=== PATIENT | female | born 1935 | race Caucasian/White ===

== ENCOUNTER → 2016-08-29 | Day surgery (SDC) | payer OTHER, MEDICARE ==
[2016-08-21 07:50] VITALS: Ht 151.1 cm; Wt 52.3 kg
[~2016-08-29] VITALS: Ht 151.1 cm; Wt 52.3 kg
[~2016-08-29] MED LIST: ACET1TAB84 PO; ALBUAER INH; APR50 PO; ATOR10TA88 PO; BRIM0.1S OPB; CALC500C3 PO; CHOL2000 PO; DOCU100C PO; FLUT0.15 NAE; FLUT1INH INH; LATA0.5S OPB; LIDOCAINE HCL 2% 2 ML VIAL (20MG/ML) ONE; LOSA1TAB38 PO; MELA5CAP PO; MULT-506 PO; NAPR1TAB9 PO; ONDANSETRON INJ 2 MG/ML 2 ML VIAL ONE; PRLSR20 PO; PROPOFOL IV EMULSION 10 MG/ML 20 ML VIAL IV ONE; PSYL48.59; RANI150T3 PO; SODIUM CHLORIDE 0.9% 500ML 500 ML IV ONE
--- NOTE | 2016-08-29 11:26 | Endo History and Physical ---
History & Physical Date of Service: Aug 29, 2016. Chief Complaint: GERD Referring Physician: Dr Jammie Bergeron History of Present Illness 81 yo CF who presents for EGD secondary to GERD. Past Surgical History Hx Cardiac Surgery: No Hx Internal Defibrillator: No Hx Pacemaker: No Hx Abdominal Surgery: Yes (ECTOPIC SX) Hx Post-Op Nausea and Vomiting: No Hx Cancer Surgery: No Hx Thoracic Surgery: No Hx Orthopedic: No Hx Urinary Tract Surgery: No Family History None Social History Smoking Status: Never Smoker Hx Substance Use: No Hx Alcohol Use: Yes (VERY RARELY) Allergies Coded Allergies: Beta Adrenergic Blockers (Verified Allergy, Mild, UNKNOWN, 08/29/16) Animal Dander (Verified Allergy, Unknown, INCREASES HER ASTHMA SYMPTOMS, ) Current Medications Reported Home Medications Medications Dose Route/Sig Max Daily Dose Days Date Category Proventil Hfa (Albuterol Sulfate) 108 Mcg/Act Aer 2 Puff INH DIRECTED PRN 08/21/16 Reported Xalatan 0.005% Oph Janny (Latanoprost) 0.005 % Janny 1 Drops OPB BID 08/21/16 Reported Alphagan P Oph (Brimonidine Tartrate) 0.1 % Janny 1 Drop OPB BID 08/21/16 Reported Vitamin D3 (Cholecalciferol) 2,000 Unit Cap 1 Cap PO QAM 90 08/21/16 Reported Prilosec (Omeprazole) 20 Mg Capcr 20 Mg PO QAM 08/21/16 Reported Zantac (Ranitidine HCl) 150 Mg Tab 2 Tab PO HS 08/21/16 Reported Lipitor (Atorvastatin Calcium) 10 Mg Tab 10 Mg PO 3XWK 08/21/16 Reported Cozaar (Losartan Potassium) 100 Mg Tab 100 Mg PO HS 08/21/16 Reported Hydralazine HCl 50 Mg Tab 1 Tab PO TID 08/21/16 Reported Vital Signs Weight (Kilograms): 52.27 Height (Feet): 4 Height (Inches): 11.5 Date Time Temp Pulse Resp B/P Pulse Ox O2 Delivery O2 Flow Rate FiO2 08/29/16 10:56 36.4 87 24 186/62 98 Room Air Physical Exam General Appearance: WD/WN, no apparent distress Respiratory/Chest: Auscultation: breath sounds normal Cardiovascular: Heart Auscultation: RRR Abdomen: Bowel Sounds: normal Inspection & Palpation: soft, non-distended, no tenderness, guarding & rebound Assessment and Plan Assessment: 81 yo CF who presents for EGD secondary to GERD. Plan: Proceed with EGD secondary to GERD
--- NOTE | 2016-08-29 12:25 | GI REPORT ---
Procedure Date: 08/29/2016 12:04 PM Procedure: Upper GI endoscopy Indications: Gastro-esophageal reflux disease Medicines: Monitored Anesthesia Care Complications: No immediate complications. Estimated Blood Loss: Estimated blood loss: none. Procedure: Pre-Anesthesia Assessment: - Prior to the procedure, a History and Physical was performed, and patient medications and allergies were reviewed. The patient's tolerance of previous anesthesia was also reviewed. The risks and benefits of the procedure and the sedation options and risks were discussed with the patient. All questions were answered, and informed consent was obtained. Prior Anticoagulants: The patient has taken no previous anticoagulant or antiplatelet agents. ASA Grade Assessment: III - A patient with severe systemic disease. After reviewing the risks and benefits, the patient was deemed in satisfactory condition to undergo the procedure. After obtaining informed consent, the endoscope was passed under direct vision. Throughout the procedure, the patient's blood pressure, pulse, and oxygen saturations were monitored continuously. The scope was introduced through the mouth, and advanced to the second part of duodenum. The upper GI endoscopy was accomplished without difficulty. The patient tolerated the procedure well. Findings: A mild Schatzki ring (acquired) was found at the gastroesophageal junction. A TTS dilator was passed through the scope. Dilation with a 12-13.5-15 mm balloon (to a maximum balloon size of 15 mm) and a 15-16.5-18 mm balloon (to a maximum balloon size of 18 mm) dilator was performed. The dilation site was examined and showed no change. A medium-sized hiatus hernia was present. The examined duodenum was normal. Impression: - Mild Schatzki ring. Dilated. - Medium-sized hiatus hernia. - Normal examined duodenum. - No specimens collected. Recommendation: - Resume previous diet. - Continue present medications. - Return to GI clinic as previously scheduled. Denton Gaines DO 08/29/2016 12:24:41 PM This report has been signed electronically. Note Initiated On: 08/29/2016 12:04 PM
--- NOTE | 2016-08-29 12:31 | Discharge Instructions ---
Endoscopy Patient Instructions Date / Procedure(s) Performed Aug 29, 2016. EGD Allergy Information Coded Allergies: Beta Adrenergic Blockers (Verified Allergy, Mild, UNKNOWN, 08/29/16) Animal Dander (Verified Allergy, Unknown, INCREASES HER ASTHMA SYMPTOMS, ) Discharge Date / Findings Aug 29, 2016. Schatzki's Ring s/p dilation Hiatal hernia Medication Instructions Stopped Medication(s): Hydralozine,Vitamin D3 OK to resume all medications today as prescribed. Reported Home Medications Medications Dose Route/Sig Max Daily Dose Days Date Category Proventil Hfa (Albuterol Sulfate) 108 Mcg/Act Aer 2 Puff INH DIRECTED PRN 08/21/16 Reported Xalatan 0.005% Oph Janny (Latanoprost) 0.005 % Janny 1 Drops OPB BID 08/21/16 Reported Alphagan P Oph (Brimonidine Tartrate) 0.1 % Janny 1 Drop OPB BID 08/21/16 Reported Vitamin D3 (Cholecalciferol) 2,000 Unit Cap 1 Cap PO QAM 90 08/21/16 Reported Prilosec (Omeprazole) 20 Mg Capcr 20 Mg PO QAM 08/21/16 Reported Zantac (Ranitidine HCl) 150 Mg Tab 2 Tab PO HS 08/21/16 Reported Lipitor (Atorvastatin Calcium) 10 Mg Tab 10 Mg PO 3XWK 08/21/16 Reported Cozaar (Losartan Potassium) 100 Mg Tab 100 Mg PO HS 08/21/16 Reported Hydralazine HCl 50 Mg Tab 1 Tab PO TID 08/21/16 Reported Provider Instructions Activity Restrictions - No exercising or heavy lifting for 24 hours. - Do not drink alcohol the day of the procedure. - Do not drive a car or operate machinery until the day after the procedure. - Do not make any important decisions or sign important papers in 24 hours after the procedure. Following Day: - Return to full activity which may include returning to work/school. Diet Start your diet with liquids and light foods (jello, soup, juice, toast). Then eat your usual diet if not nauseated. Treatment For Common After Affects For mild abdominal pain, bloating, or excessive gas: - Rest - Eat lightly - Lie on right side Follow-Up Information Follow-up with Dr Jammie Bergeron as scheduled Anesthesia Information What You Should Know You have had a procedure that required some medicine to reduce anxiety and discomfort. This treatment is called moderate sedation. After receiving the treatment, you may be sleepy, but you will be able to breathe on your own. The effects of the treatment may last for several hours. Follow these instructions along with Activity/Diet recommendations noted above: * Do NOT do anything where dizziness or clumsiness would be dangerous. * Rest quietly at home today, then you can be up and about tomorrow. * Have a responsible person stay with you the rest of today. * You may have had an I.V. today. If so, you may take the dressing off later today. Recommendations Call your doctor if: * Trouble breathing * Continuous vomiting for more than 24 hours * Temperature above 101 degrees * Severe abdominal pain or bloating * Pain not relieved by pain medicine ordered * There is increased drainage or redness from any incision * A large amount of rectal bleeding greater than 2-3 tablespoons. (If you had a polyp/s removed or have hemorrhoids, a small amount of blood - from the rectum is to be expected.) * You have any unanswered questions or concerns. IN THE EVENT OF A SERIOUS EMERGENCY, GO TO THE NEAREST EMERGENCY ROOM Your discharge instructions were prepared by provider Denton Gaines. Patient Instructions Signature Page Maude Pepper Patient (or Guardian) Signature/Date: I have read and understand the instructions given to me by my caregivers. Caregiver/RN/Doctor Signature/Date: The above-named patient and/or guardian has received patient instructions on this date. + Original Patient Signature Page (only) stays with chart. Please make copy for patient.
[2016-08-29 12:57] VITALS: BP 176/74; PULSE 54; O2SAT 98
--- NOTE | 2016-08-29 13:04 | Anesthesiology Progress Note ---
Anesthesia Post Op Note Date & Time Aug 29, 2016 at 13:03 Vital Signs Pain Intensity: 0 Vital Signs Past 12 Hours Date Time Temp Pulse Resp B/P Pulse Ox O2 Delivery O2 Flow Rate FiO2 08/29/16 12:53 175/70 08/29/16 12:42 53 22 180/50 98 Room Air 08/29/16 12:27 54 22 122/49 99 Room Air 08/29/16 10:56 36.4 87 24 186/62 98 Room Air Notes Mental Status: alert / awake / arousable, participated in evaluation Pt Amnestic to Procedure: Yes Nausea / Vomiting: adequately controlled Pain: adequately controlled Airway Patency, RR, SpO2: stable & adequate BP & HR: stable & adequate Hydration State: stable & adequate Anesthetic Complications: no major complications apparent
== END | disposition home or self-care (01) ==
LOC: C.GI 10:29
PROVIDERS: ATTEND Internal Medicine
DX: K21.9 Gastro-esophageal reflux disease without esophagitis (principal); K22.2 Esophageal obstruction; K44.9 Diaphragmatic hernia without obstruction or gangrene; K62.89 Other specified diseases of anus and rectum; K59.00 Constipation, unspecified; Z68.23 Body mass index [BMI] 23.0-23.9, adult; Z90.89 Acquired absence of other organs; E11.9 Type 2 diabetes mellitus without complications; F41.9 Anxiety disorder, unspecified; Z79.82 Long term (current) use of aspirin; Z82.49 Family history of ischemic heart disease and other diseases of the circulatory system; Z83.3 Family history of diabetes mellitus

== ENCOUNTER → 2016-11-25 | Day surgery (SDC) | payer OTHER, MEDICARE ==
[2016-11-21 14:22] VITALS: Ht 151.1 cm; Wt 52.3 kg
[~2016-11-25] VITALS: Ht 151.1 cm; Wt 52.3 kg
[~2016-11-25] MED LIST changes: +ATOR10TA82 PO; -ATOR10TA88 PO; +BRIMONIDINE TART 0.2% OP SOLN PER DROP CHARGE OPR ONE; +BRIMONIDINE TART 0.2% OP SOLN PER DROP CHARGE OPR SCH; +BRIMONIDINE TARTRATE 0.2% 5ML OP SCH; -LATA0.5S OPB; -LIDOCAINE HCL 2% 2 ML VIAL (20MG/ML) ONE; -ONDANSETRON INJ 2 MG/ML 2 ML VIAL ONE; +PILOCARPINE HCL 2% OP SOLN PER DROP CHARGE OPR SCH; +PREDNISOLONE 1% OP ONE; +PROPARACAINE 0.5% OP SOLN PER DROP CHARGE OPR SCH; -PROPOFOL IV EMULSION 10 MG/ML 20 ML VIAL IV ONE; +PrednisoLONE ACET 1% OP SUSP 5 ML BTL OP SCH; -SODIUM CHLORIDE 0.9% 500ML 500 ML IV ONE
--- NOTE | 2016-11-25 11:42 | History and Physical: Surg Cnt ---
History & Physical Date Nov 25, 2016. Chief Complaint glaucoma, right eye History of Present Illness The patient is a 81 year old female with complaints of uncontrolled glaucoma right eye Past Medical/Surgical History Medical Problems: (1) Asthma (2) Diabetes mellitus type 2 (3) Hiatal hernia (4) Hypertension Additional History Hepatic Disease: No Endocrine Disorder: No Kidney Disease: No Hypertension: Yes Heart Disease: No Bleeding Tendencies: No Infectious Diseases: No Allergies Coded Allergies: Beta Adrenergic Blockers (Verified Allergy, Mild, MAKES BREATHING/ASTHMA WORSE, 11/21/16) Animal Dander (Verified Allergy, Unknown, INCREASES HER ASTHMA SYMPTOMS, ) Home Medications Scheduled Atorvastatin (Lipitor), 10 MG PO 3XWK Brimonidine Tartrate (Alphagan P Oph), 1 DROP OPB BID Cholecalciferol (Vitamin D3), 1 CAP PO QAM Hydralazine HCl (Hydralazine HCl), 1 TAB PO TID Losartan Potassium (Cozaar), 100 MG PO HS Scheduled PRN Albuterol Sulfate (Proventil Hfa), 2 PUFF INH DIRECTED PRN for Shortness of Breath Fluticasone Furoate-Vilanterol (Breo Ellipta), 1 PUFF INH QAM PRN for Shortness of Breath Omeprazole (Prilosec), 20 MG PO QAM PRN for Indigestion Ranitidine Hcl (Zantac), 2 TAB PO HS PRN for Indigestion Physical Examination Skin: warm/dry, no rash Eyes: normal inspection, EOMI, sclerae normal ENT: normal ENT inspection, pharynx normal Head: normocephalic, atraumatic Neck: supple, no adenopathy, trachea midline Respiratory/Chest: lungs clear, normal breath sounds, no respiratory distress Cardiovascular: regular rate, rhythm, no edema, no murmur Abdomen / GI: normal bowel sounds, non tender Back: normal inspection Extremities: normal inspection, normal range of motion Neurologic/Psych: no motor/sensory deficits, alert, normal reflexes, oriented x 3 Diagnosis Glaucoma, right eye ASA Classification: ASA Class II Plan of Treatment Stable for SLT right eye
[2016-11-25 12:03] VITALS: BP 158/48; PULSE 49; O2SAT 97
--- NOTE | 2016-11-25 12:05 | Discharge Instructions-SurgCtr ---
Discharge Instructions Date of Service Nov 25, 2016. Visit Reason for Visit: Glaucoma Right Eye Discharge Discharge Diagnosis / Problem: glaucoma Discharge Goals Goal(s): Improve disease control Activity Recommendations Activity Limitations: per Instructions/Follow-up section Anesthesia . Post Anesthesia Instructions: If you have had General Anesthesia or IV Sedation: * Do not drive today. * Resume driving when surgeon permits. * Do not make important decisions or sign legal documents today. * Call surgeon for: 1. Temperature elevations greater than 101 degrees F. 2. Uncontrollable pain. 3. Excessive bleeding. 4. Persistent nausea and vomiting. 5. Medication intolerance (nausea, vomiting or rash). * For nausea and vomiting use only clear liquids such as: tea, soda, bouillon until nausea subsides, then gradually increase diet as tolerated. * If you have any concerns or questions, call your surgeon's office. If physician is unavailable and it is an emergency, call 911 or go to the nearest emergency room. . Instructions / Follow-Up Instructions / Follow-Up ACTIVITY RECOMMENDATIONS: * No limitations RETURN TO SCHOOL/WORK: * No limitations DIET: * No limitations MEDICATIONS: Resume previous medications unless instructed otherwise by your surgeon. * Please use Prednisolone acetate drops prescription given to you at your office appointment as follows: 1 drop in effected eye 4 times a day for 5 days. * Continue all glaucoma drops as usual with no interruption to either eye. SPECIAL CARE INSTRUCTIONS: Call your doctor at with any concerns or problems. FOLLOW UP VISIT: Follow-up with Dr Sage in 1 hour. Diet Recommendations Home Diet: resume previous diet Pending Studies Studies pending at discharge: no Medical Emergencies . Who to Call and When: Medical Emergencies: If at any time you feel your situation is an emergency, please call 911 immediately. . Non-Emergent Contact Non-Emergency issues call your: [employer] . . "Provider Documentation" section prepared by Scott Sage.
--- NOTE | 2016-11-25 12:06 | [facility] Operative Report ---
Operative Report Date of Service Nov 25, 2016. Operative Report Diagnosis: Glaucoma, open angle, right eye Procedure: SLT right eye, 52 spots, 1.3mJ, inferior 180 degrees Complications: none I attest to the content of the Intraoperative Record and any orders documented therein. Any exceptions are noted below.
== END | disposition home or self-care (01) ==
LOC: X.SURG 10:45
PROVIDERS: ATTEND Ophthalmology
DX: H40.10X0 Unspecified open-angle glaucoma, stage unspecified (principal); J45.909 Unspecified asthma, uncomplicated; E11.9 Type 2 diabetes mellitus without complications; I10 Essential (primary) hypertension; Z79.899 Other long term (current) drug therapy

== ENCOUNTER → 2017-05-04 | Outpatient (CLI) | payer OTHER, MEDICARE ==
[~2017-05-04] VITALS: Ht 151.1 cm; Wt 53.8 kg
[~2017-05-04] MED LIST changes: +ACETAMINOPHEN 500 MG TAB PO SCH; -BRIMONIDINE TART 0.2% OP SOLN PER DROP CHARGE OPR ONE; -BRIMONIDINE TART 0.2% OP SOLN PER DROP CHARGE OPR SCH; -BRIMONIDINE TARTRATE 0.2% 5ML OP SCH; +CEFAZOLIN 1000MG/55 ML D5W IV SCH; +CEFAZOLIN 2000 MG/60 ML D5W 60 ML IV SCH; +CeleBREX 200 MG CAP PO SCH; +DEXAMETHASONE 4 MG TAB PO SCH; +FAMOTIDINE 20 MG TAB PO SCH; +GABAPENTIN 300 MG CAP PO SCH; +LACTATED RINGER'S 1000ML 1,000 ML IV SCH; +LACTATED RINGER'S 1000ML 500 ML IV ONE; +METOCLOPRAMIDE HCL 10 MG TAB PO SCH; -PILOCARPINE HCL 2% OP SOLN PER DROP CHARGE OPR SCH; -PREDNISOLONE 1% OP ONE; -PROPARACAINE 0.5% OP SOLN PER DROP CHARGE OPR SCH; -PrednisoLONE ACET 1% OP SUSP 5 ML BTL OP SCH; +ROPIVACAINE 5MG/ML 30 ML 150 MG, BUPIVACAINE/EPINEPHR 0.5% MPF 30 ML, KETOROLAC TROMETH... INFIL SCH; +TRANEXAMIC ACID INJ 1,000 MG in SODIUM CHLORIDE 0.9% 100ML 100 ML IV SCH
[2017-05-04 12:16] VITALS: Ht 151.1 cm; Wt 53.8 kg
--- NOTE | 2017-05-04 13:12 | PAT Medication Instructions ---
Service Date May 04, 2017. Current Home Medication List Acetaminophen (Tylenol Arthritis Ext Rel), 2 TAB PO Q8H PRN for Pain Albuterol Sulfate (Proventil Hfa), 2 PUFF INH DIRECTED PRN for Shortness of Breath Atorvastatin (Lipitor), 10 MG PO 3XWK Brimonidine Tartrate (Alphagan P Oph), 1 DROP OPB BID Calcium Carbonate (Tums), 1 DOSE PO UD Cholecalciferol (Vitamin D3), 1 CAP PO QAM Docusate Sodium (Stool Softener), 1 TAB PO Q2D Fluticasone Furoate-Vilanterol (Breo Ellipta), 1 PUFF INH Q2D PRN for Shortness of Breath Fluticasone Propionate (Nasal) (Flonase Allergy Relief), 1 DOSE ABAD UD PRN for PRN Hydralazine HCl (Hydralazine HCl), 1 TAB PO TID Losartan Potassium (Cozaar), 100 MG PO HS Melatonin (Melatonin), 1 TAB PO HS Multivitamin (Multivitamin), 1 TAB PO 3XWK Naproxen (Aleve), 220 MG PO UD PRN for Pain Psyllium (Metamucil), Unknown Dose QAM Ranitidine Hcl (Zantac), 1 TAB PO HS PRN for Indigestion Medication Instructions For Your Scheduled Surgery - Continue as usual: Atorvastatin (Lipitor), 10 MG PO 3XWK - Hold the following medications 7 days prior to surgery per surgeon's instructions: Naproxen (Aleve), 220 MG PO UD PRN for Pain - Hold the following medications 24 hours prior to surgery: Losartan Potassium (Cozaar), 100 MG PO HS - Hold the following medications the morning of surgery: Psyllium (Metamucil), Unknown Dose QAM Calcium Carbonate (Tums), 1 DOSE PO UD Cholecalciferol (Vitamin D3), 1 CAP PO QAM Multivitamin (Multivitamin), 1 TAB PO 3XWK - Take the following medications the morning of surgery with a sip of water: Fluticasone Furoate-Vilanterol (Breo Ellipta), 1 PUFF INH Q2D PRN for Shortness of Breath Fluticasone Propionate (Nasal) (Flonase Allergy Relief), 1 DOSE ABAD UD PRN for PRN (if needed) Hydralazine HCl (Hydralazine HCl), 1 TAB PO TID Brimonidine Tartrate (Alphagan P Oph), 1 DROP OPB BID (BRING WITH YOU THE MORNING OF THE SURGERY) Acetaminophen (Tylenol Arthritis Ext Rel), 2 TAB PO Q8H PRN for Pain (can take up to 4 hours before surgery if needed) Albuterol Sulfate (Proventil Hfa), 2 PUFF INH DIRECTED PRN for Shortness of Breath (if needed, AND BRING WITH YOU THE MORNING OF THE SURGERY) - Take the following medications as scheduled the night before surgery: Ranitidine Hcl (Zantac), 1 TAB PO HS PRN for Indigestion Melatonin (Melatonin), 1 TAB PO HS Hydralazine HCl (Hydralazine HCl), 1 TAB PO TID Acetaminophen (Tylenol Arthritis Ext Rel), 2 TAB PO Q8H PRN for Pain (if needed) Albuterol Sulfate (Proventil Hfa), 2 PUFF INH DIRECTED PRN for Shortness of Breath (if needed) Brimonidine Tartrate (Alphagan P Oph), 1 DROP OPB BID Docusate Sodium (Stool Softener), 1 TAB PO Q2D Fluticasone Propionate (Nasal) (Flonase Allergy Relief), 1 DOSE ABAD UD PRN for PRN (if needed) If you have any questions please call us at [phone] or [phone] or [phone]
[2017-05-04 13:50] LABS: BASO % 1.2 %; BASO ABS # 0.09 K/uL (0-0.2); COMPLETE YES; EOS % 2.6 %; HEMATOCRIT 38.9 % (37-47); IG% 0.1 %; LYMPH % 29.7 %; MEAN CELL VOLUME 93.5 fL (80-100); MEAN CORPUSCULAR HEMOGLOBIN 31.7 pg (25-34); MEAN CORPUSCULAR HGB CONC 33.9 g/dl (32-36); MEAN PLATELET VOLUME 9.7 fL (7.4-10.4); MONO % 6.7 %; NEUT % 59.7 %; PLATELET COUNT 322 K/uL (130-400); RED BLOOD COUNT 4.16 M/uL (4.2-5.4); WHITE BLOOD COUNT 7.41 K/uL (4.8-10.8)
[2017-05-04 13:58] LABS: URINE APPEARANCE CLEAR (CLEAR); URINE BILIRUBIN NEG (NEG); URINE COLOR DK YELLOW; URINE EPITHELIAL CELL AUTO >30 /lpf (0-5); URINE NITRITE NEG (NEG); URINE PH 5.5 (4.5-7.5); URINE SPECIFIC GRAVITY 1.016 (1.000-1.030); UROBILINOGEN NEG (NEG)
[2017-05-04 14:01] LABS: MANUAL MICROSCOPIC REQUIRED? NO; REVIEW REQ? NO
[2017-05-04 14:02] LABS: PROTHROMBIN TIME (PATIENT) 10.3 SECONDS (9.0-12.0)
[2017-05-04 15:13] LABS: BUN/CREATININE RATIO 20.9 (10-20); CALCIUM 9.5 mg/dl (8.5-10.1); CREATININE 0.79 mg/dl (0.60-1.20); POTASSIUM 4.8 mmol/L (3.5-5.1)
[2017-05-05 07:09] LABS: ESTIMATED AVERAGE GLUCOSE 146 mg/dl; HA1C FLAG Normal (Normal)
== END | disposition home or self-care (01) ==
LOC: C.LAB 08:00 → EDSTATUS 05-13 08:05
PROVIDERS: ATTEND Orthopaedic Surgery
DX: Z01.812 Encounter for preprocedural laboratory examination (principal); Z01.810 Encounter for preprocedural cardiovascular examination; M17.12 Unilateral primary osteoarthritis, left knee

== ENCOUNTER → 2017-08-25 | Outpatient (CLI) | payer OTHER, MEDICARE ==
[~2017-08-25] MED LIST changes: -ACETAMINOPHEN 500 MG TAB PO SCH; -CEFAZOLIN 1000MG/55 ML D5W IV SCH; -CEFAZOLIN 2000 MG/60 ML D5W 60 ML IV SCH; -CeleBREX 200 MG CAP PO SCH; -DEXAMETHASONE 4 MG TAB PO SCH; -FAMOTIDINE 20 MG TAB PO SCH; -GABAPENTIN 300 MG CAP PO SCH; -LACTATED RINGER'S 1000ML 1,000 ML IV SCH; -LACTATED RINGER'S 1000ML 500 ML IV ONE; -METOCLOPRAMIDE HCL 10 MG TAB PO SCH; +OPTIRAY 320 IV PRN; -PRLSR20 PO; -ROPIVACAINE 5MG/ML 30 ML 150 MG, BUPIVACAINE/EPINEPHR 0.5% MPF 30 ML, KETOROLAC TROMETH... INFIL SCH; -TRANEXAMIC ACID INJ 1,000 MG in SODIUM CHLORIDE 0.9% 100ML 100 ML IV SCH
--- NOTE | 2017-08-25 11:38 | DIAGNOSTIC IMAGING REPORT ---
CHEST CT WITH CONTRAST CT DOSE: 239.97 mGycm HISTORY: Follow-up study in a patient with pulmonary nodules R91.8 TECHNIQUE: Multiaxial CT images of the chest were performed following the intravenous administration of contrast. A dose lowering technique was utilized adhering to the principles of ALARA. COMPARISON: CT chest 05/29/2015 an 05/10/2013. FINDINGS: No dominant thyroid nodule identified. No pathologic adenopathy about the chest identified. The heart is upper limits of normal in size with coronary arterial disease present. There is moderate atherosclerosis of the aorta without aneurysm or dissection. The imaged great vessels appear patent. Mild kinking and tortuosity of the mid right subclavian artery. The opacified pulmonary arterial tree appears unremarkable. There is no pneumothorax, pleural effusion, focal airspace consolidation or overt pulmonary edema. There are several solid randomly distributed noncalcified pulmonary nodules noted throughout the bilateral lungs, greatest at the level of the lung bases measuring up to 5 mm as seen on image 202 series 4 within the posterior basal segment right lower lobe. No new or enlarging pulmonary nodules identified. The central airways are patent. There are calcifications of the tracheobronchial tree. Moderate sized hiatal hernia. No acute abnormality of the imaged upper abdomen. Soft tissues are unremarkable. Bones appear osteopenic. Multilevel degenerative changes of the spine. There is increased kyphosis of the thoracic spine. IMPRESSION: 1. No acute intrathoracic abnormality identified. 2. Multiple randomly distributed bilateral solid noncalcified pulmonary nodules are again seen, greatest within the bilateral lower lobes measuring up to 5 mm. These appear unchanged dating back to 05/10/2013 suggesting benign etiology. No new or enlarging pulmonary nodules are identified. 3. Moderate sized hiatal hernia. Electronically signed by: Darci Israel M.D. 08/25/2017 11:36 AM Dictated Date/Time: 08/25/2017 11:24 AM
== END | disposition home or self-care (01) ==
LOC: C.CTS 10:31
PROVIDERS: ATTEND Internal Medicine
DX: R91.8 Other nonspecific abnormal finding of lung field (principal); R06.02 Shortness of breath; R05 Cough; K44.9 Diaphragmatic hernia without obstruction or gangrene

== ENCOUNTER 2017-12-05 19:38 | Inpatient (IN) | payer OTHER, MEDICARE ==
[~2017-12-05] VITALS: Ht 149.9 cm; Wt 53.0 kg
[~2017-12-05 19:38] MED LIST changes: -OPTIRAY 320 IV PRN
[2017-12-05] MEDS ORDERED: SODIUM CHLORIDE 0.9% 1000ML 1,000 ML IV STA (19:49)
[2017-12-05] MEDS ORDERED: ASPIRIN 81 MG CHEW PO STA (19:49)
[2017-12-05 20:18] LABS: BASO % 1.7 %; BASO ABS # 0.16 K/uL (0-0.2); EOS % 6.8 %; EOS ABS # 0.65 K/uL (0-0.5); HEMOGLOBIN 13.5 g/dL (12.0-16.0); IG# 0.01 K/uL (0.00-0.02); LYMPH % 39.3 %; LYMPH ABS # 3.76 K/uL (1.2-3.4); MEAN CELL VOLUME 93.6 fL (80-100); MEAN CORPUSCULAR HEMOGLOBIN 30.8 pg (25-34); MEAN CORPUSCULAR HGB CONC 32.9 g/dl (32-36); MEAN PLATELET VOLUME 9.9 fL (7.4-10.4); MONO % 6.5 %; MONO ABS # 0.62 K/uL (0.11-0.59); NEUT % 45.6 %; NEUT ABS # 4.36 K/uL (1.4-6.5); PLATELET COUNT 309 K/uL (130-400); RED CELL DISTRIBUTION WIDTH CV 12.9 % (11.5-14.5); WHITE BLOOD COUNT 9.56 K/uL (4.8-10.8)
--- NOTE | 2017-12-05 20:19 | DIAGNOSTIC IMAGING REPORT ---
CHEST ONE VIEW PORTABLE CLINICAL HISTORY: Chest Pain pain COMPARISON STUDY: 07/15/2016 FINDINGS: The bones soft tissues and hemidiaphragms are normal. The cardiomediastinal silhouette is normal. The lungs are clear. The pulmonary vasculature is normal. IMPRESSION: Negative chest. The above report was generated using voice recognition software. It may contain grammatical, syntax or spelling errors. Electronically signed by: Hamilton Cruz M.D. 12/05/2017 8:18 PM Dictated Date/Time: 12/05/2017 8:18 PM
[2017-12-05 20:45] LABS: BLOOD UREA NITROGEN 27 mg/dl (7-18); CALCIUM 8.9 mg/dl (8.5-10.1); CARBON DIOXIDE 23 mmol/L (21-32); CREATININE 1.17 mg/dl (0.60-1.20); GLUCOSE 265 mg/dl (70-99); POTASSIUM 4.7 mmol/L (3.5-5.1); SODIUM 141 mmol/L (136-145)
[2017-12-05] MEDS ORDERED: MoRPHine SULFATE 4 MG/ML 1 ML CARP\\VIAL IV STA (20:46)
[2017-12-05] MEDS ORDERED: NITROGLYCERIN 0.4 MG SL PER TAB CHARGE SL PRN ×2 (21:00→22:45)
[2017-12-05] MEDS ORDERED: SODIUM CHLORIDE 0.9% 500ML 500 ML IV STA (21:03)
[2017-12-05] MEDS ORDERED: ACETAMINOPHEN 500 MG TAB PO STA (21:18)
[2017-12-05] MEDS ORDERED: MULT-1092 PO (21:26)
[2017-12-05] MEDS ORDERED: MELA1CAP9 PO (21:26)
[2017-12-05] MEDS ORDERED: GLUCTAB18 PO (21:26)
--- NOTE | 2017-12-05 21:27 | EMERGENCY ROOM VISIT NOTE ---
History Report prepared by Diego: Whit Ward Under the Supervision of: Dr. Jim Fernandez D.O. First contact with patient: 19:42 Chief Complaint: CHEST PAIN Stated Complaint: CHEST PAINS Nursing Triage Summary: pt c/o mid sternal chest pain and back pain beginning approx 1 hour ago after taking a bath. pt associates back pain as well. pt has hx of "heart fluttering and racing". pt has hx of Shortness of breath but reports SOB associated with this chest pain is "a little worse". pt denies recent illness. pt shaking, denies chills. states "this happened before when my heart was racing. 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 She is accompanied by her who states that his was taking a bath when she suddenly felt her heart racing. She describes her pain as "pressure " and she also has some SOB. She does describe it as a burning/pressure. She notes she has a history of asthma and has an inhaler but denies any heart history. No other exacerbating or remitting factors. Pt denies headache, fevers, nausea, vomiting, diarrhea, or pain with urination. 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 Review of Systems See HPI for pertinent positives & negatives. A total of 10 systems reviewed and were otherwise negative. Past Medical & Surgical Medical Problems: (1) Asthma (2) Chest pain (3) Diabetes mellitus type 2 (4) Hiatal hernia (5) Hypertension (6) ST segment changes on electrocardiogram Family History Diabetes mellitus Heart disease Hypertension Lung disease Social History Smoking Status: Never Smoker Alcohol Use: none Drug Use: none Marital Status: Housing Status: lives with family Occupation Status: retired Current/Historical Medications Scheduled Atorvastatin (Lipitor), 10 MG PO HS Brimonidine Tartrate (Alphagan P Oph), 2 DROP OPB BID Calcium Carbonate (Tums), 1 DOSE PO HS Cholecalciferol (Vitamin D3), 1 CAP PO QAM Docusate Sodium (Stool Softener), 1 TAB PO Q2D Glucosamine-Chondroitin (Osteo Bi-Flex Regular Str), 1 TAB PO 3XWK Hydralazine HCl (Hydralazine HCl), 1 TAB PO TID Losartan Potassium (Cozaar), 100 MG PO HS Melatonin (Melatonin), 10 MG PO PM Multiple Vitamins W/ Minerals (Centrum Silver 50+Women), 1 TAB PO MWF Multivitamin (Multivitamin), 1 TAB PO 3XWK Psyllium (Metamucil), Unknown Dose QAM Scheduled PRN Acetaminophen (Tylenol Arthritis Ext Rel), 2 TAB PO Q8H PRN for Pain Fluticasone Furoate-Vilanterol (Breo Ellipta), 1 PUFF INH Q2D PRN for Shortness of Breath Fluticasone Propionate (Nasal) (Flonase Allergy Relief), 2 SPRAYS ABAD HS PRN for PRN Naproxen (Aleve), 220 MG PO UD PRN for Pain Ranitidine Hcl (Zantac), 1 TAB PO HS PRN for Indigestion Allergies Coded Allergies: Beta Adrenergic Blockers (Verified Allergy, Mild, MAKES BREATHING/ASTHMA WORSE, 12/05/17) Animal Dander (Verified Allergy, Unknown, INCREASES HER ASTHMA SYMPTOMS, ) Physical Exam Vital Signs Date Time Temp Pulse Resp B/P (MAP) Pulse Ox O2 Delivery O2 Flow Rate FiO2 12/05/17 23:56 94 12/05/17 23:53 89 162/79 97 Room Air 12/05/17 23:01 105 23 166/79 97 Room Air 12/05/17 22:41 106 26 170/77 96 Room Air 12/05/17 22:11 104 18 180/73 97 Room Air 12/05/17 22:08 108 20 180/73 97 Room Air 12/05/17 21:13 129 16 170/94 97 Room Air 12/05/17 21:11 128 21 95 12/05/17 21:01 170/94 12/05/17 20:41 111 28 97 12/05/17 20:36 116 23 191/69 97 Room Air 12/05/17 20:01 118 26 177/62 97 Room Air 12/05/17 19:52 125/87 12/05/17 19:46 135 12/05/17 19:45 97 Room Air 12/05/17 19:39 36.3 140 18 206/90 97 Room Air Physical Exam GENERAL: Sitting up in bed, alert, disheveled appearing, well nourished, no distress, non-toxic EYE EXAM: normal conjunctiva. OROPHARYNX: no exudate, no erythema, lips, buccal mucosa, and tongue normal and mucous membranes are moist NECK: supple, no nuchal rigidity, no adenopathy, non-tender LUNGS: Clear to auscultation. Normal chest wall mechanics HEART: no murmurs, S1 normal and S2 normal. tachycardic. ABDOMEN: abdomen soft, non-tender, normo-active bowel sounds, no masses, no rebound or guarding. BACK: Back is symmetrical on inspection and there is no deformity, no midline tenderness, no CVA tenderness. SKIN: no rashes and no bruising UPPER EXTREMITIES: upper extremities are grossly normal. LOWER EXTREMITIES: No pitting edema. Calves are equal bilaterally. NEURO EXAM: Normal sensorium, cranial nerves II-XII grossly intact, normal speech, no gross weakness of arms, no gross weakness of legs. Medical Decision & Procedures ER Provider Diagnostic Interpretation: Radiology results as stated below per my review and the radiologist's interpretation: CHEST ONE VIEW PORTABLE CLINICAL HISTORY: Chest Pain pain COMPARISON STUDY: 07/15/2016 FINDINGS: The bones soft tissues and hemidiaphragms are normal. The cardiomediastinal silhouette is normal. The lungs are clear. The pulmonary vasculature is normal. IMPRESSION: Negative chest. The above report was generated using voice recognition software. It may contain grammatical, syntax or spelling errors. Electronically signed by: Hamilton Cruz M.D. 12/05/2017 8:18 PM (CHEST FOR PE) ANGIO WITH CT DOSE: 393.89 mGy.cm HISTORY: Chest pain dyspnea TECHNIQUE: Multiaxial CT images of the chest were performed following the intravenous administration of contrast to evaluate the pulmonary arteries. Maximal intensity projection images were also obtained. A dose lowering technique was utilized adhering to the principles of ALARA. COMPARISON STUDY: 08/25/2017 FINDINGS: There is a normal caliber thoracic aorta with no evidence for dissection. There is no evidence for pulmonary embolus. No pleural effusions. No pneumothorax. The liver and spleen are unremarkable. No mediastinal or hilar lymphadenopathy. The central airways are patent. The lungs are clear. Small fixed hiatal hernia. IMPRESSION: No evidence for pulmonary embolus. The lungs are clear. Stable basilar pulmonary micronodule change. Hiatal hernia. The above report was generated using voice recognition software. It may contain grammatical, syntax or spelling errors. Electronically signed by: Hamilton Cruz M.D. 12/05/2017 10:21 PM Laboratory Results 12/05/17 19:45 Red Blood Count 4.38, Mean Corpuscular Volume 93.6, Mean Corpuscular Hemoglobin 30.8, Mean Corpuscular Hemoglobin Concent 32.9, Mean Platelet Volume 9.9, Neutrophils (%) (Auto) 45.6, Lymphocytes (%) (Auto) 39.3, Monocytes (%) (Auto) 6.5, Eosinophils (%) (Auto) 6.8, Basophils (%) (Auto) 1.7, Neutrophils # (Auto) 4.36, Lymphocytes # (Auto) 3.76, Monocytes # (Auto) 0.62, Eosinophils # (Auto) 0.65, Basophils # (Auto) 0.16 12/05/17 19:45 Test 12/05/17 19:45 12/05/17 21:25 12/05/17 21:45 White Blood Count 9.56 K/uL (4.8-10.8) Red Blood Count 4.38 M/uL (4.2-5.4) Hemoglobin 13.5 g/dL (12.0-16.0) Hematocrit 41.0 % (37-47) Mean Corpuscular Volume 93.6 fL (80-100) Mean Corpuscular Hemoglobin 30.8 pg (25-34) Mean Corpuscular Hemoglobin Concent 32.9 g/dl (32-36) Platelet Count 309 K/uL (130-400) Mean Platelet Volume 9.9 fL (7.4-10.4) Neutrophils (%) (Auto) 45.6 % Lymphocytes (%) (Auto) 39.3 % Monocytes (%) (Auto) 6.5 % Eosinophils (%) (Auto) 6.8 % Basophils (%) (Auto) 1.7 % Neutrophils # (Auto) 4.36 K/uL (1.4-6.5) Lymphocytes # (Auto) 3.76 K/uL (1.2-3.4) Monocytes # (Auto) 0.62 K/uL (0.11-0.59) Eosinophils # (Auto) 0.65 K/uL (0-0.5) Basophils # (Auto) 0.16 K/uL (0-0.2) RDW Standard Deviation 44.0 fL (36.4-46.3) RDW Coefficient of Variation 12.9 % (11.5-14.5) Immature Granulocyte % (Auto) 0.1 % Immature Granulocyte # (Auto) 0.01 K/uL (0.00-0.02) Anion Gap 6.0 mmol/L (3-11) Est Creatinine Clear Calc Drug Dose 29.0 ml/min Estimated GFR () 50.6 Estimated GFR (Non- 43.7 BUN/Creatinine Ratio 22.8 (10-20) Calcium Level 8.9 mg/dl (8.5-10.1) Troponin I < 0.015 ng/ml (0-0.045) Chemistry Specimen Hemolysis Prothrombin Time 9.7 SECONDS (9.0-12.0) Prothromb Time International Ratio 0.9 (0.9-1.1) Activated Partial Thromboplast Time 24.2 SECONDS (21.0-31.0) Partial Thromboplastin Ratio 0.9 D-Dimer 550 ug/L FEU (0-500) Total Bilirubin 0.2 mg/dl (0.2-1) Direct Bilirubin < 0.1 mg/dl (0-0.2) Aspartate Amino Transf (AST/SGOT) 30 U/L (15-37) Alanine Aminotransferase (ALT/SGPT) 30 U/L (12-78) Alkaline Phosphatase 68 U/L (45-117) Total Protein 7.4 gm/dl (6.4-8.2) Albumin 3.5 gm/dl (3.4-5.0) Thyroid Stimulating Hormone (TSH) 2.800 uIu/ml (0.300-4.500) Laboratory results per my review. Medications Administered Medications (Trade) Dose Ordered Sig/Michael Route Start Time Stop Time Status Last Admin Dose Admin Sodium Chloride 1,000 ml @ 999 mls/hr Q1H1M STAT IV 12/05/17 19:49 12/05/17 20:49 DC 12/05/17 20:02 999 MLS/HR Aspirin (Aspirin Chew) 324 mg NOW STAT PO 12/05/17 19:49 12/05/17 19:50 DC 12/05/17 20:02 324 MG Sodium Chloride 500 ml @ 999 mls/hr Q31M STAT IV 12/05/17 21:03 12/05/17 21:33 DC 12/05/17 21:17 999 MLS/HR Nitroglycerin (Nitroglycerin 2% Oint) 2 inch Q6H EXT 12/05/17 21:30 01/04/18 21:29 12/05/17 21:30 2 INCH Acetaminophen (Tylenol Tab) 500 mg NOW STAT PO 12/05/17 21:18 12/05/17 21:20 DC 12/05/17 21:47 500 MG Heparin Sodium/ Dextrose (Heparin 25,000 Unit/500ml D5W) 25,000 unit STK-MED ONCE .ROUTE 12/05/17 22:20 12/05/17 22:21 DC 12/05/17 22:25 25,000 UNIT Heparin Sodium (Porcine) (Heparin Sq 5000 Unit/0.5ml) 5,000 unit STK-MED ONCE .ROUTE 12/05/17 22:21 12/05/17 22:22 DC 12/05/17 22:24 5,000 UNIT Al Hydrox/Mg Hydrox/Simethicone (Maalox Max Susp) 15 ml Q4H PRN PO 12/05/17 22:45 01/04/18 22:44 12/05/17 23:08 15 ML ECG Per My Interpretation Indication: chest pain Rate (beats per minute): 154 Rhythm: sinus tachycardia Findings: ST depression (Lateral), other (normal axis, poor baseline in the inferior, slight elevations in V1) Comparison ECG Date: Change: Repeat EKG showed the same as the first but with a rate of 135. The 3rd EKG showed sinus tachycarida with a rate of 124. Normal axis, ST depressions in the lateral and anterior leads. Compared to the EKG from , the lateral changes are old. 4th EKG shows sinus tachycardia with a rate of 117, normal axis. Persistent ST depression in the anterior and lateral leads ED Course ED COURSE: Vital signs were reviewed and showed tachycardia The patients medical record was reviewed The above diagnostic studies were performed and reviewed. ED treatments and interventions as stated above. 1942: The patient was evaluated in room C11. A complete history and physical examination was performed. 1948: Aspirin chew 324 mg PI Sodium Chloride 1000 ml @ 999 mls/hr IV 2045: Morphine Sulfate 4 mg IV 2099: Nitroglycerin 0.4 mg SL 2099: I reviewed the patient's case with Nila Saldana. He will evaluate the patient for further management. Based on the patients age, coexisting illnesses, exam and lab findings the decision to treat as an inpatient was made. The patient remained stable while under my care. The patient will be evaluated for further management. Medical Decision Differential diagnoses includes but is not limited to acute coronary syndrome, myocardial infarction, pericarditis, pulmonary embolus, aortic dissection, pneumonia, pneumothorax, musculoskeletal, shingles, esophageal. Patient is an 82-year-old female who presents the ER for chest pain associated with palpitations. Upon presentation heart rates in the 130s. She does have some chest pressure. EKG was obtained and did show some mild increase in ST changes in the inferior and lateral compared to her old EKG in 2012. BMP was unremarkable along with LFTs and troponin. D-dimer was elevated and consequently CT PE was performed which was negative. Patient was given aspirin. She was also given nitro. Chest pain resolved. Repeat EKGs did show some slight worsening of ST wave changes which were subtle. The consequently place her on a heparin drip and bolus. She was pain-free at this time. She denied any recent trauma, head bleeds, coughing up blood, vomiting blood, urinating blood or any other previous intracranial bleeds. Patient family were updated at bedside. Medication Reconcilliation Current Medication List: was personally reviewed by me Blood Pressure Screening Patient's blood pressure: Elevated blood pressure Blood pressure disposition: Elevated BP felt to be situational Consults Time Called: 2054 Consulting Physician: Nila Saldana Returned Call: 2099 I reviewed the patient's case with Nila Saldana. He will evaluate the patient for further management. Impression Primary Impression: ACS (acute coronary syndrome) Additional Impression: ST segment changes on electrocardiogram Critical Care I have personally spent 35 minutes of critical care time in the direct management of this patient. This includes bedside care, interpretation of diagnostic studies, and testing, discussion with consultants, patient, and family members, and other required patient management activities. This 35 minutes is in excess of all separately billable procedures. Scribe Attestation The scribe's documentation has been prepared under my direction and personally reviewed by me in its entirety. I confirm that the note above accurately reflects all work, treatment, procedures, and medical decision making performed by me. Departure Information Dispostion Being Evaluated By Hospitalist (Dr. Israel, [facility] [address] Hospitalist) Referrals Ayana Bergeron M.D. (PCP) Patient Instructions [facility] Problem Qualifiers
[2017-12-05] MEDS ORDERED: NITROGLYCERIN 2% OINTMENT 30GM TUBE EXT SCH (21:30)
[2017-12-05 22:10] LABS: INR 0.9 (0.9-1.1); PTT PATIENT 24.2 SECONDS (21.0-31.0)
[2017-12-05] MEDS ORDERED: HEPARIN 25000 UNIT/500 ML D5W ONE (22:20)
[2017-12-05] MEDS ORDERED: HEPARIN SOD 5000 UNIT/0.5 ML CARP ONE (22:21)
--- NOTE | 2017-12-05 22:22 | DIAGNOSTIC IMAGING REPORT ---
(CHEST FOR PE) ANGIO WITH CT DOSE: 393.89 mGy.cm HISTORY: Chest pain dyspnea TECHNIQUE: Multiaxial CT images of the chest were performed following the intravenous administration of contrast to evaluate the pulmonary arteries. Maximal intensity projection images were also obtained. A dose lowering technique was utilized adhering to the principles of ALARA. COMPARISON STUDY: 08/25/2017 FINDINGS: There is a normal caliber thoracic aorta with no evidence for dissection. There is no evidence for pulmonary embolus. No pleural effusions. No pneumothorax. The liver and spleen are unremarkable. No mediastinal or hilar lymphadenopathy. The central airways are patent. The lungs are clear. Small fixed hiatal hernia. IMPRESSION: No evidence for pulmonary embolus. The lungs are clear. Stable basilar pulmonary micronodule change. Hiatal hernia. The above report was generated using voice recognition software. It may contain grammatical, syntax or spelling errors. Electronically signed by: Hamilton Cruz M.D. 12/05/2017 10:21 PM Dictated Date/Time: 12/05/2017 10:19 PM
[2017-12-05] MEDS ORDERED: OPTIRAY 320 IV PRN (22:30)
[2017-12-05] MEDS ORDERED: DILTIAZEM HCL 5 MG/ML 5 ML VIAL IV STA (22:43)
[2017-12-05 22:45] LABS: ALBUMIN 3.5 gm/dl (3.4-5.0); ALKALINE PHOSPHATASE 68 U/L (45-117); ALT/SGPT 30 U/L (12-78); AST/SGOT 30 U/L (15-37); TOTAL PROTEIN 7.4 gm/dl (6.4-8.2)
[2017-12-05] MEDS ORDERED: RANITIDINE HCL 150 MG TAB PO PRN (22:45)
[2017-12-05] MEDS ORDERED: FLUTICASONE PROPIONATE NA SPR 16 GM BTL NAE PRN (22:45)
[2017-12-05] MEDS ORDERED: ALUMINUM/MAGNESIUM/SIMETH (MAALOX MAX) 30 ML UDC PO PRN (22:45)
[2017-12-05] MEDS ORDERED: ONDANSETRON INJ 2 MG/ML 2 ML VIAL IV PRN (22:45)
[2017-12-05] MEDS ORDERED: MoRPHine SULFATE 2 MG/ML CARP IV PRN (22:45)
[2017-12-05] MEDS ORDERED: LEVALBUTEROL/IPRATROPIUM NEB INH PRN (23:00)
[2017-12-06 00:30] VITALS: BP 174/76; PULSE 93; TEMP 36.5; O2SAT 97; Ht 149.9 cm; Wt 53.0 kg
--- NOTE | 2017-12-06 00:49 | HISTORY & PHYSICAL EXAMINATION ---
DATE OF ADMISSION: 12/05/2017 CHIEF COMPLAINT: Chest pain and palpitation. HISTORY OF PRESENT ILLNESS: An 82-year-old female with past medical history significant for diabetes, hypertension, asthma, presents with chest pain and palpitation. The patient today around 7:30, after shower she felt her heart racing and also had some pain in the chest and some shortness of breath, which prompted her to come to the ER. In the ER, she was tachycardic. She was placed on nitro paste and chest pain is resolved now and states she is still having tachycardia. Denies any dizziness. No headaches. No shortness or breath. No sweating. Currently, resting comfortably. Denies any blurred vision. No dizziness. No earache, no runny nose, no sore throat, no difficulty swallowing. No nausea, no vomiting, no abdominal pain . Normal bowel and bladder movements. Appetite is okay. She usually is short of breath because of asthma and climbing steps make her short of breath, but denies any chest pain on exertion. ALLERGIES: BETA BLOCKERS AND ANIMAL DANDER. PAST MEDICAL HISTORY: as above. PAST SURGICAL HISTORY: Denies any surgeries FAMILY HISTORY: Significant for diabetes, heart disease, stroke, hypertension, and lung disease. SOCIAL HISTORY: Never smoked. No alcohol use. No drug use. , lives with her . HOME MEDICATIONS: Lipitor 10 mg p.o. at bedtime, Alphagan 2 drops b.i.d., Tums 1 dose p.o. at bedtime, vitamin D 1 capsule p.o. a.m., hydralazine 50 mg p.o. t.i.d., losartan 100 mg p.o. at bedtime, ranitidine 150 mg p.o. at bedtime p.r.n., Breo Ellipta 1 inhalation p.r.n., Flonase 2 sprays p.r.n., melatonin 10 mg p.o. at bedtime, multivitamin daily. REVIEW OF SYMPTOMS: As per HPI. Rest of review of symptoms negative. PHYSICAL EXAMINATION: GENERAL: Patient is old and frail, not in any distress. VITAL SIGNS: Temperature 36.3, pulse in 110s-120s, respiratory rate 20, blood pressure 180/73, oxygen 97% on room air. HEENT: No pallor, no icterus. Pupils equal, round, reactive to light. NECK: No JVD, no neck masses, no carotid bruit. CARDIOVASCULAR: S1, S2 heard. Tachycardia. No murmurs. RESPIRATORY SYSTEM: Normal AP diameter. No accessory muscle use. No crackles. No wheezing. ABDOMEN: Soft, bowel sounds present. Nontender. No distention. CENTRAL NERVOUS SYSTEM: Cranial nerves II through XII grossly intact. Nonfocal. EXTREMITIES: No edema, no erythema. LABORATORIES: Sodium 141, potassium 4.0, chloride 112, CO2 is 23, BUN 27, creatinine 1.1, serum glucose 265, calcium 8.9, total bilirubin less than 0.01. Troponin I less than 0.015. WBC 9.5, hemoglobin 13.5, hematocrit 41, platelets 309. PT 9.7, INR 0.9, APTT 24.2. D-dimer 550. CT of the chest, no PE, lungs are clear, stable bibasilar pulmonary micronodule change, hiatal hernia. Chest x-ray, no acute process seen. EKG shows sinus tachycardia at a rate of 107, ST depressions in lateral and anterior leads. ASSESSMENT AND PLAN: This is an 82-year-old female who presents with chest pain and tachycardia. 1. Chest pain. EKG shows ST depressions in lateral anterior leads. Troponin is negative. Chest pain resolved with the nitro paste. We will continue the nitro paste, E started on on IV heparin which will be continued for now. Serial cardiac enzymes, echocardiogram. Could not give beta blockers as the patient is allergic secondary to her asthma. Patient received aspirin. We will continue the baby aspirin. Continue her home Lipitor and follow the lipid profile. Consulted cardiology . 2. Sinus tachycardia. CT of the chest is negative for PE. We will follow echocardiogram and give a dose of IV Cardizem and monitor. 3. Hypertension. Continue home medication hydralazine and losartan. Currently elevated. We are giving a dose of Cardizem. We will monitor the blood pressure. Patient is also placed on nitro paste. 4. Diabetes, not on medication. Follow HbA1c levels. 5. Hyperlipidemia, on statin. We will follow fasting lipid profile. 6. Asthma, home inhalers, nebs p.r.n. 7. Deep venous thrombosis prophylaxis, on IV heparin. DISPOSITION: Admit to tele floor. Expect discharge home and follow with family doctor. Level 1 full code. MTDD
[2017-12-06] MEDS: HEPARIN 25,000 UNIT/500ML D5W 500 ML IV SCH ×2 (01:15→06:28)
[2017-12-06 04:19] VITALS: BP 157/72; PULSE 74; TEMP 36.8; O2SAT 95
[2017-12-06] MEDS: NITROGLYCERIN 2% OINTMENT 30GM TUBE EXT SCH ×4 (05:20→21:54)
[2017-12-06 05:22] LABS: PTT PATIENT 99.1 SECONDS (21.0-31.0)
[2017-12-06] MEDS ORDERED: INSULIN ASPART 100 UNITS/ML 3 ML PEN SC SCH (06:00)
[2017-12-06] MEDS ORDERED: NURSING VERBAL MED ORDER ONE ×2 (06:00→12:00)
[2017-12-06] MEDS ORDERED: GLUCAGON FOR INJ 1 MG VIAL SQ PRN (06:15)
[2017-12-06] MEDS ORDERED: GLUCOSE 10 TABS/TUBE PO PRN (06:15)
[2017-12-06] MEDS ORDERED: DEXTROSE 50% 50 ML SYR IV PRN (06:15)
[2017-12-06] MEDS ORDERED: IPRATROPIUM BROMIDE NEB SOLN 0.02% 2.5 ML VIAL INH PRN (06:15)
[2017-12-06] MEDS ORDERED: GLUCOSE 40% GEL 15 GM TUBE PO PRN (06:15)
[2017-12-06] MEDS ORDERED: LEVALBUTEROL 1.25MG/0.5ML NEB INH PRN (06:15)
[2017-12-06 06:43] VITALS: BP 167/57; PULSE 69; TEMP 36.4; O2SAT 95
[2017-12-06] MEDS: CHOLECALCIFEROL 1000 INTER.UNIT TAB PO SCH (09:02)
[2017-12-06] MEDS: ASPIRIN 81 MG ECTAB PO SCH (09:02)
--- NOTE | 2017-12-06 09:02 | Progress Note ---
Internal Med Progress Note Date of Service: Dec 06, 2017. Provider Documentation: SUBJECTIVE: Seen and examined at bedside Feels much better today Denies chest pain, palpitations, dizziness, nausea, SOB, wheezing No other complaints Family at bedside OBJECTIVE: Vital Signs-as noted below Physical Exam: General Appearance:Moderately built and nourished, no apparent distress Head: normocephalic, Atraumatic Eyes: normal inspection, EOMI, PERRL Neck: supple, Trachea midline Respiratory/Chest: Decreased breath sounds, scattered minimal wheezes Cardiovascular: S1, S2, +Tachycardia, No murmur Abdomen/GI:Soft, Non tender, Bowel sounds present Extremities/Musculoskelatal:normal inspection, no edema Neurologic/Psych:AAOX3, grossly no focal neurological deficits Skin: normal color, warm Lab data as noted below. ASSESSMENT & PLAN: Patient is am 82 yr female who presents with chest pain and tachycardia. Chest Pain: R/O ACS Hypertensive Urgency Troponin:< 0.015>>>>>>2.0 Chest pain resolved with NTG Initial EKG shows:ST changes anterolateral leads Repeat EKG: ST changes normalized CTA: No PE. Stable basilar pulmonary micronodule change. Hiatal hernia. TSH:normal ECHO: pending Trend serial cardiac enzymes lipid panel: normal Continue Aspirin, statins Oxygen PRN H/O intolerance to beta blockers One dose of Cardizem given yesterday Cardiology consulted Continue IV Heparin, Nitro paste continue Hydralazine, losartan for HTN Sinus tachycardia: CTA negative for PE ECHO pending HR Better Received a dose of IV Cardizem yesterday HTN: continue hydralazine, losartan Also on Nitro paste monitor DM II: not on medications at home HbA1c levels:pending continue ISS monitor BGs CKD III: Cr at baseline monitor renal function HLP: continue statin H/O Asthma: No signs of exacerbation continue home inhalers DVT Px: on IV Heparin Code Status: Full Code Disposition: Expect to discharge home when stable Vital Signs: Date Time Temp Pulse Resp B/P (MAP) Pulse Ox O2 Delivery O2 Flow Rate FiO2 12/07/17 04:00 Room Air 12/07/17 02:56 37.1 77 18 133/64 (87) 96 12/07/17 00:27 37.1 64 16 118/56 (76) 95 12/07/17 00:00 Room Air 12/06/17 20:00 Room Air 12/06/17 19:09 37.1 72 16 165/54 (91) 94 Room Air 12/06/17 16:00 Room Air 12/06/17 15:16 37.1 75 16 153/61 (91) 96 Room Air 12/06/17 12:00 Room Air 12/06/17 11:35 36.5 67 20 152/64 (93) 96 Room Air 12/06/17 08:00 Room Air Lab Results: Results Past 24 Hours Test 12/06/17 11:18 12/06/17 12:52 12/06/17 16:32 12/06/17 20:29 Range/Units Bedside Glucose 132 99 132 70-90 mg/dl Activated Partial Thromboplast Time 60.9 21.0-31.0 SECONDS Partial Thromboplastin Ratio 2.3 Troponin I 0.943 0-0.045 ng/ml Test 12/07/17 04:23 12/07/17 05:49 Range/Units White Blood Count 7.98 4.8-10.8 K/uL Red Blood Count 3.65 4.2-5.4 M/uL Hemoglobin 11.2 12.0-16.0 g/dL Hematocrit 33.9 37-47 % Mean Corpuscular Volume 92.9 80-100 fL Mean Corpuscular Hemoglobin 30.7 25-34 pg Mean Corpuscular Hemoglobin Concent 33.0 32-36 g/dl RDW Standard Deviation 44.8 36.4-46.3 fL RDW Coefficient of Variation 13.1 11.5-14.5 % Platelet Count 247 130-400 K/uL Mean Platelet Volume 9.4 7.4-10.4 fL Activated Partial Thromboplast Time 24.8 21.0-31.0 SECONDS Partial Thromboplastin Ratio 1.0 Sodium Level 139 136-145 mmol/L Potassium Level 4.4 3.5-5.1 mmol/L Chloride Level 111 98-107 mmol/L Carbon Dioxide Level 25 21-32 mmol/L Anion Gap 3.0 3-11 mmol/L Blood Urea Nitrogen 22 7-18 mg/dl Creatinine 0.92 0.60-1.20 mg/dl Est Creatinine Clear Calc Drug Dose 35.7 ml/min Estimated GFR () 67.7 Estimated GFR (Non- 58.4 BUN/Creatinine Ratio 24.6 10-20 Random Glucose 133 70-99 mg/dl Calcium Level 8.5 8.5-10.1 mg/dl Magnesium Level 2.0 1.8-2.4 mg/dl Bedside Glucose 133 70-90 mg/dl
[2017-12-06] MEDS ORDERED: DC ALL ANTICOAGULANTS ONE (10:30)
--- NOTE | 2017-12-06 10:42 | Cardiology Consultation ---
Cardiology Consultation Date of Service Dec 06, 2017. Cardiology Consultation Indication: Consultation for chest pain. History: This is an 82-year-old female with a history of asthma for many years. She also has a history of diabetes but is on no medications. She has had no prior cardiac history. On occasion but infrequently she will noticed that her heart races for a few seconds but is always spontaneously stopped. Yesterday she felt chest discomfort with her heart racing. It did not stop so she presented to the emergency department. There she was noted to be in a sinus tachycardia on multiple EKGs. She was admitted to the hospital. After admission her cardiac troponins have increased to 2.0. I have been asked to see her in regard to the chest pain and elevated cardiac markers. She is currently pain-free. She has no recent history of activity related chest pain, progressive shortness of breath, dizziness or lightheadedness. Allergies: Beta-blockers and animal dander Past medical history: As outlined above the patient has no previous cardiac history. She has no history of strokes or kidney disease. She does have a history of diabetes but is on no current medications. She has a long-standing history of asthma and takes Breo approximately every 3 days. Social history: The patient is a lifelong non-smoker. She lives with her . Family medical history: Noncontributory General: The patient denies weight change, night sweats, fever, chills. Head: The patient denies headache and prior head trauma. Cardiovascular: Per the history of chief complaint. Pulmonary: The patient denies cough, wheeze, pleurisy, hemoptysis, sputum, and excessive snoring. Gastrointestinal: The patient denies nausea, vomiting, diarrhea, constipation, bloating, hematemesis, hematochezia, and abdominal pain. Skin: The patient denies diaphoresis and rash. Musculoskeletal: The patient denies joint pain, joint swelling, myalgia, back pain, neck pain and prior injuries. Neurological: The patient denies prior stroke and seizures Date Time Temp Pulse Resp B/P (MAP) Pulse Ox O2 Delivery O2 Flow Rate FiO2 12/06/17 06:43 36.4 69 18 167/57 (93) 95 Room Air 12/06/17 04:19 36.8 74 16 157/72 (100) 95 12/06/17 04:00 Room Air 12/06/17 00:30 36.5 93 22 174/76 97 Room Air 12/06/17 00:18 87 24 145/87 97 12/05/17 23:56 94 12/05/17 23:53 89 162/79 97 Room Air 12/05/17 23:01 105 23 166/79 97 Room Air 12/05/17 22:41 106 26 170/77 96 Room Air General Appearance: Alert and Oriented x3. NAD. Head: Normocephalic Atraumatic. Eyes: PERRLA, EOMI, conjunctiva and sclera clear Neck: Supple. No carotid bruits noted. No JVD. No HJD. Respiratory: Breath sounds clear to auscultation bilaterally. No w/r/r. Cardiovascular: Reg rate and rhythm. S1 and S2 noted. No murmurs, rubs, gallops. PMI non displace. Abdomen: Normal bowel sounds, soft nontender. no abdominal bruits. Extremities: No edema, no clubbing or cyanosis. distal pulses 2/4 bilaterally. Neuro: No focal deficits. Psychiatric: Normal affect. Last 24 Hours Test 12/05/17 19:45 12/05/17 21:25 12/05/17 21:45 12/06/17 04:36 White Blood Count 9.56 K/uL Red Blood Count 4.38 M/uL Hemoglobin 13.5 g/dL Hematocrit 41.0 % Mean Corpuscular Volume 93.6 fL Mean Corpuscular Hemoglobin 30.8 pg Mean Corpuscular Hemoglobin Concent 32.9 g/dl Platelet Count 309 K/uL Mean Platelet Volume 9.9 fL Neutrophils (%) (Auto) 45.6 % Lymphocytes (%) (Auto) 39.3 % Monocytes (%) (Auto) 6.5 % Eosinophils (%) (Auto) 6.8 % Basophils (%) (Auto) 1.7 % Neutrophils # (Auto) 4.36 K/uL Lymphocytes # (Auto) 3.76 K/uL Monocytes # (Auto) 0.62 K/uL Eosinophils # (Auto) 0.65 K/uL Basophils # (Auto) 0.16 K/uL RDW Standard Deviation 44.0 fL RDW Coefficient of Variation 12.9 % Immature Granulocyte % (Auto) 0.1 % Immature Granulocyte # (Auto) 0.01 K/uL Sodium Level 141 mmol/L Potassium Level 4.7 mmol/L Chloride Level 112 mmol/L Carbon Dioxide Level 23 mmol/L Anion Gap 6.0 mmol/L Blood Urea Nitrogen 27 mg/dl Creatinine 1.17 mg/dl Est Creatinine Clear Calc Drug Dose 29.0 ml/min Estimated GFR () 50.6 Estimated GFR (Non- 43.7 BUN/Creatinine Ratio 22.8 Random Glucose 265 mg/dl Calcium Level 8.9 mg/dl Troponin I < 0.015 ng/ml 2.060 ng/ml Chemistry Specimen Hemolysis Prothrombin Time 9.7 SECONDS Prothromb Time International Ratio 0.9 Activated Partial Thromboplast Time 24.2 SECONDS 99.1 SECONDS Partial Thromboplastin Ratio 0.9 3.8 D-Dimer 550 ug/L FEU Total Bilirubin 0.2 mg/dl Direct Bilirubin < 0.1 mg/dl Aspartate Amino Transf (AST/SGOT) 30 U/L Alanine Aminotransferase (ALT/SGPT) 30 U/L Alkaline Phosphatase 68 U/L Total Protein 7.4 gm/dl Albumin 3.5 gm/dl Thyroid Stimulating Hormone (TSH) 2.800 uIu/ml Triglycerides Level 90 mg/dl Cholesterol Level 123 mg/dl HDL Cholesterol 48 mg/dl LDL Cholesterol, Calculated 57 mg/dl VLDL Cholesterol, Calculated 18 mg/dl Cholesterol/HDL Ratio 2.6 Test 12/06/17 06:23 Bedside Glucose 126 mg/dl Impression: 1. Non-STEMI 2. Asthma 3. Diabetes Recommendations: The patient states that her discomfort started with tachycardia which is concerning for atrial fibrillation however, none of her EKGs would indicate atrial fibrillation or flutter. I believe they are consistent with sinus tachycardia. The sinus tachycardia may have been the result of her chest pain and anxiety. She has had elevations in her cardiac markers and this could be a non-STEMI. I recommended that she proceed with a cardiac catheterization. I have explained the risk benefit and intent of the procedure to her including the potential for catheter based intervention such as balloon angioplasty or intracoronary stents. The patient expresses understanding and is willing to proceed. Currently she is clinically stable and unless she has a change in the procedure will be completed tomorrow.
[2017-12-06 11:35] VITALS: BP 152/64; PULSE 67; TEMP 36.5; O2SAT 96
[2017-12-06 13:23] LABS: PTT PATIENT 60.9 SECONDS (21.0-31.0)
--- NOTE | 2017-12-06 15:01 | ECHOCARDIOGRAM REPORT ---
*NOTICE TO RECEIVING DEMOCRAT AGENCY This information is strictly Confidential and protected under [place] law. [place] law prohibits you from making any further disclosure of this information unless further disclosure is expressly permitted by the written consent of the person to whom it pertains or is authorized by law. A general authorization for the release of medical or other information is not sufficient for this purpose. Hospital accepts no responsibility if the information is made available to any other person, INCLUDING THE PATIENT. Interpretation Summary * Name: Kerry BEASLEY Study Date: 12/06/2017 09:33 AM BP: 167/57 mmHg * Patient Location: C.2T\S\S229\S\2 HR: 73 * : 1935 (M/d/yyy) Gender: Female Height: 59 in * Age: 82 yrs Ethnicity: CA Weight: 122 lb * Ordering Physician: Didier Israel * Referring Physician: Self, Referred * Performed By: Mary Ellen Chaidez RDCS * * Reason For Study: CHEST PAIN * BSA: 1.5 m2 * -- Conclusions -- * The left ventricle is normal in size. * There is mild concentric left ventricular hypertrophy. * Ejection Fraction = 60-65%. * Grade I diastolic dysfunction, (abnormal relaxation pattern). * The right ventricular systolic function is normal. * The left atrium is mildly dilated. * Right atrial size is normal. * No significant valvular pathology. Procedure Details * A complete two-dimensional transthoracic echocardiogram was performed (2D, M-mode, Doppler and color flow Doppler). Left Ventricle * The left ventricle is normal in size. * There is mild concentric left ventricular hypertrophy. * Ejection Fraction = 60-65%. Right Ventricle * The right ventricle is normal size. * The right ventricular systolic function is normal. Atria * The left atrium is mildly dilated. * Right atrial size is normal. * No ASD detected; PFO is not assessed. Mitral Valve * The mitral valve anatomy is normal. * Significant mitral regurgitation is absent. Tricuspid Valve * The tricuspid valve is not well visualized, but is grossly normal. * No tricuspid regurgitation. Aortic Valve * The aortic valve is trileaflet. * The aortic valve opens well. * There is no significant aortic regurgitation. Pulmonic Valve * The pulmonic valve is not well visualized. * There is no significant pulmonary regurgitation. Pericardium/Pleural * There is no pericardial effusion. Left Ventricular Diastolic Function * Grade I diastolic dysfunction, (abnormal relaxation pattern). MMode 2D Measurements and Calculations IVSd 1.4 cm IVSs 1.8 cm LVIDd 3.9 cm LVIDs 2.5 cm LVPWd 1.4 cm LVPWs 1.9 cm IVS/LVPW 0.98 FS 35.4 % EDV(Teich) 66.9 ml ESV(Teich) 23.2 ml EF(Teich) 65.4 % EDV(cubed) 60.5 ml ESV(cubed) 16.3 ml EF(cubed) 73.0 % % IVS thick 25.1 % % LVPW thick 33.9 % LV mass(C)d 211.9 grams LV mass(C)dI 141.8 grams/m\S\2 LV mass(C)s 191.1 grams LV mass(C)sI 127.9 grams/m\S\2 SV(Teich) 43.8 ml SI(Teich) 29.3 ml/m\S\2 SV(cubed) 44.2 ml SI(cubed) 29.6 ml/m\S\2 Ao root diam 2.9 cm Ao root area 6.6 cm\S\2 LA dimension 3.9 cm LA/Ao 1.3 LVAd ap4 25.9 cm\S\2 LVLd ap4 8.2 cm EDV(MOD-sp4) 67.1 ml EDV(sp4-el) 69.6 ml LVAs ap4 14.8 cm\S\2 LVLs ap4 7.0 cm ESV(MOD-sp4) 27.4 ml ESV(sp4-el) 26.5 ml EF(MOD-sp4) 59.1 % EF(sp4-el) 61.9 % LVAd ap2 21.5 cm\S\2 LVLd ap2 7.2 cm EDV(MOD-sp2) 53.1 ml EDV(sp2-el) 54.9 ml LVAs ap2 12.0 cm\S\2 LVLs ap2 6.2 cm ESV(MOD-sp2) 19.1 ml ESV(sp2-el) 19.6 ml EF(MOD-sp2) 63.9 % EF(sp2-el) 64.2 % LVLd %diff -14.28 % EDV(MOD-bp) 63.4 ml LVLs %diff -12.81 % ESV(MOD-bp) 23.9 ml EF(MOD-bp) 62.3 % SV(MOD-sp4) 39.7 ml SI(MOD-sp4) 26.5 ml/m\S\2 SV(MOD-sp2) 33.9 ml SI(MOD-sp2) 22.7 ml/m\S\2 SV(MOD-bp) 39.5 ml SI(MOD-bp) 26.4 ml/m\S\2 SV(sp4-el) 43.1 ml SI(sp4-el) 28.8 ml/m\S\2 SV(sp2-el) 35.2 ml SI(sp2-el) 23.6 ml/m\S\2 Doppler Measurements and Calculations MV E max paul 93.8 cm/sec MV A max paul 113.8 cm/sec MV E/A 0.82 MV dec time 0.27 sec Ao V2 max 174.6 cm/sec Ao max PG 12.2 mmHg Ao max PG (full) 7.6 mmHg LV V1 max PG 4.6 mmHg LV V1 max 106.7 cm/sec
[2017-12-06 15:16] VITALS: BP 153/61; PULSE 75; TEMP 37.1; O2SAT 96
[2017-12-06] MEDS: INSULIN ASPART 100 UNITS/ML 3 ML PEN SC SCH ×2 (16:15→21:00)
[2017-12-06 19:09] VITALS: BP 165/54; PULSE 72; TEMP 37.1; O2SAT 94
[2017-12-06] MEDS: BRIMONIDINE OPB SCH (20:58)
[2017-12-06] MEDS: ATORVASTATIN 10 MG TAB PO SCH (20:59)
[2017-12-06] MEDS: CALCIUM CARBONATE 500 MG CHEWABLE PO SCH (20:59)
[2017-12-06] MEDS ORDERED: DOCUSATE SODIUM 100 MG CAP PO SCH (21:00)
[2017-12-06] MEDS: LOSARTAN POTASSIUM 50 MG TAB PO SCH (21:03)
[2017-12-06] MEDS ORDERED: ZOLPIDEM TARTRATE 5 MG TAB PO PRN (21:15)
[2017-12-07] VITALS (19 sets, daily range): BP systolic 110–175; BP diastolic 42–77; PULSE 58–101; TEMP 36.6–37.1; O2SAT 94–98
[2017-12-07] MEDS: SODIUM CHLORIDE 0.9% 1000ML 1,000 ML IV SCH ×2 (00:02→17:54)
[2017-12-07] MEDS: NITROGLYCERIN 2% OINTMENT 30GM TUBE EXT SCH ×4 (03:54→22:26)
[2017-12-07 04:50] LABS: HEMATOCRIT 33.9 % (37-47); HEMOGLOBIN 11.2 g/dL (12.0-16.0); MEAN CELL VOLUME 92.9 fL (80-100); MEAN CORPUSCULAR HEMOGLOBIN 30.7 pg (25-34); MEAN PLATELET VOLUME 9.4 fL (7.4-10.4); PLATELET COUNT 247 K/uL (130-400); RED CELL DISTRIBUTION WIDTH CV 13.1 % (11.5-14.5); RED CELL DISTRIBUTION WIDTH SD 44.8 fL (36.4-46.3); WHITE BLOOD COUNT 7.98 K/uL (4.8-10.8)
[2017-12-07 05:00] LABS: PTT PATIENT 24.8 SECONDS (21.0-31.0)
[2017-12-07 05:21] LABS: CALCIUM 8.5 mg/dl (8.5-10.1); CREATININE 0.92 mg/dl (0.60-1.20); POTASSIUM 4.4 mmol/L (3.5-5.1)
[2017-12-07 06:31] LABS: HEMOGLOBIN A1C 6.8 % (4.5-5.6)
[2017-12-07] MEDS: INSULIN ASPART 100 UNITS/ML 3 ML PEN SC SCH ×4 (06:50→20:52)
--- NOTE | 2017-12-07 07:27 | Clinical Documentation Query ---
CLINICAL DOCUMENTATION QUERY 82 yo female admitted with chest pain and tachycardia. GFR range 43.7 to 58.4 from baseline of 70.2 in April 2017. In your clinical opinion is this patient being managed for: ( x ) Chronic kidney disease, stage 3 ( ) Not Agree ( ) Other explanation of clinical findings (Please Explain. If no explanation given, this is considered a no response.) ( ) Unable to determine ( ) Need to Discuss (Please call CDS via extension or [employer]. If no interaction occurs, this is considered a no response.) The medical record reflects the following clinical findings, treatment, and risk factors. Clinical Indicators: As above Treatment: Serial PRPs, IV hydration Risk Factors: Age, NSTEMI, HTN Please clarify and document your clinical opinion in the progress notes and discharge summary. Terms such as "probable", "suspected", "likely", "questionable", "possible", or "still to be ruled out" are acceptable. IF IN AGREEMENT, YOU MUST DOCUMENT ABOVE DIAGNOSTIC STATEMENT IN DAILY PROGRESS NOTES AND DISCHARGE SUMMARY. This document is not part of the patient's record. Thank You, Flower Katz RN [phone]
[2017-12-07] MEDS: CHOLECALCIFEROL 1000 INTER.UNIT TAB PO SCH (08:36)
[2017-12-07] MEDS: BRIMONIDINE OPB SCH ×2 (08:36→20:50)
[2017-12-07] MEDS: ASPIRIN 81 MG ECTAB PO SCH (08:37)
--- NOTE | 2017-12-07 10:28 | Progress Note ---
Internal Med Progress Note Date of Service: Dec 07, 2017. Provider Documentation: SUBJECTIVE: Seen and examined at bedside Doing well this morning No complaints Denies chest pain, palpitations, dizziness, nausea, SOB Family at bedside Planned for cardiac catheterization today OBJECTIVE: Vital Signs-as noted below Physical Exam: General Appearance:Moderately built and nourished, no apparent distress Head: normocephalic, Atraumatic Eyes: normal inspection, EOMI, PERRL Neck: supple, Trachea midline Respiratory/Chest: Decreased breath sounds, CTA Cardiovascular: S1, S2, +Tachycardia, No murmur Abdomen/GI:Soft, Non tender, Bowel sounds present Extremities/Musculoskelatal:normal inspection, no edema Neurologic/Psych:AAOX3, grossly no focal neurological deficits Skin: normal color, warm Lab data as noted below. ASSESSMENT & PLAN: Patient is am 82 yr female who presents with chest pain and tachycardia. Chest Pain: R/O ACS Possible NSTEMI Hypertensive Urgency Troponin:< 0.015>>>>2.0>>>0.943 Chest pain resolved with NTG Initial EKG shows:ST changes anterolateral leads Repeat EKG: ST changes normalized CTA: No PE. Stable basilar pulmonary micronodule change. Hiatal hernia. TSH:normal ECHO: as below lipid panel: normal Continue Aspirin, statins Oxygen PRN H/O intolerance to beta blockers Appreciate Cardiology Input Continue Nitro paste continue Hydralazine, losartan for HTN IV Heparin held for cardiac cath today Sinus tachycardia: CTA negative for PE HR Better Received a dose of IV Cardizem H/O Intolerance to BB HTN: continue hydralazine, losartan Also on Nitro paste monitor DM II: not on medications at home HbA1c levels:6.8 continue ISS monitor BGs CKD III: Cr at baseline monitor renal function HLP: continue statin H/O Asthma: No signs of exacerbation continue home inhalers DVT Px: on IV Heparin SCDs Code Status: Full Code Disposition: Expect to discharge home when stable PROCEDURES; ECHO: * The left ventricle is normal in size. * There is mild concentric left ventricular hypertrophy. * Ejection Fraction = 60-65%. * Grade I diastolic dysfunction, (abnormal relaxation pattern). * The right ventricular systolic function is normal. * The left atrium is mildly dilated. * Right atrial size is normal. * No significant valvular pathology. Vital Signs: Date Time Temp Pulse Resp B/P (MAP) Pulse Ox O2 Delivery O2 Flow Rate FiO2 12/07/17 08:16 36.7 68 18 155/67 (96) 95 Room Air 12/07/17 08:00 Room Air 12/07/17 04:00 Room Air 12/07/17 02:56 37.1 77 18 133/64 (87) 96 12/07/17 00:27 37.1 64 16 118/56 (76) 95 12/07/17 00:00 Room Air 12/06/17 20:00 Room Air 12/06/17 19:09 37.1 72 16 165/54 (91) 94 Room Air 12/06/17 16:00 Room Air 12/06/17 15:16 37.1 75 16 153/61 (91) 96 Room Air 12/06/17 12:00 Room Air 12/06/17 11:35 36.5 67 20 152/64 (93) 96 Room Air Lab Results: Results Past 24 Hours Test 12/06/17 11:18 12/06/17 12:52 12/06/17 16:32 12/06/17 20:29 Range/Units Bedside Glucose 132 99 132 70-90 mg/dl Activated Partial Thromboplast Time 60.9 21.0-31.0 SECONDS Partial Thromboplastin Ratio 2.3 Troponin I 0.943 0-0.045 ng/ml Test 12/07/17 04:23 12/07/17 05:49 Range/Units White Blood Count 7.98 4.8-10.8 K/uL Red Blood Count 3.65 4.2-5.4 M/uL Hemoglobin 11.2 12.0-16.0 g/dL Hematocrit 33.9 37-47 % Mean Corpuscular Volume 92.9 80-100 fL Mean Corpuscular Hemoglobin 30.7 25-34 pg Mean Corpuscular Hemoglobin Concent 33.0 32-36 g/dl RDW Standard Deviation 44.8 36.4-46.3 fL RDW Coefficient of Variation 13.1 11.5-14.5 % Platelet Count 247 130-400 K/uL Mean Platelet Volume 9.4 7.4-10.4 fL Activated Partial Thromboplast Time 24.8 21.0-31.0 SECONDS Partial Thromboplastin Ratio 1.0 Sodium Level 139 136-145 mmol/L Potassium Level 4.4 3.5-5.1 mmol/L Chloride Level 111 98-107 mmol/L Carbon Dioxide Level 25 21-32 mmol/L Anion Gap 3.0 3-11 mmol/L Blood Urea Nitrogen 22 7-18 mg/dl Creatinine 0.92 0.60-1.20 mg/dl Est Creatinine Clear Calc Drug Dose 35.7 ml/min Estimated GFR () 67.7 Estimated GFR (Non- 58.4 BUN/Creatinine Ratio 24.6 10-20 Random Glucose 133 70-99 mg/dl Calcium Level 8.5 8.5-10.1 mg/dl Magnesium Level 2.0 1.8-2.4 mg/dl Bedside Glucose 133 70-90 mg/dl
[2017-12-07] MEDS ORDERED: LIDOCAINE HCL 1% 20 ML VIAL ONE (12:38)
[2017-12-07] MEDS ORDERED: NITROGLYCERIN/D5W 100MCG/ML 20ML SYR ONE (12:39)
[2017-12-07] MEDS ORDERED: HEPARIN SOD (PORCINE) 1000 UNIT/ML 10 ML VIAL ONE (12:53)
[2017-12-07] MEDS ORDERED: NiCARDipine HCL INJ 2.5 MG/ML 10 ML AMP ONE (12:53)
--- NOTE | 2017-12-07 12:53 | Pre Sedation Assessment ---
Pre Sedation Assessment General Date of Sedation: Dec 07, 2017. Vital Signs Past 12 Hours Date Time Temp Pulse Resp B/P (MAP) Pulse Ox O2 Delivery O2 Flow Rate FiO2 12/07/17 12:00 Room Air 12/07/17 11:33 36.9 82 18 156/67 (96) 95 Room Air 12/07/17 08:16 36.7 68 18 155/67 (96) 95 Room Air 12/07/17 08:00 Room Air 12/07/17 04:00 Room Air 12/07/17 02:56 37.1 77 18 133/64 (87) 96 Review Cardiovascular: regular rate, rhythm Lungs: lungs clear Pre-Sedation Airway Assessment Smoking Status: Never Smoker Oral Cavity: Dentures Mallampati Classification: Class II ASA Classification: Class III Procedure Planning Contraindications for Sedation: None Current Medications Reviewed: Yes Notes The planned sedation has been discussed with the patient. Informed Consent was obtained. I have identified the patient, determined the appropriateness of sedation and have assessed the patient immediately prior to the procedure. All medicine(s) and interventions are by my order.
[2017-12-07] MEDS ORDERED: FENTANYL CITRATE INJ 50 MCG/1 ML 2 ML VIAL ONE (12:54)
[2017-12-07] MEDS ORDERED: MIDAZOLAM HCL 1 MG/ML 2ML VIAL ONE (12:54)
--- NOTE | 2017-12-07 14:30 | [facility] Post Operative Brief Note ---
Preliminary Procedure Note Procedure Date Dec 07, 2017. Pre-Procedure Diagnosis Non STEMI AUC Score 8 Post-Procedure Diagnosis Severe CAD (Branch vessel, small ramus intermedius) Procedure(s) Performed Coronary Angiography, Left Heart Cath Binding Nicker Dr. Shivam Akers Coal Equipment Operator(s) Tati Polanco Estimated Blood Loss 25cc Medication(s) Fentanyl (12.5 mcg IV 3), Heparin (25 units IV), Nicardipine (300 mcg intra- arterial after sheath insertion and 2 during the procedure), Versed (1 mg IV 2 ), Lidocaine 1% (Local infiltration) Preliminary Findings Right dominant coronary anatomy with mild to moderate diffuse luminal irregularities Narrow aortic root with upward takeoff left main Left main no disease Left anterior descending type II with large first diagonal with mild luminal irregularities diffusely and 30% narrowing in the diagonal proximal portion Left circumflex gives rise to a moderate caliber high marginal small second marginal and two posterior lateral branches. Moderate caliber high marginal branch with 70-80% narrowing in its midportion Right coronary artery dominant with 3 right ventricular branches, a long posterior descending artery, and a single long posterior ventricular branch. The right coronary artery has moderate irregularities of 20-30% throughout its midportion Left end-diastolic pressure 8 mmHg Recommendations Medical therapy and/or Counseling Specimens None Fluids (cc crystalloids) 128 Procedural Complication(s) None Disposition PCU
[2017-12-07] MEDS ORDERED: SODIUM CHLORIDE 0.9% 1000ML 1,000 ML IV SCH (14:32)
[2017-12-07] MEDS ORDERED: SODIUM CHLORIDE 0.9% 1000ML 250 ML IV PRN (14:32)
[2017-12-07] MEDS ORDERED: ACETAMINOPHEN 325 MG TAB PO PRN (14:45)
[2017-12-07] MEDS ORDERED: NITROGLYCERIN 0.4 MG SL PER TAB CHARGE SL PRN (14:45)
[2017-12-07] MEDS ORDERED: VERAPAMIL HCL 120 MG TABCR PO ONE (14:45)
[2017-12-07] MEDS ORDERED: ATROPINE SULFATE 0.1 MG/ML 5ML SYR IV PRN (14:45)
--- NOTE | 2017-12-07 15:17 | PROGRESS NOTE ---
DATE: 12/07/2017 The patient seen and examined. Chart, medications, telemetry reviewed. SUBJECTIVE: The patient underwent diagnostic cardiac catheterization earlier today by myself for non-ST segment elevation myocardial infarction, peak troponin of 2.06. The patient tolerated catheterization well despite extended procedure due to tortuous subclavian anatomy and root anatomy. Study demonstrated diffuse coronary luminal irregularities with 20% to 30% narrowing, mid right coronary artery with 3 discrete branch vessel disease accounting for symptoms and non-ST elevation myocardial infarction with a 78% narrowing within a modest caliber high marginal branch. The patient post-procedure was doing well without complaint; right radial band in place. PHYSICAL EXAMINATION: VITAL SIGNS: Revealing the heart rate is 64, blood pressure 157/77. NECK: Thin. There is no jugular venous distention. LUNGS: Clear. CARDIOVASCULAR: Regular with a grade 1-2/6 systolic murmurs, no diastolic murmur. ABDOMEN: Soft, nontender. There is no palpable hepatosplenomegaly. There is no hepatojugular reflux. EXTREMITIES: Without cyanosis or clubbing. There are brisk peripheral pulses. DATA: Cardiac catheterization as noted above demonstrated moderate diffuse coronary atherosclerosis with branch vessel obstructive disease. RECOMMENDATIONS: Branch vessel coronary disease with non-ST segment elevation myocardial infarction. Will initiate medical therapies; specifically I will add verapamil 120 mg today with heart rate and blood pressure to be reassessed in a.m. In the interim will continue prehospitalization medications with hydralazine and losartan. Verapamil chosen due to history of beta louisa intolerance and to have ultimate goals and to have blood pressure as well as rate control. The patient is agreeable. Will recommend at least another 24 hours observation getting extended procedure, elevated troponin, initiation of a new antihypertensive and heart rate control.
[2017-12-07] MEDS ORDERED: FLUTICASONE FUROATE-VILANTEROL 30 PUFFS/INHALER INH INH PRN (17:00)
[2017-12-07] MEDS: ACETAMINOPHEN 325 MG TAB PO PRN (17:39)
--- NOTE | 2017-12-07 17:40 | Cardiac Catheterization ---
Procedure Note Procedure Date Dec 07, 2017. Pre-Procedure Diagnosis Non STEMI AUC Score 8 Post-Procedure Diagnosis Severe CAD (Branch vessel, 70-80% obstruction, modest caliber high marginal branch) Procedure(s) Performed Coronary Angiography, Left Heart Cath American Sign Language Interpreter Dr. Shivam Akers Binder Technician(s) Maria Del Rosario Estimated Blood Loss 25cc Medication(s) Fentanyl, Heparin, Nicardipine, Versed, Lidocaine 1% Summary of Findings Right dominant coronary anatomy with mild to moderate diffuse luminal irregularities Narrow aortic root with upward takeoff left main Left main no disease Left anterior descending type II with large first diagonal with mild luminal irregularities diffusely and 30% narrowing in the diagonal proximal portion Left circumflex gives rise to a moderate caliber high marginal small second marginal and two posterior lateral branches. Moderate caliber high marginal branch with 70-80% narrowing in its midportion Right coronary artery dominant with 3 right ventricular branches, a long posterior descending artery, and a single long posterior ventricular branch. The right coronary artery has moderate irregularities of 20-30% throughout its midportion Left end-diastolic pressure 8 mmHg Hemodynamics Rest Ao: 146/52/93 Final Ao: 138/42/79 LV: 150/6/8, LVEDP 8 Recommendations Medical therapy and/or Counseling Specimens None Radiation Exposure (mGy) 2302 Contrast (mls) 170 Fluids (cc crystalloids) 128 Anesthesia Start 1303 End 1410 Procedural Complication(s) None Procedural note: There is tortuosity in the left subclavian, narrow aortic root with upward takeoff left main complicating catheter manipulation and left main engagement. Ultimate success was obtained using an AL 1 Disposition PCU ACC Data Cardiac Status Clinical evaluation leading to the procedure CAD Presntation: Non STEMI Anginal Classification: CCS III Heart Failure: No Cardiogenic Shock w/in 24Hrs: No Cardiac Arrest w/in 24Hrs: No Imaging studies past 6 months: Yes Stress studies past 6 months: No Standard Exercise Stress Test: No Stress Testing w/SPECT MPI: No Cardiac CTA: No Coronary Anatomy Dominant: Right Left Main (% Stenosis): Normal LAD (% Stenosis): Proximal, Mid (Mild irregularities) D1 (% Stenosis): Proximal (Moderate irregularities) Circumflex (% Stenosis): Ostial (20%) OM1 (% Stenosis): Mid (70-80%) L PL1 (% Stenosis): Normal (Mild irregularities) L PL2 (% Stenosis): Mid (Mild irregularities) RCA (% Stenosis): Mid (20-30%) R PDA (% Stenosis): Mid (Mild irregularities) R PL1 (% Stenosis): Mid (Mild irregularities) Diagnostic Status: Urgent Closure Device Percutaneous Entry Location: Radial Closure Device: Radial Band Recommendations: Medical therapy and/or Counseling
[2017-12-07] MEDS: ATORVASTATIN 10 MG TAB PO SCH (20:52)
[2017-12-07] MEDS: CALCIUM CARBONATE 500 MG CHEWABLE PO SCH (20:52)
[2017-12-07] MEDS: LOSARTAN POTASSIUM 50 MG TAB PO SCH (20:52)
[2017-12-07] MEDS: POLYETHYLENE (MIRALAX) 17 GM PACK PO PRN (20:56)
[2017-12-08 00:01] VITALS: O2SAT 94
[2017-12-08] MEDS ORDERED: NURSING VERBAL MED ORDER ONE (02:30)
[2017-12-08 04:00] VITALS: BP 129/59; PULSE 59; TEMP 36.8; O2SAT 95
[2017-12-08] MEDS: NITROGLYCERIN 2% OINTMENT 30GM TUBE EXT SCH ×2 (04:24→10:00)
[2017-12-08 04:50] LABS: HEMATOCRIT 33.4 % (37-47); HEMOGLOBIN 10.9 g/dL (12.0-16.0); MEAN CORPUSCULAR HEMOGLOBIN 30.4 pg (25-34); MEAN CORPUSCULAR HGB CONC 32.6 g/dl (32-36); MEAN PLATELET VOLUME 9.1 fL (7.4-10.4); PLATELET COUNT 216 K/uL (130-400); RED CELL DISTRIBUTION WIDTH CV 12.8 % (11.5-14.5); RED CELL DISTRIBUTION WIDTH SD 43.4 fL (36.4-46.3); WHITE BLOOD COUNT 7.46 K/uL (4.8-10.8)
[2017-12-08 05:05] LABS: PTT PATIENT 23.7 SECONDS (21.0-31.0)
[2017-12-08 05:18] LABS: CALCIUM 8.5 mg/dl (8.5-10.1); CREATININE 0.85 mg/dl (0.60-1.20); POTASSIUM 4.4 mmol/L (3.5-5.1)
[2017-12-08] MEDS: ACETAMINOPHEN 325 MG TAB PO PRN (05:48)
[2017-12-08] MEDS: INSULIN ASPART 100 UNITS/ML 3 ML PEN SC SCH (07:00)
[2017-12-08 07:03] VITALS: BP 169/69; PULSE 55; TEMP 36.9; O2SAT 95
[2017-12-08] MEDS: CHOLECALCIFEROL 1000 INTER.UNIT TAB PO SCH (07:45)
[2017-12-08] MEDS: ASPIRIN 81 MG ECTAB PO SCH (07:45)
[2017-12-08] MEDS: BRIMONIDINE OPB SCH (07:46)
[2017-12-08] MEDS ORDERED: VERAPAMIL HCL 120 MG TABCR PO SCH (09:00)
[2017-12-08] MEDS: POLYETHYLENE (MIRALAX) 17 GM PACK PO PRN (11:00)
[2017-12-08 11:57] VITALS: BP 173/68; PULSE 85; TEMP 36.5; O2SAT 95
[2017-12-08] MEDS ORDERED: ISOSORBIDE MONONITRATE 30 MG TABCR PO ONE (13:45)
--- NOTE | 2017-12-08 13:58 | CARDIOLOGY CONSULTATION ---
DATE OF CONSULTATION: 12/08/2017 The patient seen and examined. Chart, medications, laboratory studies reviewed. SUBJECTIVE: The patient feels relatively well this morning other than constipation issues. Blood pressures had been controlled overnight. They were increased now due to stress and concerns per patient. She denies any chest pains, tachy-palpitations, dizziness or lightheadedness. Heart rates also come under better control. She notes no fevers, chills or sweats. Notes no melena or hematochezia. OBJECTIVE: VITAL SIGNS: Heart rate is 85, blood pressure is 173/68, though currently anxious. Blood pressures overnight were well controlled and heart rates around the 50s and 60s. Telemetry reveals no arrhythmias. HEENT: Normocephalic, atraumatic. NECK: There is no jugular venous distention. No carotid bruits. LUNGS: Clear. CARDIOVASCULAR: Regular with a grade 1/6 systolic murmur, no diastolic murmur. ABDOMEN: Soft, nontender. EXTREMITIES: Without cyanosis or clubbing. There is no peripheral edema. LABORATORY STUDIES: Sodium is 142, potassium is 4.4, chloride is 112, bicarbonate is 25, BUN is 20, creatinine is 0.85. IMPRESSION: An 82-year-old female admitted with shortness of breath, tachycardia, chest discomfort with non-ST segment elevation myocardial infarction likely on the basis of hypertensive urgency and elevated heart rate. Cardiac catheterization demonstrates branch vessel coronary artery disease. Issues are as follows: 1. Branch vessel coronary artery disease. The patient begun on verapamil for blood pressure and heart rate control, given beta louisa intolerance. Atorvastatin will be increased to 20 mg daily, the patient using only 10 mg 3 days per week currently. 2. Hypertension with elevated blood pressure and heart rate. As noted, verapamil will be added to regimen. In addition, isosorbide mononitrate will also be added at 30 mg per day. RECOMMENDATIONS: Follow up cardiology, Nila Chen in 2-3 weeks, primary care physician in 1 week.
--- NOTE | 2017-12-08 14:07 | Progress Note ---
Internal Med Progress Note Date of Service: December 08, 2017. Provider Documentation: SUBJECTIVE: The patient was seen and examined in telemetry unit She was admitted with chest pain and high blood pressure She underwent cardiac catheterization and has been put on verapamil for rate control Denies to have any symptoms as of today and wants to go home Has been ambulating reasonably well OBJECTIVE: Vital Signs-as noted below Exam: General-no apparent distress at rest Eyes-normal ENT-normal Neck-supple Lungs-clear to auscultate bilaterally Heart-Regular, Abdomen-benign, soft, nontender, bowel sounds present Extremities-no edema Neuro-alert, awake and oriented 3 Generally weak but no focal neuro deficit Lab data as noted below. ASSESSMENT & PLAN: Patient is am 82 yr female who presents with chest pain and tachycardia. NSTEMI Presented with Chest Pain and Hypertensive Urgency Troponin:< 0.015>>>>2.0>>>0.943 Chest pain resolved with NTG Initial EKG shows:ST changes anterolateral leads Repeat EKG: ST changes normalized CTA: No PE. Stable basilar pulmonary micronodule change. Hiatal hernia. Continue Aspirin, statins ,Oxygen PRN H/O intolerance to beta blockers,Verapamil started for rate control Appreciate Cardiology Input Continue Nitro paste Continue Hydralazine, losartan for HTN S/P Cardiac Cath::Right dominant coronary anatomy with mild to moderate diffuse luminal irregularities Narrow aortic root with upward takeoff left main,Left main no disease Left anterior descending type II with large first diagonal with mild luminal irregularities diffusely and 30% narrowing in the diagonal proximal portion Left circumflex gives rise to a moderate caliber high marginal small second marginal and two posterior lateral branches. Moderate caliber high marginal branch with 70-80% narrowing in its midportion Right coronary artery dominant with 3 right ventricular branches, a long posterior descending artery, and a single long posterior ventricular branch. The right coronary artery has moderate irregularities of 20-30% throughout its midportion Left end-diastolic pressure 8 mmHg Medical Management contemplated Remains stable Sinus tachycardia: CTA negative for PE HR Better Received a dose of IV Cardizem H/O Intolerance to BB Started on Verapamil for rate control Likely home tomorrow if remains stable HTN: continue hydralazine, losartan Also on Nitro paste Remians on the higher side DM II: not on medications at home HbA1c levels:6.8 continue ISS monitor BGs CKD III: Cr at baseline monitor renal function HLP: continue statin H/O Asthma: No signs of exacerbation continue home inhalers DVT Px: on IV Heparin SCDs Code Status: Full Code Disposition: Expect to discharge home when stable PROCEDURES; ECHO: * The left ventricle is normal in size. * There is mild concentric left ventricular hypertrophy. * Ejection Fraction = 60-65%. * Grade I diastolic dysfunction, (abnormal relaxation pattern). * The right ventricular systolic function is normal. * The left atrium is mildly dilated. * Right atrial size is normal. * No significant valvular pathology. DISPOSITION Likely discharge tomorrow Vital Signs: Date Time Temp Pulse Resp B/P (MAP) Pulse Ox O2 Delivery O2 Flow Rate FiO2 12/08/17 12:00 Room Air 12/08/17 11:57 36.5 85 18 173/68 (103) 95 Room Air 12/08/17 08:00 Room Air 12/08/17 07:03 36.9 55 18 169/69 (102) 95 Room Air 12/08/17 04:00 95 Room Air 12/08/17 04:00 36.8 59 18 129/59 (82) 95 Room Air 59 12/08/17 00:01 94 Room Air 12/07/17 23:43 36.9 64 18 110/42 (64) 94 Room Air 12/07/17 20:18 58 20 143/58 (86) 95 Room Air 58 12/07/17 20:00 95 Room Air 12/07/17 19:18 61 20 145/54 (84) 95 Room Air 61 12/07/17 19:00 36.6 60 16 131/65 (87) 95 Room Air 12/07/17 18:18 58 18 138/55 (82) 94 Room Air 58 12/07/17 17:10 101 20 157/68 (97) 96 Room Air 101 12/07/17 16:10 93 20 175/67 (103) 96 Room Air 93 12/07/17 16:00 96 Room Air 12/07/17 15:40 97 20 171/62 (98) 94 Room Air 12/07/17 15:20 36.6 85 18 140/60 (86) 96 Room Air 12/07/17 15:10 84 18 140/60 (86) 97 Room Air 12/07/17 14:55 65 18 150/68 (95) 97 Room Air 12/07/17 14:40 64 18 155/77 (103) 98 Room Air 12/07/17 14:25 36.6 58 20 165/71 (102) 97 Room Air 12/07/17 14:15 85 16 155/57 (89) 100 Room Air 12/07/17 14:10 75 16 168/74 (105) 100 Room Air Lab Results: Results Past 24 Hours Test 12/07/17 16:29 12/07/17 20:05 12/08/17 04:40 12/08/17 07:16 Range/Units Bedside Glucose 216 97 122 70-90 mg/dl White Blood Count 7.46 4.8-10.8 K/uL Red Blood Count 3.59 4.2-5.4 M/uL Hemoglobin 10.9 12.0-16.0 g/dL Hematocrit 33.4 37-47 % Mean Corpuscular Volume 93.0 80-100 fL Mean Corpuscular Hemoglobin 30.4 25-34 pg Mean Corpuscular Hemoglobin Concent 32.6 32-36 g/dl RDW Standard Deviation 43.4 36.4-46.3 fL RDW Coefficient of Variation 12.8 11.5-14.5 % Platelet Count 216 130-400 K/uL Mean Platelet Volume 9.1 7.4-10.4 fL Activated Partial Thromboplast Time 23.7 21.0-31.0 SECONDS Partial Thromboplastin Ratio 0.9 Sodium Level 142 136-145 mmol/L Potassium Level 4.4 3.5-5.1 mmol/L Chloride Level 112 98-107 mmol/L Carbon Dioxide Level 25 21-32 mmol/L Anion Gap 5.0 3-11 mmol/L Blood Urea Nitrogen 20 7-18 mg/dl Creatinine 0.85 0.60-1.20 mg/dl Est Creatinine Clear Calc Drug Dose 38.9 ml/min Estimated GFR () 74.5 Estimated GFR (Non- 64.3 BUN/Creatinine Ratio 23.3 10-20 Random Glucose 121 70-99 mg/dl Calcium Level 8.5 8.5-10.1 mg/dl Magnesium Level 2.0 1.8-2.4 mg/dl Test 12/08/17 11:21 Range/Units Bedside Glucose 151 70-90 mg/dl
[2017-12-08] MEDS ORDERED: ASPI-320 PO (14:36)
[2017-12-08] MEDS ORDERED: IMDSR30 PO (14:36)
[2017-12-08] MEDS ORDERED: VERA1TAB52 PO (14:36)
[2017-12-08] MEDS ORDERED: LPT20 PO (14:36)
--- NOTE | 2017-12-08 14:39 | Discharge Instructions ---
Discharge Instructions Date of Service December 08, 2017. Admission Reason for Admission: Chest Pain, St Segment Changes On Elctrocardiogram Discharge Discharge Diagnosis / Problem: NSTEMI,HTN ,Tachycardia Discharge Goals Goal(s): Prevent Disease Progression Activity Recommendations Activity Limitations: resume your previous activity (Take it easy for the next week) . Instructions / Follow-Up Instructions / Follow-Up Dr Bergeron in 1 week and Cardiology in 2-3 weeks -will call with [id number] Current Hospital Diet Patient's current hospital diet: AHA Diet (Heart Healthy) Discharge Diet Recommended Diet: AHA Diet (Heart Healthy) Pending Studies Studies pending at discharge: no Laboratory Results Hemoglobin A1c Test 12/06/17 04:36 Range/Units Estimated Average Glucose 148 mg/dl Hemoglobin A1c 6.8 H 4.5-5.6 % Lipid Panel Test 12/06/17 04:36 Range/Units Triglycerides Level 90 0-150 mg/dl Cholesterol Level 123 0-200 mg/dl HDL Cholesterol 48 mg/dl Cholesterol/HDL Ratio 2.6 LDL Cholesterol, Calculated 57 mg/dl Medical Emergencies . Who to Call and When: Medical Emergencies: If at any time you feel your situation is an emergency, please call 911 immediately. . Non-Emergent Contact Non-Emergency issues call your: Primary Care Provider . Past History Medical & Surgical History: (1) NSTEMI (non-ST elevated myocardial infarction) (2) Acute electrocardiogram changes (3) Chest pain (4) Asthma (5) Hypertension . "Provider Documentation" section prepared by Gianni Woods. .
[2017-12-08 15:09] VITALS: BP 193/65; PULSE 84; TEMP 36.6; O2SAT 97
--- NOTE | 2017-12-08 17:43 | Discharge Summary ---
Discharge Summary Date of Service December 08, 2017. Discharge Summary Admission Date: Dec 05, 2017 at 22:49 Discharge Date: December 08, 2017 Discharge Disposition: Home Principal Diagnosis: NSTEMI,HTN ,Tachycardia Secondary Diagnoses/Problems: Please see H&P and Hospital progress note Consultations: Cardiology Medication Reconciliation New Medications: Aspirin (Aspirin EC Low Dose) 81 Mg Ectab 81 MG PO QAM for 30 Days, #1 Atorvastatin (Lipitor) 20 Mg Tab 20 MG PO QAM for 30 Days, #30 TAB Isosorbide Mononitrate (Isosorbide Mononitrate ER) 30 Mg Tabcr 30 MG PO QAM for 30 Days, #30 Verapamil Hcl (Verapamil Hcl Er) 120 Mg Tab 120 MG PO QAM for 30 Days, #30 TAB Continued Medications: Acetaminophen (Tylenol Arthritis Ext Rel) 650 Mg Cplt 2 TAB PO Q8H PRN for Pain, CAP Brimonidine Tartrate (Alphagan P Oph) 0.1 % Janny 2 DROP OPB BID, BTL Calcium Carbonate (Tums) 500 Mg Chew 1 DOSE PO HS Cholecalciferol (Vitamin D3) 2,000 Unit Cap 1 CAP PO QAM Docusate Sodium (Stool Softener) 100 Mg Cap 1 TAB PO Q2D TAKES AT HS Fluticasone Furoate-Vilanterol (Breo Ellipta) 1 Inh Inh 1 PUFF INH Q2D PRN for Shortness of Breath Fluticasone Propionate (Nasal) (Flonase Allergy Relief) 50 Mcg/Act Spr 2 SPRAYS ABAD HS PRN for PRN Glucosamine-Chondroitin (Osteo Bi-Flex Regular Str) 1 Tab Tab 1 TAB PO 3XWK Hydralazine HCl (Hydralazine HCl) 50 Mg Tab 1 TAB PO TID Losartan Potassium (Cozaar) 100 Mg Tab 100 MG PO HS, TAB Melatonin (Melatonin) 10 Mg Cap 10 MG PO PM TAKE AT 2000 Multiple Vitamins W/ Minerals (Centrum Silver 50+Women) 1 Tab Tab 1 TAB PO MWF Multivitamin (Multivitamin) Tab 1 TAB PO 3XWK, TAB TAKES MON, WED AND FRI IN AM Psyllium (Metamucil) Unknown Strength Pow Unknown Dose QAM PT MED LIST READS 28.3% - TAKE 3 TSP DAILY Ranitidine Hcl (Zantac) 150 Mg Tab 1 TAB PO HS PRN for Indigestion Discontinued Medications: Atorvastatin (Lipitor) 10 Mg Tab 10 MG PO HS, TAB Naproxen (Aleve) 220 Mg Tab 220 MG PO UD PRN for Pain, TAB Admission Information HPI (per Admitting provider): DATE OF ADMISSION: 12/05/2017 CHIEF COMPLAINT: Chest pain and palpitation. HISTORY OF PRESENT ILLNESS: An 82-year-old female with past medical history significant for diabetes, hypertension, asthma, presents with chest pain and palpitation. The patient today around 7:30, after shower she felt her heart racing and also had some pain in the chest and some shortness of breath, which prompted her to come to the ER. In the ER, she was tachycardic. She was placed on nitro paste and chest pain is resolved now and states she is still having tachycardia. Denies any dizziness. No headaches. No shortness or breath. No sweating. Currently, resting comfortably. Denies any blurred vision. No dizziness. No earache, no runny nose, no sore throat, no difficulty swallowing. No nausea, no vomiting, no abdominal pain . Normal bowel and bladder movements. Appetite is okay. She usually is short of breath because of asthma and climbing steps make her short of breath, but denies any chest pain on exertion. ALLERGIES: BETA BLOCKERS AND ANIMAL DANDER. PAST MEDICAL HISTORY: as above. PAST SURGICAL HISTORY: Denies any surgeries FAMILY HISTORY: Significant for diabetes, heart disease, stroke, hypertension, and lung disease. SOCIAL HISTORY: Never smoked. No alcohol use. No drug use. , lives with her . HOME MEDICATIONS: Lipitor 10 mg p.o. at bedtime, Alphagan 2 drops b.i.d., Tums 1 dose p.o. at bedtime, vitamin D 1 capsule p.o. a.m., hydralazine 50 mg p.o. t.i.d., losartan 100 mg p.o. at bedtime, ranitidine 150 mg p.o. at bedtime p.r.n., Breo Ellipta 1 inhalation p.r.n., Flonase 2 sprays p.r.n., melatonin 10 mg p.o. at bedtime, multivitamin daily. REVIEW OF SYMPTOMS: As per HPI. Rest of review of symptoms negative. PHYSICAL EXAMINATION: GENERAL: Patient is old and frail, not in any distress. VITAL SIGNS: Temperature 36.3, pulse in 110s-120s, respiratory rate 20, blood pressure 180/73, oxygen 97% on room air. HEENT: No pallor, no icterus. Pupils equal, round, reactive to light. NECK: No JVD, no neck masses, no carotid bruit. CARDIOVASCULAR: S1, S2 heard. Tachycardia. No murmurs. RESPIRATORY SYSTEM: Normal AP diameter. No accessory muscle use. No crackles. No wheezing. ABDOMEN: Soft, bowel sounds present. Nontender. No distention. CENTRAL NERVOUS SYSTEM: Cranial nerves II through XII grossly intact. Nonfocal. EXTREMITIES: No edema, no erythema. LABORATORIES: Sodium 141, potassium 4.0, chloride 112, CO2 is 23, BUN 27, creatinine 1.1, serum glucose 265, calcium 8.9, total bilirubin less than 0.01. Troponin I less than 0.015. WBC 9.5, hemoglobin 13.5, hematocrit 41, platelets 309. PT 9.7, INR 0.9, APTT 24.2. D-dimer 550. CT of the chest, no PE, lungs are clear, stable bibasilar pulmonary micronodule change, hiatal hernia. Chest x-ray, no acute process seen. EKG shows sinus tachycardia at a rate of 107, ST depressions in lateral and anterior leads. ASSESSMENT AND PLAN: This is an 82-year-old female who presents with chest pain and tachycardia. 1. Chest pain. EKG shows ST depressions in lateral anterior leads. Troponin is negative. Chest pain resolved with the nitro paste. We will continue the nitro paste, E started on on IV heparin which will be continued for now. Serial cardiac enzymes, echocardiogram. Could not give beta blockers as the patient is allergic secondary to her asthma. Patient received aspirin. We will continue the baby aspirin. Continue her home Lipitor and follow the lipid profile. Consulted cardiology . 2. Sinus tachycardia. CT of the chest is negative for PE. We will follow echocardiogram and give a dose of IV Cardizem and monitor. 3. Hypertension. Continue home medication hydralazine and losartan. Currently elevated. We are giving a dose of Cardizem. We will monitor the blood pressure. Patient is also placed on nitro paste. 4. Diabetes, not on medication. Follow HbA1c levels. 5. Hyperlipidemia, on statin. We will follow fasting lipid profile. 6. Asthma, home inhalers, nebs p.r.n. 7. Deep venous thrombosis prophylaxis, on IV heparin. DISPOSITION: Admit to tele floor. Expect discharge home and follow with family doctor. Level 1 full code. Hospital Course Patient is am 82 yr female who presents with chest pain and tachycardia. NSTEMI Presented with Chest Pain and Hypertensive Urgency Troponin:< 0.015>>>>2.0>>>0.943 Chest pain resolved with NTG Initial EKG shows:ST changes anterolateral leads Repeat EKG: ST changes normalized CTA: No PE. Stable basilar pulmonary micronodule change. Hiatal hernia. Continue Aspirin, statins ,Oxygen PRN H/O intolerance to beta blockers,Verapamil started for rate control Appreciate Cardiology Input Continue Nitro paste Continue Hydralazine, losartan for HTN S/P Cardiac Cath::Right dominant coronary anatomy with mild to moderate diffuse luminal irregularities Narrow aortic root with upward takeoff left main,Left main no disease Left anterior descending type II with large first diagonal with mild luminal irregularities diffusely and 30% narrowing in the diagonal proximal portion Left circumflex gives rise to a moderate caliber high marginal small second marginal and two posterior lateral branches. Moderate caliber high marginal branch with 70-80% narrowing in its midportion Right coronary artery dominant with 3 right ventricular branches, a long posterior descending artery, and a single long posterior ventricular branch. The right coronary artery has moderate irregularities of 20-30% throughout its midportion Left end-diastolic pressure 8 mmHg Medical Management contemplated Remains stable Sinus tachycardia: CTA negative for PE HR Better Received a dose of IV Cardizem H/O Intolerance to BB Started on Verapamil for rate control Likely home tomorrow if remains stable HTN: continue hydralazine, losartan Also on Nitro paste Remians on the higher side DM II: not on medications at home HbA1c levels:6.8 continue ISS monitor BGs CKD III: Cr at baseline monitor renal function HLP: continue statin H/O Asthma: No signs of exacerbation continue home inhalers DVT Px: on IV Heparin SCDs Code Status: Full Code Disposition: Expect to discharge home when stable PROCEDURES; ECHO: * The left ventricle is normal in size. * There is mild concentric left ventricular hypertrophy. * Ejection Fraction = 60-65%. * Grade I diastolic dysfunction, (abnormal relaxation pattern). * The right ventricular systolic function is normal. * The left atrium is mildly dilated. * Right atrial size is normal. * No significant valvular pathology. DISPOSITION Likely discharge tomorrow Total time spent on discharge = 35 minutes This includes examination of the patient, discharge planning, medication reconciliation, and communication with other providers. Discharge Instructions Date of Service December 08, 2017. Admission Reason for Admission: Chest Pain, St Segment Changes On Elctrocardiogram Discharge Discharge Diagnosis / Problem: NSTEMI,HTN ,Tachycardia Discharge Goals Goal(s): Prevent Disease Progression Activity Recommendations Activity Limitations: resume your previous activity (Take it easy for the next week) . Instructions / Follow-Up Instructions / Follow-Up Dr Bergeron in 1 week and Cardiology in 2-3 weeks -will call with [id number] Current Hospital Diet Patient's current hospital diet: AHA Diet (Heart Healthy) Discharge Diet Recommended Diet: AHA Diet (Heart Healthy) Pending Studies Studies pending at discharge: no Laboratory Results Hemoglobin A1c Test 12/06/17 04:36 Range/Units Estimated Average Glucose 148 mg/dl Hemoglobin A1c 6.8 H 4.5-5.6 % Lipid Panel Test 12/06/17 04:36 Range/Units Triglycerides Level 90 0-150 mg/dl Cholesterol Level 123 0-200 mg/dl HDL Cholesterol 48 mg/dl Cholesterol/HDL Ratio 2.6 LDL Cholesterol, Calculated 57 mg/dl Medical Emergencies . Who to Call and When: Medical Emergencies: If at any time you feel your situation is an emergency, please call 911 immediately. . Non-Emergent Contact Non-Emergency issues call your: Primary Care Provider . Past History Medical & Surgical History: (1) NSTEMI (non-ST elevated myocardial infarction) (2) Acute electrocardiogram changes (3) Chest pain (4) Asthma (5) Hypertension . "Provider Documentation" section prepared by Gianni Woods. . <Electronically signed by Gianni Woods M.D.> Signed: 12/08/17 1439 Signed: The status of this report is Signed * If report status is Draft, the document has not been finalized by the responsible provider. Addendum: 12/08/17 1441 Addendum: Gianni Woods M.D. on 12/08/17 @ 14:41 Discharge Inst - Addendum Addendum Provider: Appointment with Dr Bergeron on 12/16/17 at 2:00 pm. Addendum Notes were documented by provider Gianni Woods. Additional Copies To Ayana Bergeron M.D.
[2017-12-09] MEDS ORDERED: ATORVASTATIN 20 MG TAB PO SCH (09:00)
[2017-12-09] MEDS ORDERED: ISOSORBIDE MONONITRATE 30 MG TABCR PO SCH (09:00)
== END 2017-12-08 15:40 | disposition home or self-care (01) | DRG 282 ==
LOC: C.EDB 19:38 → C.2T 22:49 → ENRESERV 23:10
PROVIDERS: ADMIT Internal Medicine; ATTEND Internal Medicine
PROC: B211YZZ Fluoroscopy of Multiple Coronary Arteries using Other Contrast (ICD-10-PCS; principal; 2017-12-07 12:31)
PROC: 4A023N7 Measurement of Cardiac Sampling and Pressure, Left Heart, Percutaneous Approach (ICD-10-PCS; principal; 2017-12-07 12:31)
DX: I21.4 Non-ST elevation (NSTEMI) myocardial infarction (principal); I16.0 Hypertensive urgency; R00.0 Tachycardia, unspecified; I25.10 Atherosclerotic heart disease of native coronary artery without angina pectoris; I77.1 Stricture of artery; I12.9 Hypertensive chronic kidney disease with stage 1 through stage 4 chronic kidney disease, or unspecified chronic kidney disease; E11.22 Type 2 diabetes mellitus with diabetic chronic kidney disease; N18.3 Chronic kidney disease, stage 3 (moderate); E78.5 Hyperlipidemia, unspecified; J45.909 Unspecified asthma, uncomplicated; Z79.51 Long term (current) use of inhaled steroids; Z79.899 Other long term (current) drug therapy; Z88.8 Allergy status to other drugs, medicaments and biological substances; Z83.3 Family history of diabetes mellitus; Z82.49 Family history of ischemic heart disease and other diseases of the circulatory system; Z82.3 Family history of stroke; Z83.6 Family history of other diseases of the respiratory system

== ENCOUNTER 2019-01-05 07:47 | Inpatient (IN) ==
--- NOTE | 2018-11-15 07:58 | History & Physical Report ---
Date of Service November 15, 2018 Date of Surgery: 12-08-18 Assessment & Plan (1) Osteoarthritis of left knee: Risks and benefits of procedure discussed in detail today, patient would like to proceed with a left total knee replacement at [facility] as scheduled on 12-08-18. will obtain cardiac clearance from Dr Akers prior to surgery as well as obtain PATs at [facility]. Will place on ASA 81mg po bid x 1 month post op, f/u 2 weeks post op for routine post-operative care and x-ray, sooner if having any problems. will make arrangements for possible discharge to [facility] when discharged. At this point in time, has failed conservative measures and would like to proceed with surgical intervention. History of Present Illness Chief Complaint: left knee pain Primary Care Provider: Ayana Bergeron Ms Pabon is a 83 year old female who is here for a follow up of left knee pain, presents for pre-op evaluation prior to a left total knee replacement at [facility] on 12-08-18. She presents with pain, decreased range of motion and stiffness on the left side. She states that the symptoms have been chronic non-traumatic. The symptoms occur constantly with intermittent worsening. Currently the patient states that the symptoms are moderate. The pain is described as aching and sharp. The symptoms occur continuously. She rates her current pain as 5/10. The symptoms are aggravated by ascending stairs, daily activities, descending stairs, first steps while awake, movement, pulling, pushing, repetitive activities, squatting, standing, weather changes, walking and weight bearing. Prior pain medications include Tylenol. she has tried and failed both cortisone injections and viscosupplementation. Allergies Allergy/AdvReac Type Severity Reaction Status Date / Time Beta-Blockers Allergy Mild MAKES Verified 11/11/18 13:56 (Beta-Adrenergic Bloc BREATHING/ASTHMA WORSE-LOW PULSE animal dander Allergy Unknown INCREASES Verified 11/11/18 13:56 HER ASTHMA SYMPTOMS Home Medications Home Medications Medication Instructions Recorded Confirmed Type acetaminophen [Tylenol Arthritis 650 mg PO QID PRN 11/11/18 11/11/18 History Pain] aspirin [Aspir-81] 81 mg PO QAM 11/11/18 11/11/18 History atorvastatin 20 mg PO HS 11/11/18 11/11/18 History brimonidine [Alphagan P] 1 drp OPHTHALMIC (EYE) BID 11/11/18 11/11/18 History calcium carbonate [Tums] 200 mg PO HS 11/11/18 11/11/18 History cholecalciferol (vitamin D3) 2,000 unit PO QAM 11/11/18 11/11/18 History [Vitamin D3] docusate sodium 100 mg PO DAILY PRN 11/11/18 11/11/18 History fluticasone furoate-vilanterol 1 inh INHALATION 3XWK 11/11/18 11/11/18 History [Breo Ellipta] fluticasone propionate [Flonase 2 spray INTRANASAL DAILY PRN 11/11/18 11/11/18 History Allergy Relief] hydralazine 25 mg PO TID 11/11/18 11/11/18 History isosorbide mononitrate 30 mg PO QAM 11/11/18 11/11/18 History losartan 100 mg PO HS 11/11/18 11/11/18 History melatonin 10 mg PO HS 11/11/18 11/11/18 History metformin 500 mg PO QPM 11/11/18 11/11/18 History metoprolol succinate 12.5 mg PO QPM 11/11/18 11/11/18 History psyllium husk [Metamucil] 0.4 g PO BID 11/11/18 11/11/18 History ranitidine HCl 150 mg PO HS PRN 11/11/18 11/11/18 History Past Med/Surg History Medical History Anxiety Asthma Diabetes mellitus, type 2 GERD (gastroesophageal reflux disease) Glaucoma Hiatal hernia Hyperlipidemia Hypertension Lung nodules UNDER OBSERVATION Lyme disease TREATED-DX'D 4-5 YRS AGO Myocardial Infarction 11/2017 "MILD" Osteoarthritis Osteoporosis Pancreatitis HX SOB (shortness of breath) on exertion Surgical History Cancer BASAL CELL NECK REMOVAL History of cardiac cath 11/2017 NO STENTS-[facility] History of esophagogastroduodenoscopy (EGD) WITH DILITATION History of laparotomy ECTOPIC Family History Aunt Family history of diabetes mellitus Social History Preferred Language: Mexican Communication Ability: Effective 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 Beliefs That Will Affect Care: None Current Living Situation: Spouse Other Information That Helps Us Care for You: No Feels Safe at Home: Yes Safety Concerns: Feels Safe At This Time Smoking Status: Never smoker Hx Alcohol Use: No Hx Substance Use: No Review of Systems All systems reviewed & are unremarkable except as noted in HPI & below Constitutional: no fever, no chills and no sweats Respiratory: no cough and no dyspnea Cardiovascular: no chest pain, no dyspnea and no orthopnea Gastrointestinal: no abdominal pain, no nausea and no vomiting Musculoskeletal: as per Subjective / HPI Integumentary: no rash and no lesions Physical Exam Vital Signs (Past 24 Hours): Ht: 4ft 11inches Wt: 55.34kg BP: 158/70 Pulse: 72 Constitutional: WD/WN, vitals as above no acute distress Respiratory: normal respiratory effort, lungs clear to auscultation no respiratory distress and does not use accessory muscles Cardiovascular: RRR, no murmur, no edema Gastrointestinal (Abdomen): normal bowel sounds, soft, nontender, no hepatosplenomegaly Musculoskeletal: Left Knee: she ambulates with a limp and has overall varus alignment on radiographs. There is no erythema or warmth, no ecchymosis noted, mild suprapatellar effusion, diffuse tenderness to her knee, mild crepitation with motion, abby's Negative, posterior drawer negative. positive mcmurrays, negative anterior drawer, knee stable with valgus/varus stress. no extensor lag. pain with active range of motion, AROM 0/3/110, Passive ROM 0/3/115. No pain with active/passive ROM of ankle. Lower Extremity Strength normal. Lower Extremity Neuro-vascular is normal Skin: no rashes, warm and dry Results & Data Diagnostic Findings Left Knee x-ray from October 2018 confirms advanced degenerative changes to the left knee, greatest medial compartments and patellofemoral joint, showing joint space narrowing, osteophyte formation and subchondral sclerosis, overall varus alignment. no acute bony pathology noted.
--- NOTE | 2018-11-15 11:12 | Anesthesiology Consultation ---
Date of Service November 15, 2018 Assessment & Plan (1) Encounter for pre-operative examination: Cardiac clearance 11/09/18: "Patient has no contraindications to proceeding with surgery. Risks of procedure discussed medical issues generally controlled we will optimize therapies prior to proceeding. Patient has had no angina or cardiac decline, exercise capacity is above 5 minutes with general good tolerance. EKG is normal without change. We will change hydralazine to 25 mg 3 times per day in order to smooth fluctuations in blood pressure." CHECK BSG AM DOS Chart Review Chart Review: Acceptable Risk for Surgery and Patient seen in Pre Admission Testing Teaching & Discussion Instructed NPO after midnight before surgery, except medications with 15 cc of water. Medication instructions provided according to the PAT guidelines. History Surgery Operation Date: 01/05/19 11:00 Proposed Procedures p Left Total Knee Arthroplasty - Sher Bejarano DO Height/Weight Height: 4 ft 11.5 in Weight: 54.2 kg Allergies Allergy/AdvReac Type Severity Reaction Status Date / Time Beta-Blockers Allergy Mild MAKES Verified 11/11/18 13:56 (Beta-Adrenergic Bloc BREATHING/ASTHMA WORSE-LOW PULSE animal dander Allergy Unknown INCREASES Verified 11/11/18 13:56 HER ASTHMA SYMPTOMS Medications Home Medications Medication Instructions Recorded Confirmed Last Taken acetaminophen [Tylenol Arthritis 650 mg PO QID PRN 11/11/18 11/11/18 Unknown Pain] aspirin [Aspir-81] 81 mg PO QAM 11/11/18 11/11/18 Unknown atorvastatin 20 mg PO HS 11/11/18 11/11/18 Unknown brimonidine [Alphagan P] 1 drp OPHTHALMIC (EYE) BID 11/11/18 11/11/18 Unknown calcium carbonate [Tums] 200 mg PO HS 11/11/18 11/11/18 Unknown cholecalciferol (vitamin D3) 2,000 unit PO QAM 11/11/18 11/11/18 Unknown [Vitamin D3] docusate sodium 100 mg PO DAILY PRN 11/11/18 11/11/18 Unknown fluticasone furoate-vilanterol 1 inh INHALATION 3XWK 11/11/18 11/11/18 Unknown [Breo Ellipta] fluticasone propionate [Flonase 2 spray INTRANASAL DAILY PRN 11/11/18 11/11/18 Unknown Allergy Relief] hydralazine 25 mg PO TID 11/11/18 11/11/18 Unknown isosorbide mononitrate 30 mg PO QAM 11/11/18 11/11/18 Unknown losartan 100 mg PO HS 11/11/18 11/11/18 Unknown melatonin 10 mg PO HS 11/11/18 11/11/18 Unknown metformin 500 mg PO QPM 11/11/18 11/11/18 Unknown metoprolol succinate 12.5 mg PO QPM 11/11/18 11/11/18 Unknown psyllium husk [Metamucil] 0.4 g PO BID 11/11/18 11/11/18 Unknown ranitidine HCl 150 mg PO HS PRN 11/11/18 11/11/18 Unknown Past Medical History Medical History Anxiety Asthma STABLE WITH BREO 3X/WK. NO RESCUE INHALER USE. CAD (coronary artery disease) Per cardio 11/09/18 "branch vessel coronary artery disease with mild to moderate atherosclerosis in 70-80% narrowing of a small branch of the left circumflex." Cardiac cath 2017, no stents. Diabetes mellitus, type 2 GERD (gastroesophageal reflux disease) Glaucoma Hiatal hernia Hyperlipidemia Hypertension Lung nodules UNDER OBSERVATION Lyme disease TREATED-DX'D 4-5 YRS AGO Myocardial Infarction 11/2017 NSTEMI in the setting of hypertensive urgency, elevated HR. Osteoarthritis Osteoporosis Pancreatitis HX SOB (shortness of breath) on exertion Past Family History Family History Aunt Family history of diabetes mellitus Past Surgical History Surgical History Cancer BASAL CELL NECK REMOVAL History of cardiac cath 11/2017 for NSTEMI NO STENTS-[facility] History of esophagogastroduodenoscopy (EGD) WITH DILITATION History of laparotomy ECTOPIC Past Anesthesia History No Hx of Anesthesia Complications and No Family Hx of Anesthesia Complications History of PONV No Motion Sickness Screening History of Motion Sickness: No Social History Smoking Status: Never smoker Do You Dip or Chew Tobacco: No Hx Alcohol Use: No Hx Substance Use: No Exercise / Class Metabolic Activity III < 4 Walking/Shop/Light housework (Denies CP or increased SOB with ambulation , some +SOB with stairs but she does them anyway.) Pt reports baseline SOB "since childhood" due to asthma. Review of Systems Pt denies any recent chest pain, shortness of breath, palpitations, cough, fever or URI. Physical Exam Vital Signs BP: 137/47 (pt follows with cardiology for labile HTN; reports always high in medical settings but WNL on home checks daily) P: 71bpm SPO2: 97% RA T: 98.3 F R: 18 ENMT Mouth: + dentures (Full upper, partial lower); no chipped teeth and no loose teeth Thyromental Distance: > or= 3.5 Finger Breadths (3.5) Mallampati Class: I Neck normal visual inspection; neck extension not limited Respiratory normal respiratory effort Auscultation: lungs clear to auscultation bilaterally Cardiovascular Rate/Rhythm: regular rate and regular rhythm Heart Sounds: no murmur Vessels: + carotid bruit (+ L side) Testing Electrocardiogram Date: 09/13/18 Findings: + NSR @ (61) Chest X-Ray Date: 11/15/18 Findings: + NAD Small hiatal hernia. Other Testing Carotid Doppler = 11/29/18 No hemodynamically significant stenosis seen within the carotid arteries. Minimal plaque formation bilaterally. Improved study from the prior exam. Laboratory Results 11/15/18 11:51 11/15/18 11:51 Blood Type AB Positive 11/15/18 11:51 Antibody Screen NEGATIVE 11/15/18 11:51 PT 10.3 Seconds (9.0-12.0) 11/15/18 11:51 INR 1.0 (0.9-1.1) 11/15/18 11:51 APTT 23.4 Seconds (21.0-31.0) 11/15/18 11:51 Hemoglobin A1c 6.7 % (4.5-5.6) H 11/15/18 11:51 Urine Color Yellow 11/15/18 11:51 Urine Appearance Clear (Clear) 11/15/18 11:51 Urine pH 5.5 (4.5-7.5) 11/15/18 11:51 Ur Specific [place] 1.012 (1.000-1.030) 11/15/18 11:51 Urine Protein Negative (Negative) 11/15/18 11:51 Urine Glucose (UA) Negative (Negative) 11/15/18 11:51 Urine Ketones Negative (Negative) 11/15/18 11:51 Urine Nitrite Negative (Negative) 11/15/18 11:51 Ur Leukocyte Esterase 2+ (Negative) H 11/15/18 11:51 Urine WBC (Auto) 1-5 /hpf (0-5) 11/15/18 11:51 Urine RBC (Auto) 0-4 /hpf (0-4) 11/15/18 11:51 U Hyaline Cast (Auto) 1-5 /lpf (0-5) 11/15/18 11:51 U Epithel Cells (Auto) >30 /lpf (0-5) H 11/15/18 11:51 Urine Bacteria (Auto) Negative (Negative) 11/15/18 11:51 11/15/18 11:51 Urine Culture - Final Urine,Clean Catch More than three types of organisms present, all high coun ts mixed probable skin marie - No further identifications or sensitivities to follow. *surgeon made aware of elevated glucose.
--- NOTE | 2018-11-15 11:14 | PAT Medication Instructions ---
Medication Instructions Date of Service November 15, 2018 Home Medications acetaminophen [Tylenol Arthritis] 650 mg PO QID PRN aspirin [Aspir-81] 81 mg PO QAM atorvastatin 20 mg PO HS brimonidine [Alphagan P] 1 drp OPHTHALMIC (EYE) BID calcium carbonate [Tums] 200 mg PO HS cholecalciferol (vitamin D3) 2,000 unit PO QAM docusate sodium 100 mg PO DAILY PRN [Breo Ellipta] 1 inh INHALATION 3XWK fluticasone propionate [Flonase] 2 spray INTRANASAL DAILY PRN hydralazine 25 mg PO TID isosorbide mononitrate 30 mg PO QAM losartan 100 mg PO HS melatonin 10 mg PO HS metformin 500 mg PO QPM metoprolol succinate 12.5 mg PO QPM psyllium husk [Metamucil] 0.4 g PO BID ranitidine HCl 150 mg PO HS PRN DO NOT take the morning of surgery cholecalciferol (vitamin D3) 2,000 unit PO QAM docusate sodium 100 mg PO DAILY PRN psyllium husk [Metamucil] 0.4 g PO BID Take morning of surgery With a small sip of water, OTHERWISE NOTHING TO EAT OR DRINK AFTER MIDNIGHT: acetaminophen [Tylenol Arthritis] 650 mg PO QID PRN (if needed, may be taken up to four hours before surgery) aspirin [Aspir-81] 81 mg PO QAM brimonidine [Alphagan P] 1 drp OPHTHALMIC (EYE) BID [Breo Ellipta] 1 inh INHALATION 3XWK fluticasone propionate [Flonase] 2 spray INTRANASAL DAILY PRN (if needed) hydralazine 25 mg PO TID isosorbide mononitrate 30 mg PO QAM Take evening before surgery acetaminophen [Tylenol Arthritis] 650 mg PO QID PRN (if needed) atorvastatin 20 mg PO HS brimonidine [Alphagan P] 1 drp OPHTHALMIC (EYE) BID calcium carbonate [Tums] 200 mg PO HS docusate sodium 100 mg PO DAILY PRN (if needed) [Breo Ellipta] 1 inh INHALATION 3XWK fluticasone propionate [Flonase] 2 spray INTRANASAL DAILY PRN (if needed) hydralazine 25 mg PO TID losartan 100 mg PO HS melatonin 10 mg PO HS metformin 500 mg PO QPM metoprolol succinate 12.5 mg PO QPM psyllium husk [Metamucil] 0.4 g PO BID ranitidine HCl 150 mg PO HS PRN (if needed) Other Notes If you have any questions please call us at [phone] or [phone] or [phone] or [phone]
--- NOTE | 2018-11-15 11:45 | XRay Report ---
XR chest Pre-admission PA/Lat CLINICAL HISTORY: pat preoperative evaluation COMPARISON STUDY: 12/05/2017 FINDINGS: The bones soft tissues and hemidiaphragms are normal. The cardiomediastinal silhouette is n ormal. The lungs are clear. The pulmonary vasculature is normal. IMPRESSION: Negative chest. The above report was generated using voice recognition software. It may contain grammatical, syntax or spelling errors. Electronically signed by: Hamilton Cruz M.D. 11/15/2018 11:44 AM
[2018-11-15 12:26] LABS: Basophils % (auto) 1.4 %; Eosinophils # (auto) 0.79 K/uL (0-0.5); Eosinophils % (auto) 11.2 %; Hematocrit (blood only) 37.1 % (37-47); Hemoglobin 12.3 g/dL (12.0-16.0); Immature Granulocytes # (auto) 0.01 K/uL (0.00-0.02); Immature Granulocytes % (auto) 0.1 %; Lymphocytes % (auto) 28.4 %; Mean Corpuscular Hgb Conc 33.2 g/dL (32-36); Mean Corpuscular Volume 95.1 fL (80-100); Mean Platelet Volume 10.3 fL (7.4-10.4); Monocytes # (auto) 0.35 K/uL (0.11-0.59); Neutrophils # (auto) 3.78 K/uL (1.4-6.5); Neutrophils % (auto) 53.9 %; Platelet Count 258 K/uL (130-400); RDW Coefficient of Variation 12.6 % (11.5-14.5); RDW Standard Deviation 43.2 fL (36.4-46.3); White Blood Count 7.03 K/uL (4.8-10.8)
--- NOTE | 2018-11-15 12:26 | XRay Report ---
XR chest Pre-admission PA/Lat CLINICAL HISTORY: pat preoperative evaluation COMPARISON STUDY: 12/05/2017 FINDINGS: The bones soft tissues and hemidiaphragms are normal. The cardiomediastinal silhouette is n ormal. The lungs are clear. The pulmonary vasculature is normal. Small hiatal hernia IMPRESSION: Negative chest. Small hiatal hernia The above report was generated using voice recognition software. It may contain grammatical, syntax or spelling errors. Electronically signed by: Hamilton Cruz M.D. 11/15/2018 12:25 PM
[2018-11-15 12:36] LABS: Partial Thromboplastin Ratio 0.9; Partial Thromboplastin Time 23.4 Seconds (21.0-31.0); Prothrombin Time 10.3 Seconds (9.0-12.0)
[2018-11-15 12:52] LABS: Appearance Urine Clear (Clear); Bacteria Urine Automated Negative (Negative); Bilirubin Urine Negative (Negative); Blood Urine Negative (Negative); Color Urine Yellow; Epithelial Cell Urine Auto >30 /lpf (0-5); Glucose Urine UA Negative (Negative); Ketones Urine Negative (Negative); Leukocyte Esterase Urine 2+ (Negative); Nitrite Urine Negative (Negative); Protein Urine Negative (Negative); RBC Urine Automated 0-4 /hpf (0-4); Specific Gravity Urine 1.012 (1.000-1.030); Urobilinogen Urine Negative (Negative); pH Urine 5.5 (4.5-7.5)
[2018-11-15 12:53] LABS: Estimated Average Glucose 146 mg/dl; Hemoglobin A1C 6.7 % (4.5-5.6)
[2018-11-15 13:06] LABS: Albumin Level 3.7 gm/dl (3.4-5.0); BUN Creatinine Ratio 27.3 (10-20); Calcium 9.5 mg/dl (8.5-10.1); Creatinine Clr Calc Pharmacy 33.4 ml/min; Est GFR (African American) 61.5; Est GFR (Non-African American) 53.1; Potassium 4.7 mmol/L (3.5-5.1)
--- NOTE | 2019-01-04 08:18 | History & Physical Report ---
Date of Service January 04, 2019 Date of Surgery: 01/05/19 Assessment & Plan (1) Osteoarthritis of left knee: Risks and benefits of procedure discussed in detail today, patient would like to proceed with a left total knee replacement at [facility] as scheduled on 01-05-19. will obtain cardiac clearance from Dr Akers prior to surgery as well as obtain PATs at [facility]. Will place on ASA 81mg po bid x 1 month post op, f/u 2 weeks post op for routine post-operative care and x-ray, sooner if having any problems. will make arrangements for possible discharge to [facility] when discharged. At this point in time, has failed conservative measures and would like to proceed with surgical intervention. History of Present Illness Primary Care Provider: Ayana Bergeron Ms Pabon is a 83 year old female who is here for a follow up of left knee pain, presents for pre-op evaluation prior to a left total knee replacement at [facility] on 01-05-19. She presents with pain, decreased range of motion and stiffness on the left side. She states that the symptoms have been chronic non-traumatic. The symptoms occur constantly with intermittent worsening. Currently the patient states that the symptoms are moderate. The pain is described as aching and sharp. The symptoms occur continuously. She rates her current pain as 5/10. The symptoms are aggravated by ascending stairs, daily activities, descending stairs, first steps while awake, movement, pulling, pushing, repetitive activities, squatting, standing, weather changes, walking and weight bearing. Prior pain medications include Tylenol. she has tried and failed both cortisone injections and viscosupplementation. Allergies Allergy/AdvReac Type Severity Reaction Status Date / Time Beta-Blockers Allergy Mild MAKES Verified 11/11/18 13:56 (Beta-Adrenergic Bloc BREATHING/ASTHMA WORSE-LOW PULSE animal dander Allergy Unknown INCREASES Verified 11/11/18 13:56 HER ASTHMA SYMPTOMS Home Medications Home Medications Medication Instructions Recorded Confirmed Type acetaminophen [Tylenol Arthritis 650 mg PO QID PRN 11/11/18 11/11/18 History Pain] aspirin [Aspir-81] 81 mg PO QAM 11/11/18 11/11/18 History atorvastatin 20 mg PO HS 11/11/18 11/11/18 History brimonidine [Alphagan P] 1 drp OPHTHALMIC (EYE) BID 11/11/18 11/11/18 History calcium carbonate [Tums] 200 mg PO HS 11/11/18 11/11/18 History cholecalciferol (vitamin D3) 2,000 unit PO QAM 11/11/18 11/11/18 History [Vitamin D3] docusate sodium 100 mg PO DAILY PRN 11/11/18 11/11/18 History fluticasone furoate-vilanterol 1 inh INHALATION 3XWK 11/11/18 11/11/18 History [Breo Ellipta] fluticasone propionate [Flonase 2 spray INTRANASAL DAILY PRN 11/11/18 11/11/18 History Allergy Relief] hydralazine 25 mg PO TID 11/11/18 11/11/18 History isosorbide mononitrate 30 mg PO QAM 11/11/18 11/11/18 History losartan 100 mg PO HS 11/11/18 11/11/18 History melatonin 10 mg PO HS 11/11/18 11/11/18 History metformin 500 mg PO QPM 11/11/18 11/11/18 History metoprolol succinate 12.5 mg PO QPM 11/11/18 11/11/18 History psyllium husk [Metamucil] 0.4 g PO BID 11/11/18 11/11/18 History ranitidine HCl 150 mg PO HS PRN 11/11/18 11/11/18 History Past Med/Surg History Medical History Anxiety Asthma STABLE WITH BREO 3X/WK. NO RESCUE INHALER USE. CAD (coronary artery disease) Per cardio 11/09/18 "branch vessel coronary artery disease with mild to moderate atherosclerosis in 70-80% narrowing of a small branch of the left circumflex." Cardiac cath 2017, no stents. Diabetes mellitus, type 2 GERD (gastroesophageal reflux disease) Glaucoma Hiatal hernia Hyperlipidemia Hypertension Lung nodules UNDER OBSERVATION Lyme disease TREATED-DX'D 4-5 YRS AGO Myocardial Infarction 11/2017 NSTEMI in the setting of hypertensive urgency, elevated HR. Osteoarthritis Osteoporosis Pancreatitis HX SOB (shortness of breath) on exertion Surgical History Cancer BASAL CELL NECK REMOVAL History of cardiac cath 11/2017 for NSTEMI NO STENTS-[facility] History of esophagogastroduodenoscopy (EGD) WITH DILITATION History of laparotomy ECTOPIC Family History Aunt Family history of diabetes mellitus Social History Preferred Language: Estonian Communication Ability: Effective Beliefs That Will Affect Care: None Current Living Situation: Spouse Feels Safe at Home: Yes Smoking Status: Never smoker Second Hand Exposure: No Hx Alcohol Use: No Hx Substance Use: No Review of Systems Review of Systems: All systems reviewed & are unremarkable except as noted in HPI & below Constitutional: no fever, no chills and no sweats Respiratory: no cough and no dyspnea Cardiovascular: no chest pain, no dyspnea and no orthopnea Gastrointestinal: no abdominal pain, no nausea and no vomiting Musculoskeletal: as per Subjective / HPI Physical Exam Physical Exam: Wt: 4ft 11 in Ht:54.2kg BP: 158/72 Pulse: 82 Constitutional: WD/WN, vitals as above no acute distress Respiratory: normal respiratory effort, lungs clear to auscultation no respiratory distress and does not use accessory muscles Cardiovascular: RRR, no murmur, no edema Gastrointestinal (Abdomen): normal bowel sounds, soft, nontender, no hepatosplenomegaly Musculoskeletal: Left Knee: she ambulates with a limp and has overall varus alignment on radiographs. There is no erythema or warmth, no ecchymosis noted, mild suprapatellar effusion, diffuse tenderness to her knee, mild crepitation with motion, abby's Negative, posterior drawer negative. positive mcmurrays, negative anterior drawer, knee stable with valgus/varus stress. no extensor lag. pain with active range of motion, AROM 0/3/110, Passive ROM 0/3/115. No pain with active/passive ROM of ankle. Lower Extremity Strength normal. Lower Extremity Neuro-vascular is normal Skin: no rashes, warm and dry Results & Data Diagnostic Findings Left Knee x-ray from October 2018 confirms advanced degenerative changes to the left knee, greatest medial compartments and patellofemoral joint, showing joint space narrowing, osteophyte formation and subchondral sclerosis, overall varus alignment. no acute bony pathology noted.
[~2019-01-05 07:47] MED LIST changes: -ACET1TAB84 PO; +ACETAMINOPHEN 500 MG TAB PO SCH; -ALBUAER INH; -APR50 PO; -ATOR10TA82 PO; -BRIM0.1S OPB; +BUPIVACAINE 0.5 % 5 MG/1 ML PF 10ML VIAL ONE; -CALC500C3 PO; +CEFAZOLIN 1000MG 1,000 MG/7.5 ML SYR IV SCH; -CHOL2000 PO; +CeleBREX 200 MG CAP PO SCH; -DOCU100C PO; +FAMOTIDINE 20 MG TAB PO SCH; -FLUT0.15 NAE; -FLUT1INH INH; +GABAPENTIN 300 MG PO SCH; -LOSA1TAB38 PO; +LR 500ML BOLUS, THEN 15ML/HR IV SCH; -MELA5CAP PO; -MULT-506 PO; -NAPR1TAB9 PO; -PSYL48.59; -RANI150T3 PO; +ROPIVACAINE 0.5% 5 MG/ML 30 ML VIAL ONE; +ROPIVACAINE 0.5% HCL/PF 150 MG, BUPIVACAINE 0.5% MPF 30 ML, EPINEPHrine 30MG/30ML (OR U... INFIL SCH; +TRANEXAMIC ACID 1,000 MG **IV Intra-op IV SCH; +TRANEXAMIC ACID 1,000 MG **IV Pre-op IV SCH; +dexAMETHasone 4 MG TAB PO SCH
[2019-01-05] MEDS ORDERED: MIDAZOLAM HCL 1 MG/ML 2ML VIAL ONE (07:58)
[2019-01-05] MEDS ORDERED: LIDOCAINE HCL 2% 2 ML VIAL/AMP(20MG/ML) INFIL ONE (07:58)
[2019-01-05] MEDS ORDERED: fentaNYL citrate 100 MCG/2 ML VIAL ONE (07:58)
[2019-01-05] MEDS ORDERED: PROPOFOL IV EMULSION 10 MG/ML 20 ML VIAL IV ONE (07:58)
[2019-01-05] MEDS ORDERED: PHENYLEPHRINE 100MCG/ML 5ML SYR ONE (07:58)
[2019-01-05] MEDS ORDERED: ePHEDrine sulfate 50 MG/ML SYR ONE (07:58)
--- NOTE | 2019-01-05 08:31 | History & Physical Bridge Note ---
Date of Service January 05, 2019 History & Physical Bridge Note I have examined the patient, reviewed the History & Physical and in the interval since the performance of the History & Physical I have noted the following changes of clinical significance: no changes noted
[2019-01-05] MEDS ORDERED: POVIDONE-IODINE OP SOLN 30 ML BTL ONE (09:25)
[2019-01-05] MEDS ORDERED: ORTHO JOINT ANESTHETIC ONE (09:25)
[2019-01-05] MEDS ORDERED: BACITRACIN INJ 50,000 UNIT VIAL ONE (09:26)
[2019-01-05] MEDS ORDERED: HYDROmorphone INJ 1 MG/ML SYRINGE IV PRN (09:43)
[2019-01-05] MEDS ORDERED: ePHEDrine sulfate 50 MG/ML AMP IV PRN (09:43)
[2019-01-05] MEDS ORDERED: ATROPINE SULFATE 0.1 MG/ML 10ML SYR IV PRN (09:43)
--- NOTE | 2019-01-05 11:46 | Operative Report ---
Post Operative Report Pre & Post Diagnosis Operation Date: 01/05/19 10:20 Pre-Op Diagnosis: Left Knee Osteoarthritis Post-Op Diagnosis: Left Knee Osteoarthritis Procedure Operation Date: 01/05/19 10:20 Actual Procedures p Left Total Knee Arthroplasty(Left) utilizing [employer] journey to non- block total knee arthroplasty size 4 femur 3 tibia 9 polyethylene 29 oval jez Bejarano DO Surgeon Sher Bejarano DO Coupon Manifest Clerk Hamilton MCMAHON Estimated Blood Loss 5 Findings Consistent with Post-Op Diagnosis Patient presents an 83 white female with severe end-stage tricompartmental degenerative joint disease plasty the above intraoperative findings were noted times surgery patient had subchondral sclerosis marginal osteophytes bone to bone eburnated changes sclerosis subchondral osteophytes and moderate to large effusion and eburnated nonresponsive Specimens Bone and cartilage Drains Medium bore Hemovac Complications none Disposition Accompanied Patient To Recovery: No Disposition: Recovery Room Indications Patient presents as a 81 y1 white female who is in excellent physical condition quite active lady who is failed all attempts at conservative management with her left knee presents for left total knee arthroplasty above intraoperative findings noted times surgery patient is failed attempts of Visco supplementation corticosteroid injections relative rest activity modification having significant quality of life issues due to the pain in her knee she presents for left total knee arthroplasty. Description of Procedure After proper prepping and draping of the left lower extremity anterior midline incision was made over the region of the extensor extensor mechanism after meticulous hemostasis was obtained and maintained in subcutaneous tissues a medial parapatellar incision was made The patella was subluxed lateralward the medial lateral gutter were cleaned from any hypertrophic synovitis and scar tis belinda of the distal femoral block was placed and the distal femoral osteotomy cut was made subsequently the chamfers anterior and posterior osteotomy cuts were made utilizing the 4-in-1 block the tibia was subsequently subluxed anteriorward medial and ateral meniscal remnants were excised in their entirety remnants of the anterior and posterior cruciate ligaments were excised in their entirety excellent exposure of the proximal tibia was obtained the tibial osteotomy guide was placed on the proximal tibial osteotomy cut was made once again the knee was irrigated with copious amounts of sterile saline solution the patella was subsequently everted lateralward thickened scar tissue around the patella was removed the patella was subsequently cut utilizing a freehand technique and was drilled prepared for final preparation and placement of patella socially flexion-extension gaps were checked and the equal and symmetric trials were placed to the appropriate femoral and tibial trials with poly-spacer being placed for equal flexion and extension gaps and full range of motion including extension to 0 and flexion to 140� the trial components after having been taken to recovery range of motion was subsequently removed meticulous hemostasis was obtained and maintained subsequently a knee block injection of joint cocktail including ropivacaine 0.5% 150 mg. Bupivacaine 0.5% epinephrine 1-200,030 mL's toradol 30 mg dexamethasone 4 mg ketamine 10 mg clonidine 100 micrograms normal saline solution 30 mg was infiltrated into the soft tissues of the posterior knee medial lateral gutters and periosteal synovium special attention was paid to protect neurovascular structures at all times subsequently trial components having been removed the knee was irrigated with sterile saline solution. debris was removed the proximal tibia was subsequently prepared and was made ready for the placement of the tibial component tibial component was also cemented and tamped into position the femoral component was subsequently placed and cemented in the position the patellar component was subsequently cemented in position because hemostasis once again obtained and maintained wound having been thoroughly irrigated with debridement and debridement lavage was performed as well as a medial parapatellar incision closed with #1 Vicryl in interrupted fashion subcutaneous was closed with #2 Vicryl skin was closed with skin clips. PA-C was necessary for prepping and drapping as well as wound closure of deep fascia Sub cutaneous tissue and skin and was necessary for the case. A sterile compressive dressing was placed patient was taken to recovery in stable condition of report dictated by Darci I attest to the content of the Intraoperative Record and any orders documented therein. Any exceptions are noted below. I attest to the content of the Intraoperative Record and any orders documented therein. Any exceptions are noted below.
--- NOTE | 2019-01-05 12:58 | Operative Report ---
Post Operative Report Pre & Post Diagnosis Operation Date: 01/05/19 10:20 Pre-Op Diagnosis: Left Knee Osteoarthritis Post-Op Diagnosis: Left Knee Osteoarthritis Procedure Operation Date: 01/05/19 10:20 Actual Procedures p Left Total Knee Arthroplasty(Left) utilizing [employer] Nephew journey to non- block total knee arthroplasty size 4 femur 4 tibia 9 polyethylene 32 oval jez Bejarano DO Surgeon Sher Bejarano DO [employer] Rental Manager Hamilton MCMAHON Estimated Blood Loss 5 Findings Consistent with Post-Op Diagnosis Specimens Bone and cartilage Description of Procedure After proper prepping and draping of the left lower extremity anterior midline incision was made over the region of the extensor extensor mechanism after meticulous hemostasis was obtained and maintained in subcutaneous tissues a medial parapatellar incision was made The patella was subluxed lateralward the medial lateral gutter were cleaned from any hypertrophic synovitis and scar tissue of the distal femoral block was placed and the distal femoral osteotomy cut was made subsequently the chamfers anterior and posterior osteotomy cuts were made utilizing the 4-in-1 block the tibia was subsequently subluxed anteriorward medial and ateral meniscal remnants were excised in their entirety remnants of the anterior and posterior cruciate ligaments were excised in their entirety excellent exposure of the proximal tibia was obtained the tibial osteotomy guide was placed on the proximal tibial osteotomy cut was made once again the knee was irrigated with copious amounts of sterile saline solution the patella was subsequently everted lateralward thickened scar tissue around the patella was removed the patella was subsequently cut utilizing a freehand technique and was drilled prepared for final preparation and placement of patella socially flexion-extension gaps were checked and the equal and symmetric trials were placed to the appropriate femoral and tibial trials with poly-spacer being placed for equal flexion and extension gaps and full range of motion including extension to 0 and flexion to 140� the trial components after having been taken to recovery range of motion was subsequently removed meticulous hemostasis was obtained and maintained subsequently a knee block injection of joint cocktail including ropivacaine 0.5% 150 mg. Bupivacaine 0.5% epinephrine 1-200,030 mL's toradol 30 mg dexamethasone 4 mg ketamine 10 mg clonidine 100 micrograms normal saline solution 30 mg was infiltrated into the soft tissues of the posterior knee medial lateral gutters and periosteal synovium special attention was paid to protect neurovascular structures at all times subsequently trial components having been removed the knee was irrigated with sterile saline solution. debris was removed the proximal tibia was subsequently prepared and was made ready for the placement of the tibial component tibial component was also cemented and tamped into position the femoral component was subsequently placed and cemented in the position the patellar component was subsequently cemented in position because hemostasis once again obtained and maintained wound having been thoroughly irrigated with debridement and debridement lavage was performed as well as a medial parapatellar incision closed with #1 Vicryl in interrupted fashion subcutaneous was closed with #2 Vicryl skin was closed with skin clips. PA-C was necessary for prepping and drapping as well as wound closure of deep fascia Sub cutaneous tissue and skin and was necessary for the case. A sterile compressive dressing was placed patient was taken to recovery in stable condition of report dictated by Darci I attest to the content of the Intraoperative Record and any orders documented therein. Any exceptions are noted below. I attest to the content of the Intraoperative Record and any orders documented therein. Any exceptions are noted below.
--- NOTE | 2019-01-05 13:00 | XRay Report ---
XR knee LT 2V routine CLINICAL HISTORY: Surgical Post Op COMPARISON: Left knee radiographs November 20, 2015. FINDINGS: Alignment of the total left knee arthroplasty is anatomic. There is no fracture or unexpec gisselle radiopaque foreign body. Drains are in place. There is extensive vascular calcification. IMPRESSION: Expected findings following total left knee arthroplasty. Electronically signed by: Carlos Ortega M.D. 01/05/2019 12:59 PM
[2019-01-05] MEDS ORDERED: METOCLOPRAMIDE HCL INJ 5 MG/ML 2 ML VIAL IV PRN (13:38)
[2019-01-05] MEDS ORDERED: HYDROmorphone INJ 0.5 MG/0.5 ML SYR IV PRN (13:38)
[2019-01-05] MEDS ORDERED: MAGNESIUM HYDROXIDE SUSP 30 ML UDC PO PRN (13:38)
[2019-01-05] MEDS ORDERED: ONDANSETRON INJ 2 MG/ML 2 ML VIAL IV PRN (13:38)
[2019-01-05] MEDS ORDERED: NALOXONE HCL 0.4 MG/1 ML VIAL/CARP IV PRN (13:38)
[2019-01-05] MEDS ORDERED: BISACODYL 10 MG SUPP PR PRN (13:38)
[2019-01-05] MEDS ORDERED: SODIUM CHLORIDE 0.9% 1000ML 1,000 ML IV SCH (13:38)
[2019-01-05] MEDS ORDERED: PHARMACY GLYCEMIC MGMT CONSULT PRN (14:14)
--- NOTE | 2019-01-05 14:25 | Pharmacy Report ---
Glycemic Control Consultation - Date of Service January 05, 2019 - Scope Scope: Glycemic Pharmacist consulted by Hamilton Naylor on 01/05/19 for glycemic control and to write orders per [facility] inpatient glycemic control protocol - Objective Weight: 53.5 kg Accuchecks BSG (last 24hrs): 01/05/19 01/05/19 08:11 12:46 POC Glucose 133 H 136 H HbA1c: 6.7 % (4.5-5.6) H 11/15/18 11:51 - Recent Pertinent Medications Outpatient Anti-diabetic Regimen: * Metformin 500mg HS * A1c = 6.7 % 11/15/18 - Assessment & Plan Assessment & Plan: ASSESSMENT: * Ms. Pabon is an 83yo F unknown to the pharmacy glycemic service. She is POD 0 for a L TKA. She is maintained on metformin as an outpt. Her outpt glycemic management is adequate as evidenced by her A1C 6.7%. Goal A1C based on age and co morbidities <7.5% * PMHx consistent with HTN, HLD, Pancreatitis, post-RI. She did receive DXM 8mg PO aleida-operatively. Her appetite is normal. PLAN FOR INPATIENT GLYCEMIC CONTROL: * Holding outpatient oral diabetes medications * Basal insulin * Lantus scale SQ x1 tonight, please see MAR for further details * Bolus insulin * NovoLog per scale ACHS or Q6hrs while NPO * Goal Range: Low 110 mg/dL - High 140 mg/dL * Correction Factor: 30 mg/dL/unit * Nutritional / Prandial insulin per carb ratio of 1 unit per 10 grams CHO consumed * Please note that the plan above was derived based on current level of insulin resistance and hospital stress. These recommendations are appropriate for inpatient admission only. Plan of care upon discharge will need to be reassessed to avoid potential outpatient hypo/hyperglycemia. Thank you.
[2019-01-05] MEDS: INSULIN ASPART 100 UNITS/ML 3 ML PEN SC SCH ×3 (14:28→21:26)
--- NOTE | 2019-01-05 14:40 | Anesthesiology Progress Note ---
Date of Service January 05, 2019 Anesthesia Post Procedure Vital Signs Vital Signs: Temp Pulse Pulse Resp BP BP Pulse Ox 01/05/19 14:25 63 18 148/72 H 96 01/05/19 14:00 60 16 137/53 L 97 01/05/19 13:30 36.4 C L 57 L 16 157/71 H 100 01/05/19 13:10 54 L 19 147/53 H 100 01/05/19 13:00 53 L 19 139/48 L 100 01/05/19 12:50 54 L 22 137/55 L 100 01/05/19 12:40 58 L 16 132/56 L 100 01/05/19 12:30 37 C 54 L 16 130/54 L 100 01/05/19 08:33 36.4 C L 62 18 151/79 H 97 Pain Intensity Left Knee: Pain Intensity: 5 Transfer of Care Handoff Completed per policy Notes Mental Status: alert / awake / arousable Patient Amnestic to Procedure: Yes Nausea / Vomiting: adequately controlled Pain: adequately controlled Airway Patency, RR, SpO2: stable & adequate BP & HR: stable & adequate Hydration State: stable & adequate Anesthetic Complications: no major complications apparent and Pt Satisfied with anesthetic care
[2019-01-05] MEDS: BREO ~ ORDER AWAITING ACTION SCH ×2 (15:46→23:48)
--- NOTE | 2019-01-05 17:14 | Consultation Report ---
DATE OF CONSULTATION: 01/05/2019 CONSULTATION REQUESTED BY: Dr. Bejarano. REASON FOR CONSULTATION: Coronary artery disease and hypertension, postoperative management. HISTORY OF PRESENT ILLNESS: Mrs. Pabon is a very pleasant 83-year-old woman who normally follows with Dr. Akers of our Cardiology practice. She presented to [facility] on 01/05/2019 for an elective left total knee arthroplasty. The patient did receive preop risk assessment with Dr. Akers in November and currently she is resting comfortably postoperatively. She states that she has no pain at all right now and feels great. She denies any cardiac complaints of chest pain, shortness of breath, palpitations, lightheadedness, dizziness or syncope. She particularly notes that her asthmatic lung disease appears to be stable. PAST SURGICAL HISTORY: 1. Cardiac catheterization revealing branch vessel disease with 70%-80% narrowing of a small circumflex. 2. Colonoscopy. MEDICAL ILLNESSES: 1. Coronary artery disease with branch vessel disease. 2. Non-ST segment elevation myocardial infarct in 11/2017 in the setting of hypertensive urgency and elevated heart rate. 3. Class 1-2 angina pectoris. 4. Hyperlipidemia. 5. Longstanding hypertension requiring multiple drug regimens. 6. Asthmatic lung disease. FAMILY HISTORY: Noncontributory. SOCIAL HISTORY: Denies any alcohol, tobacco or recreational drug use. She is and lives at home with her . She is retired. REVIEW OF SYSTEMS: As per HPI. All other review of systems reviewed and negative at this time. ALLERGIES: No known drug allergies. MEDICATIONS AN OUTPATIENT: 1. Atorvastatin 20 mg daily. 2. Hydralazine 25 mg t.i.d. 3. Aspirin 81 mg daily. 4. Imdur 30 mg daily. 5. Losartan 100 mg daily. 6. Metoprolol succinate 12.5 mg daily. 7. Breo Ellipta inhaler. 8. Flonase. 9. Metformin daily. PHYSICAL EXAMINATION: VITAL SIGNS: Temperature 36.7, pulse 61, respiratory rate 12, blood pressure 143/56. GENERAL: Awake, alert, oriented x3, in no acute distress. HEENT: Normocephalic, atraumatic. Pupils equal, round, and reactive to light and accommodation. Extraocular muscles intact. Anicteric sclerae. Moist mucous membranes. NECK: No JVD, no bruit. CARDIOVASCULAR: Regular. Positive S4. Normal S1 and S2. No S3. A 2/6 mid to late systolic ejection murmur greatest heard at the right sternal border second intercostal space without radiation. No rubs. PULMONARY: Clear to auscultation bilaterally. No rales, rhonchi or wheezing. ABDOMEN: Bowel sounds x4, soft. No rebound, guarding, tenderness. No organomegaly. EXTREMITIES: No clubbing, cyanosis or edema. +2 pedal pulses bilaterally. SKIN: Warm and dry. IMPRESSION: 1. Postop day number 0 for left total knee arthroplasty. 2. Branch vessel coronary artery disease with chronic stable angina, controlled. 3. Difficult to control hypertension, currently controlled. 4. Asthmatic lung disease. RECOMMENDATIONS: It was my pleasure to see the patient in consultation today. From a cardiac standpoint, she is doing very well and very pleased to see her blood pressures remained well controlled postoperatively. So at this point, she will be continued on her outpatient regimen of aspirin, losartan, metoprolol, Imdur and hydralazine and we will follow her blood pressures while she is recovering from surgery. KATHY
[2019-01-05] MEDS: CEFAZOLIN 1000MG 1,000 MG/7.5 ML SYR IV SCH (18:18)
[2019-01-05] MEDS ORDERED: INSULIN GLARGINE SOLOSTAR 100 UNITS/ML 3 ML PEN SC ONE (21:00)
[2019-01-05] MEDS: LOSARTAN POTASSIUM 50 MG TAB PO SCH (21:22)
[2019-01-05] MEDS: METOPROLOL SUCC 25MG EXT REL TAB PO SCH (21:22)
[2019-01-05] MEDS: SENNA 8.6 MG TAB PO SCH (21:22)
[2019-01-05] MEDS: ATORVASTATIN 20 MG TAB PO SCH (21:23)
[2019-01-05] MEDS: ASPIRIN 81 MG ECTAB PO SCH (21:23)
[2019-01-05] MEDS: DOCUSATE SODIUM 100 MG CAP PO SCH (21:23)
[2019-01-05] MEDS: PSYLLIUM 58.6% POWDER PACKET PO SCH (21:24)
[2019-01-05] MEDS: CALCIUM CARBONATE 500 MG CHEWABLE TAB PO SCH (22:16)
[2019-01-05] MEDS: FLUTICASONE PROPIONATE NA SPR 16 GM BTL NAE PRN (22:51)
[2019-01-06] MEDS: CEFAZOLIN 1000MG 1,000 MG/7.5 ML SYR IV SCH (03:10)
[2019-01-06 05:43] LABS: Hematocrit (blood only) 32.3 % (37-47); Mean Corpuscular Hgb Conc 34.1 g/dL (32-36); Mean Corpuscular Volume 93.1 fL (80-100); Mean Platelet Volume 9.8 fL (7.4-10.4); Platelet Count 236 K/uL (130-400); RDW Coefficient of Variation 12.5 % (11.5-14.5); RDW Standard Deviation 42.2 fL (36.4-46.3); Red Blood Count 3.47 M/uL (4.2-5.4); White Blood Count 16.08 K/uL (4.8-10.8)
[2019-01-06] MEDS: HYDROCODONE/ACETAMOPHEN 5/325MG TAB PO PRN ×4 (05:55→20:52)
[2019-01-06 06:19] LABS: BUN Creatinine Ratio 32.4 (10-20); Calcium 8.4 mg/dl (8.5-10.1); Creatinine Clr Calc Pharmacy 27.9 ml/min; Est GFR (African American) 49.7; Est GFR (Non-African American) 42.9
[2019-01-06] MEDS ORDERED: PHARMACY GLYCEMIC MGMT CONSULT STA (08:01)
--- NOTE | 2019-01-06 08:45 | Orthopedic Progress Note ---
Date of Service January 06, 2019 Assessment & Plan (1) Osteoarthritis of left knee: Postop day 1 status post left total knee arthroplasty. PT OT protocols today. Weightbearing as tolerated. DVT prophylaxis with SCDs, VIOLETTA petee, ASA twice daily Pain management with Colona, hydromorphone. DC planning-planning for home health services. Subjective Postop day 1 status post left total knee arthroplasty. Patient is sitting up in bed and is awake and alert. Her main complaints are worrying about her blood pressure and blood sugars fluctuating. We discussed that this would happen regularly after the surgery and was essentially because of the surgery and other medications she is receiving. Cardiology has been consulted and she was seen by Dr. Sullivan last night. They will adjust her blood pressure medications as needed. She is having some pain in the knee this morning. Denies calf pain. Denies shortness of breath, chest pain, lightheadedness. Physical Exam Physical Exam: Dressings are clean, dry, and intact. Calves are soft nontender. She has a slight foot drop this morning with weakness with dorsiflexion of the great toe and foot. She has good plantar flexion. Hemovac is present and functioning. Results & Data Vital Signs (Past 12 Hours) Vital Signs Temp Pulse Resp BP Pulse Ox 01/06/19 07:21 36.5 C 60 18 168/78 H 97 01/06/19 04:00 36.6 C 62 18 154/65 H 98 01/05/19 23:22 36.7 C 58 L 16 131/57 L 94
[2019-01-06] MEDS: PSYLLIUM 58.6% POWDER PACKET PO SCH ×2 (09:13→19:28)
[2019-01-06] MEDS: MULTIVITAMIN TAB PO SCH (09:13)
[2019-01-06] MEDS: DOCUSATE SODIUM 100 MG CAP PO SCH ×2 (09:13→20:53)
[2019-01-06] MEDS: CHOLECALCIFEROL 1,000 UNITS TAB PO SCH (09:13)
[2019-01-06] MEDS: ISOSORBIDE MONO EXTENDED REL 30 MG TABCR PO SCH (09:13)
[2019-01-06] MEDS: ASPIRIN 81 MG ECTAB PO SCH ×2 (09:13→20:52)
[2019-01-06] MEDS: BREO ~ ORDER AWAITING ACTION SCH ×2 (09:14→16:24)
[2019-01-06] MEDS: INSULIN ASPART 100 UNITS/ML 3 ML PEN SC SCH ×4 (09:18→21:36)
--- NOTE | 2019-01-06 09:44 | Cardiology Progress Note ---
Date of Service January 06, 2019 Assessment & Plan (1) Hypertension: Borderline elevated this AM, prior to meds. Acceptable with post op pain. Will monitor. Continue home medications for now. Recheck BP 1-2 hours after AM medications (2) Osteoarthritis of left knee: POD 1. Ortho following PT and pain management (3) CAD (coronary artery disease): Stable. No anginal symptoms Continue home medications. ASA resumed. Supervising Physician Co-Signing Physician Notes Patient seen and examined with Lidia Serna PA-C. Agree with findings and assessment as above. Some discomfort today and BP understandable increased. Will hold off med changes at this point. Cont pain control. Subjective Patient reports increased knee pain this AM. She is worried her BP was higher this AM. Reading 160/80's, prior to meds. No headaches or vision changes. No chest pain or SOB. No orhtopnea, PND or cough. No dizziness. Review of Systems Review of Systems: All systems reviewed & are unremarkable except as noted in HPI & below Physical Exam Constitutional: WD/WN, vitals as above well nourished; no acute distress Eyes: PERRL, conjunctivae normal, anicteric sclerae Neck: normal visual inspection Respiratory: normal respiratory effort, lungs clear to auscultation Cardiovascular: RRR, no murmur, no edema Gastrointestinal (Abdomen): normal bowel sounds, soft, nontender, no hepatosplenomegaly Psychiatric: Orientation: alert and oriented x 3 Results & Data Vital Signs (Past 12 Hours) Vital Signs Temp Pulse Resp BP Pulse Ox 01/06/19 07:21 36.5 C 60 18 168/78 H 97 01/06/19 04:00 36.6 C 62 18 154/65 H 98 01/05/19 23:22 36.7 C 58 L 16 131/57 L 94 Laboratory Results 01/06/19 01/06/19 01/06/19 Range/Units 08:21 05:26 05:26 WBC 16.08 H (4.8-10.8) K/uL RBC 3.47 L (4.2-5.4) M/uL Hgb 11.0 L (12.0-16.0) g/dL Hct 32.3 L (37-47) % MCV 93.1 (80-100) fL MCH 31.7 (25-34) pg MCHC 34.1 (32-36) g/dL RDW Std Deviation 42.2 (36.4-46.3) fL RDW Coeff of Don 12.5 (11.5-14.5) % Plt Count 236 (130-400) K/uL MPV 9.8 (7.4-10.4) fL Sodium 141 (136-145) mmol/L Potassium 5.0 (3.5-5.1) mmol/L Chloride 112 H (98-107) mmol/L Carbon Dioxide 25 (21-32) mmol/L Anion Gap 4.0 (3-11) BUN 38 H (7-18) mg/dl Creatinine 1.18 (0.6-1.2) mg/dl Est Cr Clr Drug Dosing 27.9 ml/min Est GFR ( Amer) 49.7 Est GFR (Non-Af Amer) 42.9 BUN/Creatinine Ratio 32.4 H (10-20) Glucose 146 H (70-99) mg/dl POC Glucose 100 H (70-99) Calcium 8.4 L (8.5-10.1) mg/dl 01/05/19 01/05/19 01/05/19 Range/Units 20:23 17:04 12:46 WBC (4.8-10.8) K/uL RBC (4.2-5.4) M/uL Hgb (12.0-16.0) g/dL Hct (37-47) % MCV (80-100) fL MCH (25-34) pg MCHC (32-36) g/dL RDW Std Deviation (36.4-46.3) fL RDW Coeff of Don (11.5-14.5) % Plt Count (130-400) K/uL MPV (7.4-10.4) fL Sodium (136-145) mmol/L Potassium (3.5-5.1) mmol/L Chloride (98-107) mmol/L Carbon Dioxide (21-32) mmol/L Anion Gap (3-11) BUN (7-18) mg/dl Creatinine (0.6-1.2) mg/dl Est Cr Clr Drug Dosing ml/min Est GFR ( Amer) Est GFR (Non-Af Amer) BUN/Creatinine Ratio (10-20) Glucose (70-99) mg/dl POC Glucose 279 H 212 H 136 H (70-99) Calcium (8.5-10.1) mg/dl
--- NOTE | 2019-01-06 10:21 | Anesthesiology Progress Note ---
Date of Service January 06, 2019 Anesthesia Post Procedure Vital Signs Vital Signs: Temp Pulse Pulse Resp BP Pulse Ox 01/06/19 07:21 36.5 C 60 18 168/78 H 97 01/06/19 04:00 36.6 C 62 18 154/65 H 98 01/05/19 23:22 36.7 C 58 L 16 131/57 L 94 01/05/19 19:22 36.4 C L 90 16 153/69 H 96 01/05/19 16:57 36.3 C L 61 16 161/64 H 96 01/05/19 15:35 36.7 C 61 15 143/56 H 96 01/05/19 14:25 63 18 148/72 H 96 01/05/19 14:00 60 16 137/53 L 97 01/05/19 13:30 36.4 C L 57 L 16 157/71 H 100 01/05/19 13:10 54 L 19 147/53 H 100 01/05/19 13:00 53 L 19 139/48 L 100 01/05/19 12:50 54 L 22 137/55 L 100 01/05/19 12:40 58 L 16 132/56 L 100 01/05/19 12:30 37 C 54 L 16 130/54 L 100 Pain Intensity Left Knee: Pain Intensity: 5 Notes Mental Status: alert / awake / arousable and participated in evaluation Patient Amnestic to Procedure: Yes Nausea / Vomiting: adequately controlled Pain: adequately controlled Airway Patency, RR, SpO2: stable & adequate BP & HR: stable & adequate Hydration State: stable & adequate Neuraxial Anesthesia: was administered and sensory block resolved Anesthetic Complications: no major complications apparent
[2019-01-06] MEDS: FLUTICASONE PROPIONATE NA SPR 16 GM BTL NAE PRN (20:52)
[2019-01-06] MEDS: CALCIUM CARBONATE 500 MG CHEWABLE TAB PO SCH (20:52)
[2019-01-06] MEDS: METOPROLOL SUCC 25MG EXT REL TAB PO SCH (20:52)
[2019-01-06] MEDS: SENNA 8.6 MG TAB PO SCH (20:52)
[2019-01-06] MEDS: LOSARTAN POTASSIUM 50 MG TAB PO SCH (20:53)
[2019-01-06] MEDS: ATORVASTATIN 20 MG TAB PO SCH (20:57)
[2019-01-07] MEDS: BREO ~ ORDER AWAITING ACTION SCH ×2 (01:13→08:43)
[2019-01-07] MEDS: HYDROCODONE/ACETAMOPHEN 5/325MG TAB PO PRN ×3 (03:00→10:35)
--- NOTE | 2019-01-07 07:23 | Orthopedic Progress Note ---
Date of Service January 07, 2019 Assessment & Plan (1) Osteoarthritis of left knee: Postop day 2 status post left total knee arthroplasty. PT OT protocols today. Weightbearing as tolerated. DVT prophylaxis with SCDs, VIOLETTA hose, ASA twice daily Pain management with [place], hydromorphone. DC planning-planning for home health services. Subjective Postop day 2 status post left total knee arthroplasty. Patient is sitting up in bed and is awake and alert. denies CP SOB, denies fever chills. pain currently well controlled. Physical Exam Physical Exam: Vital Signs Temp Pulse Resp BP Pulse Ox 01/07/19 07:13 36.9 C 51 L 18 162/61 H 96 01/07/19 03:04 50 L 01/06/19 23:40 36.8 C 49 L 18 119/62 97 01/06/19 20:54 60 148/76 H 01/06/19 15:48 36.8 C 54 L 18 139/57 L 97 01/06/19 13:44 55 L 16 150/66 H Intake and Output 01/06/19 01/07/19 01/07/19 22:59 06:59 14:59 Intake Total 200 / 1215 Output Total 125 / 225 Balance 75 / 990 Intake: Oral 200 / 1215 Output: Drain Output 125 / 225 Left Knee Hemo vac 125 / 225 Other: # Unmeasured Voi ds 2 1 Musculoskeletal: NVDI, calf SNT, negative renny sign. DP palpable, able to wiggle toes/ankle movement without difficulty. CAMELIA dressing clean dry and intact. expected post-operative bruising noted. Results & Data Vital Signs (Past 12 Hours) Vital Signs Temp Pulse Resp BP Pulse Ox 01/07/19 07:13 36.9 C 51 L 18 162/61 H 96 01/07/19 03:04 50 L 01/06/19 23:40 36.8 C 49 L 18 119/62 97 01/06/19 20:54 60 148/76 H Laboratory Results PT 10.3 Seconds (9.0-12.0) 11/15/18 11:51 APTT 23.4 Seconds (21.0-31.0) 11/15/18 11:51 Laboratory Results WBC 16.08 K/uL (4.8-10.8) H 01/06/19 05:26 RBC 3.47 M/uL (4.2-5.4) L 01/06/19 05:26 Hgb 11.0 g/dL (12.0-16.0) L 01/06/19 05:26 Hct 32.3 % (37-47) L 01/06/19 05:26 MCV 93.1 fL (80-100) 01/06/19 05:26 MCH 31.7 pg (25-34) 01/06/19 05:26 MCHC 34.1 g/dL (32-36) 01/06/19 05:26 RDW Std Deviation 42.2 fL (36.4-46.3) 01/06/19 05:26 RDW Coeff of Don 12.5 % (11.5-14.5) 01/06/19 05:26 Plt Count 236 K/uL (130-400) 01/06/19 05:26 MPV 9.8 fL (7.4-10.4) 01/06/19 05:26 Immature Gran % (Auto) 0.1 % 11/15/18 11:51 Neut % (Auto) 53.9 % 11/15/18 11:51 Lymph % (Auto) 28.4 % 11/15/18 11:51 [place] % (Auto) 5.0 % 11/15/18 11:51 Eos % (Auto) 11.2 % 11/15/18 11:51 Baso % (Auto) 1.4 % 11/15/18 11:51 Immature Gran # (Auto) 0.01 K/uL (0.00-0.02) 11/15/18 11:51 Neut # (Auto) 3.78 K/uL (1.4-6.5) 11/15/18 11:51 Lymph # (Auto) 2.00 K/uL (1.2-3.4) 11/15/18 11:51 [place] # (Auto) 0.35 K/uL (0.11-0.59) 11/15/18 11:51 Eos # (Auto) 0.79 K/uL (0-0.5) H 11/15/18 11:51 Baso # (Auto) 0.10 K/uL (0-0.2) 11/15/18 11:51 PT 10.3 Seconds (9.0-12.0) 11/15/18 11:51 INR 1.0 (0.9-1.1) 11/15/18 11:51 APTT 23.4 Seconds (21.0-31.0) 11/15/18 11:51 PTT Ratio 0.9 11/15/18 11:51 Sodium 141 mmol/L (136-145) 01/06/19 05:26 Potassium 5.0 mmol/L (3.5-5.1) 01/06/19 05:26 Chloride 112 mmol/L (98-107) H 01/06/19 05:26 Carbon Dioxide 25 mmol/L (21-32) 01/06/19 05:26 4.0 (3-11) 01/06/19 05:26 BUN 38 mg/dl (7-18) H 01/06/19 05:26 1.18 mg/dl (0.6-1.2) 01/06/19 05:26 Est Cr Clr Drug Dosing 27.9 ml/min 01/06/19 05:26 Est GFR ( Amer) 49.7 01/06/19 05:26 Est GFR (Non-Af Amer) 42.9 01/06/19 05:26 32.4 (10-20) H 01/06/19 05:26 Glucose 146 mg/dl (70-99) H 01/06/19 05:26 POC Glucose 108 (70-99) H 01/06/19 21:30 Estimat Average Glucose 146 mg/dl 11/15/18 11:51 6.7 % (4.5-5.6) H 11/15/18 11:51 Calcium 8.4 mg/dl (8.5-10.1) L 01/06/19 05:26 3.7 gm/dl (3.4-5.0) 11/15/18 11:51 Yellow 11/15/18 11:51 Clear (Clear) 11/15/18 11:51 5.5 (4.5-7.5) 11/15/18 11:51 Ur Specific [place] 1.012 (1.000-1.030) 11/15/18 11:51 Negative (Negative) 11/15/18 11:51 Negative (Negative) 11/15/18 11:51 Negative (Negative) 11/15/18 11:51 Negative (Negative) 11/15/18 11:51 Negative (Negative) 11/15/18 11:51 Negative (Negative) 11/15/18 11:51 Negative (Negative) 11/15/18 11:51 Ur Leukocyte Esterase 2+ (Negative) H 11/15/18 11:51 1-5 /hpf (0-5) 11/15/18 11:51 0-4 /hpf (0-4) 11/15/18 11:51 U Hyaline Cast (Auto) 1-5 /lpf (0-5) 11/15/18 11:51 U Epithel Cells (Auto) >30 /lpf (0-5) H 11/15/18 11:51 Negative (Negative) 11/15/18 11:51 Blood Type AB Positive 11/15/18 11:51 Antibody Screen NEGATIVE 11/15/18 11:51 Diagnostic Findings XR knee LT 2V routine CLINICAL HISTORY: Surgical Post Op COMPARISON: Left knee radiographs November 20, 2015. FINDINGS: Alignment of the total left knee arthroplasty is anatomic. There is no fracture or unexpected radiopaque foreign body. Drains are in place. There is extensive vascular calcification. IMPRESSION: Expected findings following total left knee arthroplasty.
[2019-01-07] MEDS: DOCUSATE SODIUM 100 MG CAP PO SCH (08:43)
[2019-01-07] MEDS: PSYLLIUM 58.6% POWDER PACKET PO SCH (08:44)
[2019-01-07] MEDS: CHOLECALCIFEROL 1,000 UNITS TAB PO SCH (08:44)
[2019-01-07] MEDS: MULTIVITAMIN TAB PO SCH (08:44)
[2019-01-07] MEDS: ASPIRIN 81 MG ECTAB PO SCH (08:44)
[2019-01-07] MEDS: ISOSORBIDE MONO EXTENDED REL 30 MG TABCR PO SCH (08:48)
[2019-01-07] MEDS: INSULIN ASPART 100 UNITS/ML 3 ML PEN SC SCH (08:50)
--- NOTE | 2019-01-07 11:36 | Cardiology Progress Note ---
Date of Service January 07, 2019 Assessment & Plan (1) Hypertension: now well controlled would no make any changes to medical regimen and discharge on meds that she was on previously ok to d/c patient to home/rehab from cardiac standpoint (2) Osteoarthritis of left knee: POD 2. Ortho following PT and pain management (3) CAD (coronary artery disease): Stable. No anginal symptoms Continue home medications. ASA resumed. Subjective Pt seen and examined, states that she feels well. No significant knee pain. Denies cp, sob, palpitations, lightheadedness or dizziness. Review of Systems Review of Systems: All systems reviewed & are unremarkable except as noted in HPI & below Physical Exam Physical Exam: General: Awake, alert and oriented x 3. No acute distress. HEENT: Normocephalic, atraumatic. Pupils equal, round and reactive to light and accommodation. Extraocular muscles are intact. Anicteric sclera. Moist mucous membranes. Neck: No JVD. No bruit. Cardiovascular: Regular. Positive S-4. Normal S-1 and S-2. No S-3. No murmurs or rubs. Pulmonary: Clear to auscultation B/L. No rales, rhonchi or wheezing Abdomen: Bowel sounds x 4, soft. No rebound, guarding or tenderness. No organomegaly. Extremities: No clubbing, cyanosis or edema. +2 pedal pulses bilaterally. Skin: Warm and dry. Results & Data Vital Signs (Past 12 Hours) Vital Signs Temp Pulse Pulse Resp BP Pulse Ox 01/07/19 08:45 59 L 119/63 01/07/19 07:13 36.9 C 51 L 18 162/61 H 96 01/07/19 03:04 50 L 01/06/19 23:40 36.8 C 49 L 18 119/62 97
[2019-01-07] MEDS ORDERED: METFORMIN HCL 500 MG TAB PO SCH (16:30)
--- NOTE | 2019-01-09 19:01 | Discharge Summary ---
Date of Service Date of Admission: 01/05/19 Date of Discharge: 01/07/19 Admission HPI Per Admitting Provider Ms Pabon is a 83 year old female who is here for a follow up of left knee pain, presents for pre-op evaluation prior to a left total knee replacement at [facility] on 01-05-19. She presents with pain, decreased range of motion and stiffness on the left side. She states that the symptoms have been chronic non-traumatic. The symptoms occur constantly with intermittent worsening. Currently the patient states that the symptoms are moderate. The pain is described as aching and sharp. The symptoms occur continuously. She rates her current pain as 5/10. The symptoms are aggravated by ascending stairs, daily activities, descending stairs, first steps while awake, movement, pulling, pushing, repetitive activities, squatting, standing, weather changes, walking and weight bearing. Prior pain medications include Tylenol. she has tried and failed both cortisone injections and viscosupplementation. Principal Diagnosis left knee osteoarthritis Discharge Exam Constitutional WD/WN, vitals as above no acute distress Musculoskeletal Left Knee: NVDI, calf SNT, negative renny sign. DP palpable, able to wiggle toes/ankle movement without difficulty. CAMELIA dressing clean dry and intact. expected post-operative bruising noted. Discharge Data Allergies Allergy/AdvReac Type Severity Reaction Status Date / Time Beta-Blockers Allergy Mild MAKES Verified 01/05/19 08:17 (Beta-Adrenergic Bloc BREATHING/ASTHMA WORSE-LOW PULSE animal dander Allergy Unknown INCREASES Verified 01/05/19 08:17 HER ASTHMA SYMPTOMS Consultations 01/05/19 13:38 Consult Case Management - Discharge Planning Routine 01/05/19 14:59 Consult Cardiology Routine Procedures Performed Operation Date: 01/05/19 10:20 Actual Procedures p Left Total Knee Arthroplasty(Left) - Sher Bejarano DO Ordered Studies 01/05/19 05:00 US - OR guided needle placemen Routine Hospital Course (1) Osteoarthritis of left knee: Postop day 2 status post left total knee arthroplasty. PT OT protocols today. Weightbearing as tolerated. DVT prophylaxis with SCDs, VIOLETTA hose, ASA twice daily Pain management with [place], hydromorphone. DC planning-planning for home health services. Total Time Total Time Spent Total Time Spent (In Minutes): 20 Total Time Includes: Examination of the Patient, Discharge Planning and Medication Reconciliation Discharge Plan Discharge Items Patient Disposition: Home - Home Health Services Reason For Visit: Left Knee Osteoarthritis Discharge Diagnosis: left total knee replacement Condition: Good Discharge Goals: Decrease discomfort, Improve function and Increase independence Activity: Per 'Additional Instructions' section Lifting: Wait until after follow-up appointment Weightbearing: Left weightbearing Weightbearing Comment: wbat with walker Non-emergency contact: Primary Care Provider and Surgeon Call non-emergency contact if: you have any medication questions, your temperature is above 101, your wound has increased redness, your wound has increased drainage and your wound pain has increased Follow-up/Referrals: Ayana Bergeron [Primary Care Provider] - Diet: Carb Consistent or DM2 Addtl Provider Instructions: ACTIVITY RECOMMENDATIONS: SELF CARE INSTRUCTIONS AFTER TOTAL KNEE REPLACEMENT A. You may need to continue a physical therapy program after discharge from the hospital. There are several options available to you. Your doctor will assist you in selecting the best one for you. 1. An out-patient facility 2 to 3 times a week for therapy or home therapy. 2. Continue working on all exercises taught to you in the hospital. Your goals should be to increase bending of your knee to 90 degrees and beyond and to fully straighten your knee. B. You may progress at your own pace from walking with a walker or crutches to a cane; then to no assistive devices. C. Make walking a part of your daily routine. Be up as much as comfortable with rest periods throughout the day. Rest with leg elevation is very important. Use the ice wrap frequently for the first 3-4 weeks. D. There are no restrictions on activities. You may ride in a car, shop, participate in breading machine tender and all social activities. E. Wear the long elastic stockings (VIOLETTA hose) 20 hours a day for 2 weeks after surgery. They can be removed several times a day for laundering and for a bath. F. You may shower, no tub baths until cleared by your doctor. SPECIAL CARE INSTRUCTIONS: VERY IMPORTANT TO READ AND REVIEW A. There are a few signs you need to watch for after you are home. Call [facility] if you notice any of the followin. Increased severe knee pain. Some pain is expected especially when you exercise. 2. Increased swelling in your leg or knee; pain or swelling of the calf muscle in either lower leg. 3. Any fluid drainage from the incision. 4. Shortness of breath or chest pain. B. Please call [facility] at if you have any concerns or questions about your operation or recovery. The doctor or his nurse will return your call promptly. C. You must take antibiotics before dental work, bladder, bowel or other surgery. Your doctor will provide you with a permanent care to carry describing this precaution. IMPORTANT: * REMEMBER TO TAKE ASPIRIN, 81 MG, TWICE DAILY FOR 4 WEEKS UNLESS OTHERWISE DIRECTED. THIS IS YOUR BLOOD THINNER. * HIGH RISK PATIENTS MAY BE PRESCRIBED A STRONGER BLOOD THINNER. THIS WILL BE PROVIDED AT DISCHARGE. * CALL IF INCREASED PAIN, REDNESS, DRAINAGE OR FEVER GREATER THAT 101. * WEAR VIOLETTA HOSE 20 HOURS PER DAY FOR 2 WEEKS. * CAMELIA Dressing- This is a large suction dressing covering your incision. This will help pull any excess drainage from the wound and allow your incision to heal properly. You may shower with this if you can keep the unit outside of the shower. If any bleeding or leakage is noted please call your doctor's office. This will remain on your incision for 7 days and then should be removed. This can be done yourself or by the home nursing staff if applicable. The entire unit is disposable once removed. Once removed, keep incision clean and dry. If redness or drainage is noted, please call your surgeon. DERMABOND Prineo- This is a mesh tape dressing that is covered with glue. It should remain in place until the incision is properly healed, usually 10-14 days. This dressing is designed to naturally slough off. You may trim the excess mesh tape as it peels off. Incision may be briefly wet in a shower. Dry immediately by blotting with a clean, dry towel. Do not bath or swim until instructed by your doctor. Do not scratch, rub, or pick at the dressing. Do not apply any topical ointments or lotions until dressing is completely removed and/or instructed by your doctor. There may be a small piece of suture material at one end of your incision. Do not pull or trim this. If it is bothersome or catching on clothing, you may cover it with a band-aid. IF INCISION IS LEAKING THROUGH DRESSING, CALL THE OFFICE . FOLLOW UP VISIT: If appointment is not already scheduled: Please call [facility] to make a follow-up appointment for 2 weeks after your surgery at . Prescriptions: New hydrocodone-acetaminophen [[place]] 5-325 mg Tablet 1 - 2 tab PO Q6H PRN (Reason: pain) Qty: 30 RF: 0 aspirin [Ecotrin Low Strength] 81 mg Tablet,Delayed Release (Dr/Ec) 81 mg PO BID 30 Days Qty: 60 RF: 0 cefadroxil 500 mg capsule 500 mg PO BID 10 Days Qty: 20 RF: 0 hydrocodone-acetaminophen [[place]] 5-325 mg tablet 1 - 2 tab PO Q6H Qty: 30 RF: 0 Continued atorvastatin 20 mg Tablet 20 mg PO HS RF: 0 isosorbide mononitrate 30 mg Tablet Extended Release 24 Hr 30 mg PO QAM RF: 0 calcium carbonate [Tums] 200 mg calcium (500 mg) Tablet,Chewable 200 mg PO HS RF: 0 docusate sodium 100 mg Capsule 100 mg PO DAILY PRN (Reason: Constipation) RF: 0 losartan 100 mg Tablet 100 mg PO HS RF: 0 Alphagan P 0.1 % Drops 1 drp OPHTHALMIC (EYE) BID RF: 0 cholecalciferol (vitamin D3) [Vitamin D3] 2,000 unit Capsule 2,000 unit PO QAM RF: 0 psyllium husk [Metamucil] 0.4 gram Capsule 0.4 g PO BID RF: 0 metformin 500 mg Tablet 500 mg PO QPM RF: 0 metoprolol succinate 25 mg Capsule,Sprinkle,Er 24hr 12.5 mg PO QPM RF: 0 ranitidine HCl 150 mg Tablet 150 mg PO HS PRN (Reason: Acid Reflux) RF: 0 fluticasone propionate [Flonase Allergy Relief] 50 mcg/actuation [place],Suspension 2 spray INTRANASAL DAILY PRN (Reason: Allergy Symptoms) RF: 0 Breo Ellipta 100-25 mcg/dose Blister With Device 1 inh INHALATION [id number] RF: 0 hydralazine 25 mg Tablet 25 mg PO TID RF: 0 Discontinued aspirin [Aspir-81] 81 mg Tablet,Delayed Release (Dr/Ec) 81 mg PO QAM RF: 0 melatonin 10 mg Capsule 10 mg PO HS RF: 0 acetaminophen [Tylenol Arthritis Pain] 650 mg Tablet Extended Release 650 mg PO QID PRN (Reason: Pain) RF: 0 Stand-Alone Forms: My [facility] burrp!, Opioid Pain Management Krames/Other Patient Handouts: Surgery Prevent DVT After Discharge Orders: Discharge Order (Routine); Ordered 01/07/19 Ordered By: Hamilton Naylor Admission Data Admit Date/Time: 01/05/19 12:33 Attending Provider: Shre Bejarano Admit Provider: Sher Bejarano Primary Care Provider: Ayana Bergeron Other Providers: Shivam Akers Service: Surgical Services Other Interventions: Discharge Summary Assessment (RN) Last Done: 01/07/19 10:32 Pending Studies at Discharge: No DC Date/Time DO NOT enter until pt leaves facility: 01/07/19 11:51
== END 2019-01-07 11:51 | disposition home health service (06) | DRG 470 ==
LOC: ASU 07:47 → 3E 12:33

== ENCOUNTER 2020-10-30 09:15 | Observation (INO) ==
[2020-10-30] MEDS ORDERED: NITROGLYCERIN SL 0.4 MG/TAB TAB SL PRN (09:34)
--- NOTE | 2020-10-30 10:08 | XRay Report ---
XR chest 1V portable HISTORY: 85 years-old Female Chest Pain acute atypical chest pain COMPARISON: Chest radiograph 01/10/2019 TECHNIQUE: Portable AP view of the chest FINDINGS: Cardiac silhouette is mildly enlarged. Hiatal hernia. Calcified plaque the thoracic aorta. No pneumot horax, pleural effusion, airspace consolidation or overt pulmonary edema. Degenerative changes of the shoulders and spine. IMPRESSION: 1. No acute process. 2. Hiatal hernia. ACT 112: Negative or not required by law. The above report was generated using voice recognition software. It may contain grammatical, syntax o r spelling errors. Electronically signed by: Darci Israel M.D. 10/30/2020 10:06 AM
[2020-10-30 10:12] LABS: Basophils # (auto) 0.06 K/uL (0-0.2); Basophils % (auto) 0.8 %; Eosinophils # (auto) 0.06 K/uL (0-0.5); Eosinophils % (auto) 0.8 %; Hematocrit (blood only) 37.6 % (37-47); Hemoglobin 12.5 g/dL (12.0-16.0); Immature Granulocytes # (auto) 0.01 K/uL (0.00-0.02); Immature Granulocytes % (auto) 0.1 %; Lymphocytes # (auto) 1.39 K/uL (1.2-3.4); Lymphocytes % (auto) 17.7 %; Mean Corpuscular Hemoglobin 31.2 pg (25-34); Mean Corpuscular Hgb Conc 33.2 g/dL (32-36); Mean Corpuscular Volume 93.8 fL (80-100); Mean Platelet Volume 10.1 fL (7.4-10.4); Monocytes # (auto) 0.59 K/uL (0.11-0.59); Monocytes % (auto) 7.5 %; Neutrophils # (auto) 5.76 K/uL (1.4-6.5); Neutrophils % (auto) 73.1 %; Platelet Count 314 K/uL (130-400); RDW Standard Deviation 44.7 fL (36.4-46.3); Red Blood Count 4.01 M/uL (4.2-5.4); White Blood Count 7.87 K/uL (4.8-10.8)
[2020-10-30] MEDS ORDERED: NITROGLYCERIN 2% OINTMENT 30GM TUBE EXT STA (10:12)
[2020-10-30] MEDS ORDERED: ASPIRIN CHEW 324 MG PO STA (10:12)
[2020-10-30 10:32] LABS: Alanine Aminotransferase 21 U/L (12-78); Aspartate Aminotransferase 25 U/L (15-37); Blood Urea Nitrogen 20 mg/dl (7-18); Calcium 9.3 mg/dl (8.5-10.1); Carbon Dioxide 24 mmol/L (21-32); Chloride 109 mmol/L (98-107); Est GFR (African American) 51.7; Est GFR (Non-African American) 44.6; Glucose 136 mg/dl (70-99); Lipase 373 U/L (73-393); Potassium 4.6 mmol/L (3.5-5.1); Sodium 140 mmol/L (136-145)
[2020-10-30 10:37] LABS: Albumin Globulin Ratio 1.1 (0.9-2); Alkaline Phosphatase 60 U/L (45-117); Bilirubin,Total 0.4 mg/dl (0.2-1); Globulin 3.6 gm/dl (2.5-4.0); Total Protein 7.6 gm/dl (6.4-8.2); Troponin I < 0.015 ng/ml (0-0.045)
--- NOTE | 2020-10-30 10:39 | Emergency Department Note ---
ED Visit Note I contributed to the care of this patient under the supervision of Dr. Zheng . Resident Activity Tracking Resident Involvement: Resident Care Provided Care Provided: Adult ED
--- NOTE | 2020-10-30 10:59 | Emergency Department Note ---
Impression & Plan Chest pain, Hypertension ED Provider Note INFORMANT: Patient ED PROVIDER(S): Art Zheng MD CHIEF COMPLAINT: Hypertension PLAN: Disposition: Admitted Condition: Good Outpatient prescription management: none Referral: None MEDICAL DECISION MAKING: Patient presented to emergency department complaining of hypertension. She also noted chest discomfort and a headache. She had a nonfocal neurologic examination. Her CBC and chemistry panel was unremarkable. Cardiac troponin was negative. Her twelve-lead ECG did not reveal any ST elevation or depression but there was a nonspecific abnormality present. She was trialed with nitroglycerin. This helped with her chest discomfort and it resolved. Her blood pressure improved. Her blood pressure began to increase. [facility] Hydral[facility] was requested and this was given. The patient does take this at home. Further management in the hospital will be necessary. Patient was evaluated by the team in the ER and admitted. The patient was seen and examined with Dr. Rome, resident physician. We discussed the case and treatments ordered, reviewed the results, and determine the disposition. I have been directly involved with the management and disposition as well as independently evaluated the patient as documented in this note. Triage Nursing notes reviewed and agree them. Additional history obtained from family Vital Signs: reviewed and remarkable for hypertension Differential diagnosis: Cardiac ischemia, aortic dissection, pulmonary embolism, pneumothorax, pneumonia, pericarditis, myocarditis, esophageal rupture, GERD, cholecystitis, pancreatitis, musculoskeletal, as well as other pathologies. Diagnostics interpreted by me: ECG: Rate:63 Rhythm:Normal sinus Tolstoy:Normal QRS:Normal ST segements:No elevation or depression Other:No PACs or PVCs Cardiac Monitoring: Cardiac monitoring ordered by me: The patient was placed on continuous cardiac monitoring and observed. It revealed a normal sinus rhythm at 60 beats per minute without ectopy or evidence of dysrhythmia. Imaging studies: Chest x-ray. Findings: A chest x-ray was performed and revealed no pneumothorax, effusion, infiltrate, pulmonary edema, free air under the diaphragm, or wide mediastinum. HPI: The patient is a 85 year old female who presents to the Emergency Room with complaints of chest pain. This started last night and developed a MICHAEL today and it is moderate. The patient also notes the following associated symptoms, headache, HTN, mild SOB. The patient has taken her morning medications for relieving factors. Current pain is rated as 4/10. Blood pressure has be trending higher lately. Pt denies LOC, headache, fevers, chills, diaphoresis, visual changes, neck pain, nausea, vomiting, abdominal pain, back pain, melena, hematochezia, urinary symptoms, numbness, weakness, lymphadenopathy, rash, or other complaints. ROS: See above HPI for pertinent positives & negatives. A total of 10 systems reviewed and were otherwise negative. PAST MEDICAL HISTORY:See Below , CAD PAST SURGICAL HISTORY:See Below, FAMILY HISTORY:See Below SOCIAL HISTORY:See Below, non-smoker HOME MEDICATIONS:See Below ALLERGIES:See Below VITALS:See Below PHYSICAL EXAMINATION: GENERAL: Awake, alert, well-appearing, in no distress HENT: Normocephalic, atraumatic. Oropharynx unremarkable. EYES: Normal conjunctiva. Sclera non-icteric. NECK: Inspection normal. Non-tender. Supple. No nuchal rigidity. FROM. No masses. RESPIRATORY: Clear to auscultation. No wheezes. No rales. Normal respiratory effort. CARDIAC: Normal rate. Normal rhythm. No murmurs. No rubs. Extremities warm and well perfused. Pulses equal. No JVD. GI: Soft, non-distended. No tenderness to palpation. No rebound or guarding. No masses. RECTAL: Deferred. MUSCULOSKELETAL: Atraumatic. Chest examination reveals no tenderness. The back is symmetrical on inspection without obvious abnormality. There is no CVA tenderness to palpation. No joint edema. LOWER EXTREMITIES: Calves are equal size bilaterally and non-tender. No edema. No discoloration. NEURO: Normal sensorium. No sensory or motor deficits noted. SKIN: No rash or jaundice noted. Art Zheng MD Past Med/Surg History Medical History Anxiety Asthma STABLE WITH BREO 3X/WK. NO RESCUE INHALER USE. CAD (coronary artery disease) Per cardio 11/09/18 "branch vessel coronary artery disease with mild to moderate atherosclerosis in 70-80% narrowing of a small branch of the left circumflex." Cardiac cath 2017, no stents. Diabetes mellitus, type 2 GERD (gastroesophageal reflux disease) Glaucoma Hiatal hernia Hyperlipidemia Hypertension Lung nodules UNDER OBSERVATION Lyme disease TREATED-DX'D 4-5 YRS AGO Myocardial Infarction 11/2017 NSTEMI in the setting of hypertensive urgency, elevated HR. Osteoarthritis Osteoporosis Pancreatitis HX SOB (shortness of breath) on exertion Surgical History Cancer BASAL CELL NECK REMOVAL History of cardiac cath 11/2017 for NSTEMI NO STENTS-[facility] History of esophagogastroduodenoscopy (EGD) WITH DILITATION History of laparotomy ECTOPIC History of total left knee replacement Family History (Updated 10/30/20 @ 16:25 by KURTIS River) Aunt Family history of diabetes mellitus Father Hypertension Social History Smoking Status: Never smoker Second Hand Exposure: No; Hx Alcohol Use: No Hx Substance Use: No Preferred Language: Cymro Communication Ability: Effective Sub Plant Manager Required: No Beliefs That Will Affect Care: None marital status: Current Living Situation: Spouse Feels Safe at Home: Yes Assistive Devices: Walker Allergies Allergies Allergy/AdvReac Type Severity Reaction Status Date / Time Beta-Blockers Allergy Mild MAKES Verified 10/30/20 10:58 (Beta-Adrenergic Bloc BREATHING/ASTHMA WORSE-LOW PULSE animal dander Allergy Unknown INCREASES Verified 10/30/20 10:58 HER ASTHMA SYMPTOMS Home Meds Home Medications Medication Instructions Recorded Confirmed Breo Ellipta 1 inh INHALATION 2XWK 11/11/18 10/30/20 atorvastatin 20 mg PO HS 11/11/18 10/30/20 cholecalciferol (vitamin D3) 2,000 unit PO QAM 11/11/18 10/30/20 [Vitamin D3] docusate sodium 100 mg PO HS 11/11/18 10/30/20 fluticasone propionate [Flonase 2 spray INTRANASAL HS 11/11/18 10/30/20 Allergy Relief] isosorbide mononitrate 30 mg PO BID 11/11/18 10/30/20 losartan 100 mg PO QDL 11/11/18 10/30/20 metformin 500 mg PO BID 11/11/18 10/30/20 metoprolol succinate 12.5 mg PO HS 11/11/18 10/30/20 psyllium husk [Metamucil] 0.4 g PO DAILY 11/11/18 10/30/20 aspirin [Aspirin Low Dose] 81 mg PO DAILY 10/30/20 10/30/20 brimonidine 1 drp OPB TID 10/30/20 10/30/20 calcium carbonate [Tums E-X] 300 mg PO DAILY 10/30/20 10/30/20 famotidine [Pepcid] 20 mg PO DAILY PRN 10/30/20 10/30/20 hydralazine 25 mg PO DAILY 10/30/20 10/30/20 hydralazine 50 mg PO BID 10/30/20 10/30/20 melatonin 10 mg PO HS 10/30/20 10/30/20 sertraline 25 mg PO DAILY 10/30/20 10/30/20 Results & Data (ED) Vital Signs Vital Signs - 24 hr 10/30/20 09:23 10/30/20 09:49 10/30/20 10:31 Temperature 36.3 C L Temperature Source Temporal Artery Scan Pulse Rate 73 57 L 55 L Pulse Rate [Apical] 59 L Pulse Rate from SpO2 Sensor 56 L Pulse Rhythm Regular Regular Pulse Strength Normal Respiratory Rate 18 20 18 Respiratory Effort / Characteristics Non-Labored Non-Labored Spontaneous Respiratory Depth Normal Normal Respiratory Pattern Regular Regular Blood Pressure 208/71 H 179/66 H Blood Pressure [Right Arm] 201/63 H Blood Pressure Mean 116 103 Blood Pressure Mean [Right Arm] 109 Blood Pressure Position Sitting Blood Pressure Position [Right Arm] Semi-fowlers Pulse Oximetry 98 99 98 Oxygen Delivery Method Room Air Room Air Sepsis Recent Fever Within 48 Hours No Sepsis New/Unexplained Change in Mental Status No Sepsis Action Taken by Nursing No Action Required 10/30/20 11:00 10/30/20 11:30 10/30/20 12:00 Temperature Temperature Source Pulse Rate 55 L 56 L 62 Pulse Rate [Apical] Pulse Rate from SpO2 Sensor 55 L 57 L 63 Pulse Rhythm Pulse Strength Respiratory Rate 21 21 20 Respiratory Effort / Characteristics Respiratory Depth Respiratory Pattern Blood Pressure 173/54 H 189/64 H 179/61 H Blood Pressure [Right Arm] Blood Pressure Mean 93 105 100 Blood Pressure Mean [Right Arm] Blood Pressure Position Blood Pressure Position [Right Arm] Pulse Oximetry 97 97 97 Oxygen Delivery Method Sepsis Recent Fever Within 48 Hours Sepsis New/Unexplained Change in Mental Status Sepsis Action Taken by Nursing 10/30/20 12:30 10/30/20 13:00 10/30/20 15:00 Temperature Temperature Source Pulse Rate 58 L 59 L Pulse Rate [Apical] 64 Pulse Rate from SpO2 Sensor 59 L 59 L Pulse Rhythm Pulse Strength Respiratory Rate 21 22 18 Respiratory Effort / Characteristics Respiratory Depth Respiratory Pattern Blood Pressure 180/64 H 200/63 H Blood Pressure [Right Arm] 163/63 H Blood Pressure Mean 102 108 Blood Pressure Mean [Right Arm] 96 Blood Pressure Position Blood Pressure Position [Right Arm] Pulse Oximetry 97 97 Oxygen Delivery Method Sepsis Recent Fever Within 48 Hours Sepsis New/Unexplained Change in Mental Status Sepsis Action Taken by Nursing Laboratory Data Result diagrams: 10/30/20 09:51 10/30/20 09:51 Lab Results 10/30/20 10/30/20 10/30/20 Range/Units 09:51 09:51 09:51 WBC 7.87 (4.8-10.8) K/uL RBC 4.01 L (4.2-5.4) M/uL Hgb 12.5 (12.0-16.0) g/dL Hct 37.6 (37-47) % MCV 93.8 (80-100) fL MCH 31.2 (25-34) pg MCHC 33.2 (32-36) g/dL RDW Std Deviation 44.7 (36.4-46.3) fL RDW Coeff of Don 13.0 (11.5-14.5) % Plt Count 314 (130-400) K/uL MPV 10.1 (7.4-10.4) fL Immature Gran % (Auto) 0.1 % Neut % (Auto) 73.1 % Lymph % (Auto) 17.7 % [place] % (Auto) 7.5 % Eos % (Auto) 0.8 % Baso % (Auto) 0.8 % Neut # (Auto) 5.76 (1.4-6.5) K/uL Lymph # (Auto) 1.39 (1.2-3.4) K/uL [place] # (Auto) 0.59 (0.11-0.59) K/uL Eos # (Auto) 0.06 (0-0.5) K/uL Baso # (Auto) 0.06 (0-0.2) K/uL Immature Gran # (Auto) 0.01 (0.00-0.02) K/uL PT 10.0 (9.0-12.0) Seconds INR 1.0 (0.9-1.1) APTT 22.2 (21.0-31.0) Seconds PTT Ratio 0.8 Sodium 140 (136-145) mmol/L Potassium 4.6 (3.5-5.1) mmol/L Chloride 109 H (98-107) mmol/L Carbon Dioxide 24 (21-32) mmol/L Anion Gap 6.0 (3-11) BUN 20 H (7-18) mg/dl Creatinine 1.13 (0.6-1.2) mg/dl Est Cr Clr Drug Dosing Not Reportable Est GFR ( Amer) 51.7 Est GFR (Non-Af Amer) 44.6 BUN/Creatinine Ratio 18.0 (10-20) Glucose 136 H (70-99) mg/dl Calcium 9.3 (8.5-10.1) mg/dl Total Bilirubin 0.4 (0.2-1) mg/dl AST 25 (15-37) U/L ALT 21 (12-78) U/L Alkaline Phosphatase 60 (45-117) U/L Troponin I < 0.015 (0-0.045) ng/ml Total Protein 7.6 (6.4-8.2) gm/dl Albumin 4.0 (3.4-5.0) gm/dl Globulin 3.6 (2.5-4.0) gm/dl Albumin/Globulin Ratio 1.1 (0.9-2) Lipase 373 (73-393) U/L COVID-19 Eval Order SARS-CoV-2 (PCR) (Negative) Influenza Type A (PCR) (Neg) Influenza Type B (PCR) (Neg) RSV (RT-PCR) (Neg) 10/30/20 10/30/20 Range/Units 13:40 13:40 WBC (4.8-10.8) K/uL RBC (4.2-5.4) M/uL Hgb (12.0-16.0) g/dL Hct (37-47) % MCV (80-100) fL MCH (25-34) pg MCHC (32-36) g/dL RDW Std Deviation (36.4-46.3) fL RDW Coeff of Don (11.5-14.5) % Plt Count (130-400) K/uL MPV (7.4-10.4) fL Immature Gran % (Auto) % Neut % (Auto) % Lymph % (Auto) % [place] % (Auto) % Eos % (Auto) % Baso % (Auto) % Neut # (Auto) (1.4-6.5) K/uL Lymph # (Auto) (1.2-3.4) K/uL [place] # (Auto) (0.11-0.59) K/uL Eos # (Auto) (0-0.5) K/uL Baso # (Auto) (0-0.2) K/uL Immature Gran # (Auto) (0.00-0.02) K/uL PT (9.0-12.0) Seconds INR (0.9-1.1) APTT (21.0-31.0) Seconds PTT Ratio Sodium (136-145) mmol/L Potassium (3.5-5.1) mmol/L Chloride (98-107) mmol/L Carbon Dioxide (21-32) mmol/L Anion Gap (3-11) BUN (7-18) mg/dl Creatinine (0.6-1.2) mg/dl Est Cr Clr Drug Dosing Est GFR ( Amer) Est GFR (Non-Af Amer) BUN/Creatinine Ratio (10-20) Glucose (70-99) mg/dl Calcium (8.5-10.1) mg/dl Total Bilirubin (0.2-1) mg/dl AST (15-37) U/L ALT (12-78) U/L Alkaline Phosphatase (45-117) U/L Troponin I (0-0.045) ng/ml Total Protein (6.4-8.2) gm/dl Albumin (3.4-5.0) gm/dl Globulin (2.5-4.0) gm/dl Albumin/Globulin Ratio (0.9-2) Lipase (73-393) U/L COVID-19 Eval Order CovFluRsv at [facility] SARS-CoV-2 (PCR) NEGATIVE (Negative) Influenza Type A (PCR) Negative (Neg) Influenza Type B (PCR) Negative (Neg) RSV (RT-PCR) Negative (Neg) Administered Medications Nitroglycerin (Nitroglycerin Sl 0.4 Mg/Tab Tab) 0.4 mg SL UD PRN PRN Reason: Chest Pain Stop: 11/29/20 09:33 Last Admin: 10/30/20 09:52 Dose: 0.4 mg Documented by: [id number] Discontinued Medications Acetaminophen (Acetaminophen 325 Mg Tab) Confirm Administered Dose 650 mg .ROUTE .STK-MED ONE Stop: 10/30/20 15:56 Last Admin: 10/30/20 15:59 Dose: 650 mg Documented by: [id number] Aspirin (Aspirin Chew 324 Mg) 324 mg PO ONE STA Stop: 10/30/20 10:13 Last Admin: 10/30/20 10:24 Dose: 243 mg Documented by: [id number] Hydralazine HCl (Hydralazine Hcl 20 Mg/Ml Vial) 5 mg IV NOW ONE Stop: 10/30/20 14:14 Last Admin: 10/30/20 14:16 Dose: 5 mg Documented by: [id number] Nitroglycerin (Nitroglycerin 2% Ointment 30gm Tube) 0.5 inch EXT ONE STA Stop: 10/30/20 10:13 Last Admin: 10/30/20 10:25 Dose: 0.5 inch Documented by: [id number] Discharge Plan Visit Data Chief Complaint: Hypertension Stated Complaint: BURNING IN CHEST,HYPERTENSION ED Provider: Art Zheng ED Midlevel Provider: Micheal Stephenson Discharge Problem: Chest pain, Hypertension Forms Stand Alone Forms: My [facility] [place] [employer] Prescriptions Prescriptions: No Action atorvastatin 20 mg Tablet 20 mg PO HS RF: 0 isosorbide mononitrate 30 mg Tablet Extended Release 24 Hr 30 mg PO BID RF: 0 docusate sodium 100 mg Capsule 100 mg PO HS RF: 0 losartan 100 mg Tablet 100 mg PO QDL RF: 0 cholecalciferol (vitamin D3) [Vitamin D3] 2,000 unit Capsule 2,000 unit PO QAM RF: 0 psyllium husk [Metamucil] 0.4 gram Capsule 0.4 g PO DAILY RF: 0 metformin 500 mg Tablet 500 mg PO BID RF: 0 metoprolol succinate 25 mg Capsule,Sprinkle,Er 24hr 12.5 mg PO HS RF: 0 fluticasone propionate [Flonase Allergy Relief] 50 mcg/actuation [place],Suspension 2 spray INTRANASAL HS RF: 0 Breo Ellipta 100-25 mcg/dose Blister With Device 1 inh INHALATION 2XWK RF: 0 calcium carbonate [Tums E-X] 300 mg (750 mg) Tablet,Chewable 300 mg PO DAILY RF: 0 famotidine [Pepcid] 20 mg Tablet 20 mg PO DAILY PRN (Reason: Dyspepsia) RF: 0 brimonidine 0.2 % Drops 1 drp OPB TID RF: 0 sertraline 25 mg Tablet 25 mg PO DAILY RF: 0 melatonin 10 mg Tablet 10 mg PO HS RF: 0 aspirin [Aspirin Low Dose] 81 mg Tablet,Delayed Release (Dr/Ec) 81 mg PO DAILY RF: 0 hydralazine 50 mg Tablet 25 mg PO DAILY RF: 0 hydralazine 50 mg Tablet 50 mg PO BID RF: 0
[2020-10-30 11:16] LABS: Partial Thromboplastin Ratio 0.8; Partial Thromboplastin Time 22.2 Seconds (21.0-31.0)
[2020-10-30] MEDS ORDERED: hydrALAZINE HCL 20 MG/ML VIAL IV ONE (14:13)
--- NOTE | 2020-10-30 14:37 | Electrocardiogram Report ---
Test Reason : Blood Pressure : / mmHG Vent. Rate : 063 BPM Atrial Rate : 063 BPM P-R Int : 150 ms QRS Dur : 076 ms QT Int : 406 ms P-R-T Axes : 063 021 041 degrees QTc Int : 415 ms Normal sinus rhythm When compared with ECG of 10-JAN-2019 19:54, Vent. rate has decreased BY 50 BPM Confirmed by González Goldberg ([id number]) on 10/30/2020 2:36:56 PM Referred By: Confirmed By:Shiva Goldberg
[2020-10-30 14:46] LABS: Influenza A virus by PCR Negative (Neg); Influenza B virus by PCR Negative (Neg); RSV by PCR Negative (Neg); SARS CoV2 RNA(COVID-19) InHosp NEGATIVE (Negative)
--- NOTE | 2020-10-30 15:52 | Cardiology Consultation ---
Date of Consultation October 30, 2020 Assessment & Plan (1) Hypertensive urgency: (2) CAD (coronary artery disease): (3) Diabetes mellitus, type 2: (4) Asthma: It was my pleasure to see Mrs. Hoover in urgent cardiac consultation today. It does appear that she is suffering from hypertensive urgency and I believe most prudent course of action would be for further medication titration. To that end, I will start on amlodipine 5 mg p.o. daily and increase her hydralazine to 50 mg p.o. 3 times daily. Should her blood pressure remain elevated both of these medications can easily be uptitrated. She should be continued on her outpatient doses of atorvastatin, aspirin, Imdur, metoprolol and losartan. A 2D echocardiogram will be obtained EKG is unremarkable. Initial troponin is negative but I suspect this will elevate due to myocardial strain with hypotension. Given her presentation I would also recommend that her neurologic evaluation be performed including carotid Dopplers and possibly CT of the head. Will defer to the primary team. History of Present Illness Reason for Consultation: Hypertensive urgency Requesting Physician: Dr. Yan Attending Physician: Dr. Yan History of Present Illness It was my pleasure to see Mrs. Hoover in cardiac consultation today October 30, 2020. She is a very pleasant 85-year-old woman who has been followed by Dr. Akers and Hamilton Gupta of our cardiology practice in the past. She presents to [facility] on October 30, 2020 with complaints of headache and chest burning. She states that she was in her normal state of health but last night she checked her blood pressure was 191 systolic. She went to bed without any symptoms but awoke with a severe headache. She retook her blood pressure at that time and was unchanged. Shortly thereafter she developed a burning sensation in her chest. She became concerned and came to the emergency department upon arrival her systolic blood pressure was greater 200, she was given sublingual nitroglycerin and nitro patch with improvement of the numbers. She states that with this her chest burning has also resolved and her headache has improved but not resolved. She states that she has been compliant with all of her medications as of late without any significant changes at home. Otherwise she states that she has been feeling well lately. Past medical history as per most recent outpatient cardiology visit note: 1. Longstanding hypertension with hypertensive heart disease 2. Branch vessel coronary disease with [id number] atherosclerosis and 70 to 80% narrowing of the small branch of the left circumflex 3. Non ST segment elevation myocardial infarction November 2017 setting hypertensive urgency 4. Stable class 1 2 angina pectoris 5. Hyperlipidemia 6. Asthmatic lung disease Allergies Allergy/AdvReac Type Severity Reaction Status Date / Time Beta-Blockers Allergy Mild MAKES Verified 10/30/20 10:58 (Beta-Adrenergic Bloc BREATHING/ASTHMA WORSE-LOW PULSE animal dander Allergy Unknown INCREASES Verified 10/30/20 10:58 HER ASTHMA SYMPTOMS Home Medications Medication Instructions Recorded Confirmed Type Jacob Ellipta 1 inh INHALATION 2XWK 11/11/18 10/30/20 History atorvastatin 20 mg PO HS 11/11/18 10/30/20 History cholecalciferol (vitamin D3) 2,000 unit PO QAM 11/11/18 10/30/20 History [Vitamin D3] docusate sodium 100 mg PO HS 11/11/18 10/30/20 History fluticasone propionate [Flonase 2 spray INTRANASAL HS 11/11/18 10/30/20 History Allergy Relief] isosorbide mononitrate 30 mg PO BID 11/11/18 10/30/20 History losartan 100 mg PO QDL 11/11/18 10/30/20 History metformin 500 mg PO BID 11/11/18 10/30/20 History metoprolol succinate 12.5 mg PO HS 11/11/18 10/30/20 History psyllium husk [Metamucil] 0.4 g PO DAILY 11/11/18 10/30/20 History aspirin [Aspirin Low Dose] 81 mg PO DAILY 10/30/20 10/30/20 History brimonidine 1 drp OPB TID 10/30/20 10/30/20 History calcium carbonate [Tums E-X] 300 mg PO DAILY 10/30/20 10/30/20 History famotidine [Pepcid] 20 mg PO DAILY PRN 10/30/20 10/30/20 History hydralazine 25 mg PO DAILY 10/30/20 10/30/20 History hydralazine 50 mg PO BID 10/30/20 10/30/20 History melatonin 10 mg PO HS 10/30/20 10/30/20 History sertraline 25 mg PO DAILY 10/30/20 10/30/20 History Patient History Medical History Anxiety Asthma STABLE WITH BREO 3X/WK. NO RESCUE INHALER USE. CAD (coronary artery disease) Per cardio 11/09/18 "branch vessel coronary artery disease with mild to moderate atherosclerosis in 70-80% narrowing of a small branch of the left circumflex." Cardiac cath 2017, no stents. Diabetes mellitus, type 2 GERD (gastroesophageal reflux disease) Glaucoma Hiatal hernia Hyperlipidemia Hypertension Lung nodules UNDER OBSERVATION Lyme disease TREATED-DX'D 4-5 YRS AGO Myocardial Infarction 11/2017 NSTEMI in the setting of hypertensive urgency, elevated HR. Osteoarthritis Osteoporosis Pancreatitis HX SOB (shortness of breath) on exertion Surgical History Cancer BASAL CELL NECK REMOVAL History of cardiac cath 11/2017 for NSTEMI NO STENTS-[facility] History of esophagogastroduodenoscopy (EGD) WITH DILITATION History of laparotomy ECTOPIC History of total left knee replacement Family History Aunt Family history of diabetes mellitus Social History Smoking Status: Never smoker Second Hand Exposure: No; Hx Alcohol Use: No Hx Substance Use: No Preferred Language: Danish Communication Ability: Effective Animal Care Provider Required: No Beliefs That Will Affect Care: None marital status: Current Living Situation: Spouse Feels Safe at Home: Yes Assistive Devices: Walker Review of Systems Review of Systems: All systems reviewed & are unremarkable except as noted in HPI & below Physical Exam Physical Exam: General: Awake, alert and oriented x 3. No acute distress. HEENT: Normocephalic, atraumatic. Pupils equal, round and reactive to light and accommodation. Extraocular muscles are intact. Anicteric sclera. Moist mucous membranes. Neck: No JVD. No bruit. Cardiovascular: Regular. Positive S-4. Normal S-1 and S-2. No S-3. 3/6 mid to late systolic ejection murmur, greatest at the right sternal border, second intercostal space with radiation to the bilateral carotids. No rubs. Pulmonary: Clear to auscultation bilaterally. No rales, rhonchi, or wheezing. Abdomen: Bowel sounds x 4, soft. No rebound, guarding or tenderness. No organomegaly. Extremities: No clubbing, cyanosis or edema. +2 pedal pulses bilaterally. Skin: Warm and dry. Results & Data ([facility]) Vital Signs (Past 12 Hours) Vital Signs Temp Pulse Pulse Resp BP BP Pulse Ox 10/30/20 15:00 64 18 163/63 H 10/30/20 13:00 59 L 22 200/63 H 97 10/30/20 12:30 58 L 21 180/64 H 97 10/30/20 12:00 62 20 179/61 H 97 10/30/20 11:30 56 L 21 189/64 H 97 10/30/20 11:00 55 L 21 173/54 H 97 10/30/20 10:31 55 L 18 179/66 H 98 10/30/20 09:49 57 L 59 L 20 201/63 H 99 10/30/20 09:23 36.3 C L 73 18 208/71 H 98
[2020-10-30] MEDS ORDERED: ACETAMINOPHEN 325 MG TAB ONE (15:55)
[2020-10-30] MEDS ORDERED: amLODIPine BESYLATE 5 MG TAB PO ONE (16:00)
--- NOTE | 2020-10-30 16:30 | History & Physical Report ---
Date of Service October 30, 2020 Assessment & Plan (1) Hypertensive urgency: -Admit to telemetry -Patient presenting from home with reports of chest discomfort/burning and headache and reported elevated BPs -In the ED, found to be significantly hypertensive 208/71 -History of longstanding HTN on multiple antihypertensives, noted intolerance to beta-blockers -Received sublingual nitroglycerin and 0.5 inch nitroglycerin paste in ED with improvement in chest discomfort and some improvement in BP -Also received hydralazine 5 mg IV -BP now 163/63 -EKG without acute ST changes, initial troponin negative; continue to cycle cardiac enzymes -Resting echo -Chest discomfort likely secondary to hypertensive urgency however given reports of burning and hiatal hernia noted on CXR, consider GERD as well. If symptoms return or persist, consider addition of PPI -Given reports of headache in the setting of hypertensive urgency, check CT head -Cardiology consult, case discussed with Dr. Sullivan. Appreciate recommendations for antihypertensive adjustment. -Continue losartan 100 mg daily, metoprolol succinate 12.5mg daily, isosorbide mononitrate 30 mg twice daily; start amlodipine 5 mg daily, increase hydralazine to 50 mg 3 times daily (2) CAD (coronary artery disease): -Appears stable -Continue aspirin, statin, beta-louisa, nitrate (3) Diabetes mellitus, type 2: -Unknown HgbA1c, check with a.m. labs -Hold metformin and utilize NovoLog per protocol while hospitalized (4) Asthma: -Appears stable, patient reports she only utilizes Breo 2 times per week on a as needed basis. Educated patient that Breo should be used daily and albuterol inhaler should be used as needed. (5) DVT prophylaxis: -SCDs pending head CT results History of Present Illness Chief Complaint: Chest discomfort, headache Primary Care Provider: Ayana Bergeron 85-year-old female with PMH branch vessel CAD, longstanding HTN, asthma, DM type II, and other problems listed below who presents to the ED for evaluation of chest discomfort and headache. Patient reports she closely self monitors her blood pressure at home. Reports that last evening her systolic blood pressure was 190. She also reports experiencing a burning in her chest at that time. She denies chest pain or chest pressure. Patient ports she was able to sleep throughout the night without difficulty. This morning whenever she awoke she reports persistent chest burning and she had also developed a headache. She rechecked her blood pressure and it was again 190. She then presented to the ED for further evaluation. She reports a moderately severe frontal headache. However has had some relief since receiving nitroglycerin in the ED. Denies unilateral weakness, numbness, tingling, facial droop. No difficulty with speech or understanding. Patient reports chronic exertional shortness of breath which is unchanged from baseline. No lightheadedness, dizziness, diaphoresis, syncopal events. Denies abdominal pain, nausea, vomiting, diarrhea. No other recent illnesses, fevers, chills. She denies urinary symptoms. On presentation to the ED, BP 208/71. She received sublingual nitroglycerin and 0.5 nitro glycerin topical paste. She reports resolution in her chest discomfort/burning and headache has eased however not resolved. Initial troponin is negative, EKG without acute ST changes. Patient was also given a full dose aspirin. Allergies Allergy/AdvReac Type Severity Reaction Status Date / Time Beta-Blockers Allergy Mild MAKES Verified 10/30/20 10:58 (Beta-Adrenergic Bloc BREATHING/ASTHMA WORSE-LOW PULSE animal dander Allergy Unknown INCREASES Verified 10/30/20 10:58 HER ASTHMA SYMPTOMS Home Medications Medication Instructions Recorded Confirmed Type Jacob Ellipta 1 inh INHALATION 2XWK 11/11/18 10/30/20 History atorvastatin 20 mg PO HS 11/11/18 10/30/20 History cholecalciferol (vitamin D3) 2,000 unit PO QAM 11/11/18 10/30/20 History [Vitamin D3] docusate sodium 100 mg PO HS 11/11/18 10/30/20 History fluticasone propionate [Flonase 2 spray INTRANASAL HS 11/11/18 10/30/20 History Allergy Relief] isosorbide mononitrate 30 mg PO BID 11/11/18 10/30/20 History losartan 100 mg PO QDL 11/11/18 10/30/20 History metformin 500 mg PO BID 11/11/18 10/30/20 History metoprolol succinate 12.5 mg PO HS 11/11/18 10/30/20 History psyllium husk [Metamucil] 0.4 g PO DAILY 11/11/18 10/30/20 History aspirin [Aspirin Low Dose] 81 mg PO DAILY 10/30/20 10/30/20 History brimonidine 1 drp OPB TID 10/30/20 10/30/20 History calcium carbonate [Tums E-X] 300 mg PO DAILY 10/30/20 10/30/20 History famotidine [Pepcid] 20 mg PO DAILY PRN 10/30/20 10/30/20 History hydralazine 25 mg PO DAILY 10/30/20 10/30/20 History hydralazine 50 mg PO BID 10/30/20 10/30/20 History melatonin 10 mg PO HS 10/30/20 10/30/20 History sertraline 25 mg PO DAILY 10/30/20 10/30/20 History Past Med/Surg History Medical History Anxiety Asthma STABLE WITH BREO 3X/WK. NO RESCUE INHALER USE. CAD (coronary artery disease) Per cardio 11/09/18 "branch vessel coronary artery disease with mild to moderate atherosclerosis in 70-80% narrowing of a small branch of the left circumflex." Cardiac cath 2017, no stents. Diabetes mellitus, type 2 GERD (gastroesophageal reflux disease) Glaucoma Hiatal hernia Hyperlipidemia Hypertension Lung nodules UNDER OBSERVATION Lyme disease TREATED-DX'D 4-5 YRS AGO Myocardial Infarction 11/2017 NSTEMI in the setting of hypertensive urgency, elevated HR. Osteoarthritis Osteoporosis Pancreatitis HX SOB (shortness of breath) on exertion Surgical History Cancer BASAL CELL NECK REMOVAL History of cardiac cath 11/2017 for NSTEMI NO STENTS-[facility] History of esophagogastroduodenoscopy (EGD) WITH DILITATION History of laparotomy ECTOPIC History of total left knee replacement Family History (Updated 10/30/20 @ 16:25 by KURTIS River) Aunt Family history of diabetes mellitus Father Hypertension Social History Smoking Status: Never smoker Second Hand Exposure: No; Hx Alcohol Use: No Hx Substance Use: No Preferred Language: Bel[place]an Communication Ability: Effective [employer] Of [employer] Operations Required: No Beliefs That Will Affect Care: None marital status: Current Living Situation: Spouse Feels Safe at Home: Yes Assistive Devices: Walker Review of Systems Review of Systems: ROS per HPI, all other systems reviewed and negative Physical Exam Constitutional: WD/WN, vitals as above Eyes: PERRL, conjunctivae normal, anicteric sclerae ENMT: external ear and nose normal, oropharynx normal Respiratory: normal respiratory effort, lungs clear to auscultation Cardiovascular: Rate/Rhythm: regular rate and regular rhythm Vessels: normal peripheral pulses Extremities: no edema Gastrointestinal (Abdomen): normal bowel sounds, soft, nontender, no hepatosplenomegaly Musculoskeletal: no cyanosis or clubbing, extremities motor strength 5/5 Skin: no rashes, warm and dry Neurologic: PERRL, EOMI, accommodation nl, no face palsy, no dysarthria no focal motor deficits Psychiatric: A+Ox3, euthymic affect Results & Data Results & Data ([facility]) Vital Signs (Past 12 Hours) Vital Signs Temp Pulse Pulse Resp BP BP Pulse Ox 10/30/20 15:00 64 18 163/63 H 10/30/20 13:00 59 L 22 200/63 H 97 10/30/20 12:30 58 L 21 180/64 H 97 10/30/20 12:00 62 20 179/61 H 97 10/30/20 11:30 56 L 21 189/64 H 97 10/30/20 11:00 55 L 21 173/54 H 97 10/30/20 10:31 55 L 18 179/66 H 98 10/30/20 09:49 57 L 59 L 20 201/63 H 99 10/30/20 09:23 36.3 C L 73 18 208/71 H 98 Laboratory Results Short CBC 10/30/20 Range/Units 09:51 WBC 7.87 (4.8-10.8) K/uL Hgb 12.5 (12.0-16.0) g/dL Hct 37.6 (37-47) % Plt Count 314 (130-400) K/uL BMP 10/30/20 09:51 Sodium 140 Potassium 4.6 Chloride 109 H Carbon Dioxide 24 BUN 20 H Creatinine 1.13 Glucose 136 H Calcium 9.3 Cardiac Enzymes 10/30/20 Range/Units 09:51 Troponin I < 0.015 (0-0.045) ng/ml Liver Function 10/30/20 Range/Units 09:51 Total Bilirubin 0.4 (0.2-1) mg/dl AST 25 (15-37) U/L ALT 21 (12-78) U/L Alkaline Phosphatase 60 (45-117) U/L Albumin 4.0 (3.4-5.0) gm/dl Diagnostic Findings CXR IMPRESSION: 1. No acute process. 2. Hiatal hernia. Code Status & VTE Plan Code Status Patient is a full code as per my discussion with her. VTE Prophylaxis Plan VTE Prophylaxis will be ordered: Yes Supervising Physician Co-Signing Physician Notes Pt seen and examined by me, care coordinated with KURTIS River, pls refer to her note above for further detail. Pt is an 85 y/o female with hx of branch vessel CAD, longstanding HTN, asthma, DM type II, and other problems listed below who presents with chest discomfort and headache.In the ED found hypertensive BP 208/71, EKG unremarkable, troponin negative. Received nitro which helped her symptoms of CP and MICHAEL. Denies unilateral weakness, numbness, tingling, facial droop. No difficulty with speech or understanding. Currently patient is still in bed, in no acute distress, reports some posterior headache, chest pain resolved. She is alert and oriented and answering questions appropriately. Lungs are clear to auscultation b/l w/o any wheezing, rhonchi or crackles. Heart sounds regular. Abdomen soft, nontender, nondistended. No lower extremity edema noted. She moves all 4 extremities spontaneously without difficulty. Skin is warm, dry. Echo ordered, CT head ordered, blood pressure now improved after treatment in the ED. Patient is currently on 4 different medications for blood pressure, will add amlodipine, after discussion with cardiology. Hydralazine increased to 50 3 times daily. Continue to closely monitor. Dallas Yan MD
--- NOTE | 2020-10-30 17:07 | CT Scan Report ---
HEAD CT NONCONTRAST CT DOSE: 773.57 mGy.cm HISTORY: headache TECHNIQUE: Multiaxial CT images of the head were performed without the use of intravenous contrast. A utomated exposure control was utilized for this study. A dose lowering technique was utilized adheri ng to the principles of ALARA. Comparison: 06/06/2016. Findings: The paranasal sinuses and mastoid air cells are clear. The calvarium and skull base are int act. The ventricles and sulci are within normal limits. There is no mass, hematoma, midline shift, or acute infarct. Impression: No acute intracranial abnormality. ACT 112: Negative or not required by law. Electronically signed by: Naveed Mcnally M.D. 10/30/2020 5:05 PM
[2020-10-30] MEDS ORDERED: CARBOHYDRATES FOR HYPOGLYCEMIA PO PRN (20:03)
[2020-10-30] MEDS ORDERED: GLUCOSE 40% GEL 15 GM TUBE PO PRN (20:03)
[2020-10-30] MEDS ORDERED: ACETAMINOPHEN 325 MG TAB PO PRN (20:03)
[2020-10-30] MEDS ORDERED: GLUCOSE 10 TABS/TUBE PO PRN (20:03)
[2020-10-30] MEDS ORDERED: GLUCAGON FOR INJ 1 MG VIAL SQ PRN (20:03)
[2020-10-30] MEDS ORDERED: DEXTROSE 50% 50 ML SYRINGE IV PRN (20:03)
[2020-10-30] MEDS ORDERED: hydrALAZINE TAB 50 MG TAB PO SCH (21:00)
[2020-10-30] MEDS ORDERED: ATORVASTATIN 20 MG TAB PO SCH (21:00)
[2020-10-30] MEDS ORDERED: DOCUSATE SODIUM 100 MG CAP PO SCH (21:00)
[2020-10-30] MEDS ORDERED: METOPROLOL SUCC 25MG EXT REL TAB PO SCH (21:00)
[2020-10-30] MEDS ORDERED: BRIMONIDINE TART 0.2% OP SOLN PER DROP CHARGE OPB SCH (21:00)
[2020-10-30] MEDS: INSULIN ASPART 100 UNITS/ML 3 ML PEN SC SCH (22:24)
[2020-10-30] MEDS: hydrALAZINE TAB 50 MG TAB PO SCH (22:28)
[2020-10-30] MEDS: ISOSORBIDE MONO EXTENDED REL 30 MG TABCR PO SCH (23:36)
[2020-10-31] MEDS ORDERED: MELATONIN 3 MG TAB PO PRN (00:15)
[2020-10-31] MEDS: BRIMONIDINE TARTRATE 0.2% 5ML OP SCH ×3 (00:31→14:38)
[2020-10-31] MEDS ORDERED: MELATONIN 3 MG TAB PO ONE (01:09)
[2020-10-31 06:20] LABS: Hemoglobin 11.5 g/dL (12.0-16.0); Mean Corpuscular Hemoglobin 30.5 pg (25-34); Mean Corpuscular Hgb Conc 32.9 g/dL (32-36); Mean Corpuscular Volume 92.8 fL (80-100); Mean Platelet Volume 9.8 fL (7.4-10.4); Platelet Count 302 K/uL (130-400); RDW Coefficient of Variation 13.3 % (11.5-14.5); RDW Standard Deviation 45.2 fL (36.4-46.3); Red Blood Count 3.77 M/uL (4.2-5.4); White Blood Count 7.53 K/uL (4.8-10.8)
[2020-10-31 06:36] LABS: Estimated Average Glucose 146 mg/dl; Hemoglobin A1C 6.7 % (4.5-5.6)
[2020-10-31 06:46] LABS: BUN Creatinine Ratio 18.6 (10-20); Calcium 8.8 mg/dl (8.5-10.1); Creatinine Clr Calc Pharmacy 26.9 ml/min; Est GFR (African American) 55.8; Est GFR (Non-African American) 48.2
[2020-10-31] MEDS ORDERED: PSYLLIUM 58.6% POWDER PACKET PO SCH (09:00)
[2020-10-31] MEDS ORDERED: SERTRALINE HCL 50 MG TABLET PO SCH (09:00)
[2020-10-31] MEDS ORDERED: ASPIRIN 81 MG ECTAB PO SCH (09:00)
[2020-10-31] MEDS ORDERED: CHOLECALCIFEROL 1,000 UNITS 25 MCG TAB PO SCH (09:00)
[2020-10-31] MEDS ORDERED: amLODIPine BESYLATE 5 MG TAB PO SCH (09:00)
[2020-10-31] MEDS ORDERED: CALCIUM CARBONATE 500 MG CHEWABLE TAB PO SCH (09:00)
[2020-10-31] MEDS ORDERED: hydrALAZINE HCL 25 MG TAB PO SCH (09:00)
[2020-10-31] MEDS: ISOSORBIDE MONO EXTENDED REL 30 MG TABCR PO SCH (09:21)
[2020-10-31] MEDS: hydrALAZINE TAB 50 MG TAB PO SCH ×2 (09:21→14:38)
[2020-10-31] MEDS: INSULIN ASPART 100 UNITS/ML 3 ML PEN SC SCH ×3 (09:26→17:25)
--- NOTE | 2020-10-31 09:34 | Cardiology Progress Note ---
Date of Service October 31, 2020 Assessment & Plan (1) Hypertensive urgency: (2) CAD (coronary artery disease): (3) Diabetes mellitus, type 2: (4) Asthma: BP trending down after titration of hydralazine to 50 mg TID and addition of amlodipine 5 mg. Patient is currently without symptoms. Cardiac enzymes remained unremarkable. Echo results are pending. BP borderline elevated this morning, prior to AM meds. Recheck BP 2 hours after AM meds. As long as BP has improved and she remains asymptomatic, anticipate discharge later today. Case discussed with Dr. Sullivan. Will need 2-4 week cardiology f/u upon discharge. Patient prefers [place] office. Typically follows with LISANDRO Rodriguez and Dr. Akers. Admission and Anticipated Discharge Date Admission Date: October 30, 2020 Subjective Patient resting in bed comfortably today. Denies recurrent chest tightness/burning sensation. No recurrent headaches. No dizziness or lightheadedness. BP trending down last evening after titration in meds. Borderline elevated this morning, but reading was taken before AM meds. She is eager for discharge today. Review of Systems Review of Systems: All systems reviewed & are unremarkable except as noted in HPI & below Physical Exam Physical Exam: General: Awake, alert and oriented x 3. No acute distress. HEENT: Normocephalic, atraumatic. Pupils equal, round and reactive to light and accommodation. Extraocular muscles are intact. Anicteric sclera. Moist mucous membranes. Neck: No JVD. No bruit. Cardiovascular: Regular. Positive S-4. Normal S-1 and S-2. No S-3. 3/6 mid to late systolic ejection murmur, greatest at the right sternal border, second intercostal space with radiation to the bilateral carotids. No rubs. Pulmonary: Clear to auscultation bilaterally. No rales, rhonchi, or wheezing. Abdomen: Bowel sounds x 4, soft. No rebound, guarding or tenderness. No organomegaly. Extremities: No clubbing, cyanosis or edema. +2 pedal pulses bilaterally. Skin: Warm and dry. Results & Data ([facility]) Vital Signs (Past 12 Hours) Vital Signs Temp Pulse Pulse Pulse Resp BP BP 10/31/20 07:32 36.6 C 59 L 18 161/45 H 10/31/20 07:00 53 L 03/24/21 04:13 36.5 C 54 L 18 112/55 L 10/31/20 01:25 56 L 10/31/20 00:35 36.9 C 56 L 20 150/62 H 10/30/20 22:57 36.7 C 60 18 139/73 Pulse Ox 10/31/20 07:32 97 10/31/20 07:00 10/31/20 04:13 97 10/31/20 01:25 10/31/20 00:35 96 10/30/20 22:57 96 Laboratory Results 10/31/20 10/31/20 10/31/20 Range/Units 07:31 06:04 06:04 WBC (4.8-10.8) K/uL RBC (4.2-5.4) M/uL Hgb (12.0-16.0) g/dL Hct (37-47) % MCV (80-100) fL MCH (25-34) pg MCHC (32-36) g/dL RDW Std Deviation (36.4-46.3) fL RDW Coeff of Don (11.5-14.5) % Plt Count (130-400) K/uL MPV (7.4-10.4) fL Immature Gran % (Auto) % Neut % (Auto) % Lymph % (Auto) % Rolette % (Auto) % Eos % (Auto) % Baso % (Auto) % Neut # (Auto) (1.4-6.5) K/uL Lymph # (Auto) (1.2-3.4) K/uL Rolette # (Auto) (0.11-0.59) K/uL Eos # (Auto) (0-0.5) K/uL Baso # (Auto) (0-0.2) K/uL Immature Gran # (Auto) (0.00-0.02) K/uL PT (9.0-12.0) Seconds INR (0.9-1.1) APTT (21.0-31.0) Seconds PTT Ratio Sodium 141 (136-145) mmol/L Potassium 5.0 (3.5-5.1) mmol/L Chloride 113 H (98-107) mmol/L Carbon Dioxide 24 (21-32) mmol/L Anion Gap 4.0 (3-11) BUN 20 H (7-18) mg/dl Creatinine 1.06 (0.6-1.2) mg/dl Est Cr Clr Drug Dosing 26.9 Est GFR ( Amer) 55.8 Est GFR (Non-Af Amer) 48.2 BUN/Creatinine Ratio 18.6 (10-20) Glucose 103 H (70-99) mg/dl POC Glucose 106 H (70-99) mg/dl Estimat Average Glucose 146 mg/dl Hemoglobin A1c 6.7 H (4.5-5.6) % Calcium 8.8 (8.5-10.1) mg/dl Total Bilirubin (0.2-1) mg/dl AST (15-37) U/L ALT (12-78) U/L Alkaline Phosphatase (45-117) U/L Troponin I (0-0.045) ng/ml Total Protein (6.4-8.2) gm/dl Albumin (3.4-5.0) gm/dl Globulin (2.5-4.0) gm/dl Albumin/Globulin Ratio (0.9-2) Lipase (73-393) U/L COVID-19 Eval Order SARS-CoV-2 (PCR) (Negative) Influenza Type A (PCR) (Neg) Influenza Type B (PCR) (Neg) RSV (RT-PCR) (Neg) 10/31/20 10/30/20 10/30/20 Range/Units 06:04 23:14 19:38 WBC 7.53 (4.8-10.8) K/uL RBC 3.77 L (4.2-5.4) M/uL Hgb 11.5 L (12.0-16.0) g/dL Hct 35.0 L (37-47) % MCV 92.8 (80-100) fL MCH 30.5 (25-34) pg MCHC 32.9 (32-36) g/dL RDW Std Deviation 45.2 (36.4-46.3) fL RDW Coeff of Don 13.3 (11.5-14.5) % Plt Count 302 (130-400) K/uL MPV 9.8 (7.4-10.4) fL Immature Gran % (Auto) % Neut % (Auto) % Lymph % (Auto) % Rolette % (Auto) % Eos % (Auto) % Baso % (Auto) % Neut # (Auto) (1.4-6.5) K/uL Lymph # (Auto) (1.2-3.4) K/uL Rolette # (Auto) (0.11-0.59) K/uL Eos # (Auto) (0-0.5) K/uL Baso # (Auto) (0-0.2) K/uL Immature Gran # (Auto) (0.00-0.02) K/uL PT (9.0-12.0) Seconds INR (0.9-1.1) APTT (21.0-31.0) Seconds PTT Ratio Sodium (136-145) mmol/L Potassium (3.5-5.1) mmol/L Chloride (98-107) mmol/L Carbon Dioxide (21-32) mmol/L Anion Gap (3-11) BUN (7-18) mg/dl Creatinine (0.6-1.2) mg/dl Est Cr Clr Drug Dosing Est GFR ( Amer) Est GFR (Non-Af Amer) BUN/Creatinine Ratio (10-20) Glucose (70-99) mg/dl POC Glucose 102 H (70-99) mg/dl Estimat Average Glucose mg/dl Hemoglobin A1c (4.5-5.6) % Calcium (8.5-10.1) mg/dl Total Bilirubin (0.2-1) mg/dl AST (15-37) U/L ALT (12-78) U/L Alkaline Phosphatase (45-117) U/L Troponin I 0.015 (0-0.045) ng/ml Total Protein (6.4-8.2) gm/dl Albumin (3.4-5.0) gm/dl Globulin (2.5-4.0) gm/dl Albumin/Globulin Ratio (0.9-2) Lipase (73-393) U/L COVID-19 Eval Order SARS-CoV-2 (PCR) (Negative) Influenza Type A (PCR) (Neg) Influenza Type B (PCR) (Neg) RSV (RT-PCR) (Neg) 10/30/20 10/30/20 10/30/20 Range/Units 17:27 13:40 13:40 WBC (4.8-10.8) K/uL RBC (4.2-5.4) M/uL Hgb (12.0-16.0) g/dL Hct (37-47) % MCV (80-100) fL MCH (25-34) pg MCHC (32-36) g/dL RDW Std Deviation (36.4-46.3) fL RDW Coeff of Don (11.5-14.5) % Plt Count (130-400) K/uL MPV (7.4-10.4) fL Immature Gran % (Auto) % Neut % (Auto) % Lymph % (Auto) % Rolette % (Auto) % Eos % (Auto) % Baso % (Auto) % Neut # (Auto) (1.4-6.5) K/uL Lymph # (Auto) (1.2-3.4) K/uL Rolette # (Auto) (0.11-0.59) K/uL Eos # (Auto) (0-0.5) K/uL Baso # (Auto) (0-0.2) K/uL Immature Gran # (Auto) (0.00-0.02) K/uL PT (9.0-12.0) Seconds INR (0.9-1.1) APTT (21.0-31.0) Seconds PTT Ratio Sodium (136-145) mmol/L Potassium (3.5-5.1) mmol/L Chloride (98-107) mmol/L Carbon Dioxide (21-32) mmol/L Anion Gap (3-11) BUN (7-18) mg/dl Creatinine (0.6-1.2) mg/dl Est Cr Clr Drug Dosing Est GFR ( Amer) Est GFR (Non-Af Amer) BUN/Creatinine Ratio (10-20) Glucose (70-99) mg/dl POC Glucose (70-99) mg/dl Estimat Average Glucose mg/dl Hemoglobin A1c (4.5-5.6) % Calcium (8.5-10.1) mg/dl Total Bilirubin (0.2-1) mg/dl AST (15-37) U/L ALT (12-78) U/L Alkaline Phosphatase (45-117) U/L Troponin I < 0.015 (0-0.045) ng/ml Total Protein (6.4-8.2) gm/dl Albumin (3.4-5.0) gm/dl Globulin (2.5-4.0) gm/dl Albumin/Globulin Ratio (0.9-2) Lipase (73-393) U/L COVID-19 Eval Order [facility]FluRsv at [facility] SARS-CoV-2 (PCR) NEGATIVE (Negative) Influenza Type A (PCR) Negative (Neg) Influenza Type B (PCR) Negative (Neg) RSV (RT-PCR) Negative (Neg) 10/30/20 10/30/20 10/30/20 Range/Units 09:51 09:51 09:51 WBC 7.87 (4.8-10.8) K/uL RBC 4.01 L (4.2-5.4) M/uL Hgb 12.5 (12.0-16.0) g/dL Hct 37.6 (37-47) % MCV 93.8 (80-100) fL MCH 31.2 (25-34) pg MCHC 33.2 (32-36) g/dL RDW Std Deviation 44.7 (36.4-46.3) fL RDW Coeff of Don 13.0 (11.5-14.5) % Plt Count 314 (130-400) K/uL MPV 10.1 (7.4-10.4) fL Immature Gran % (Auto) 0.1 % Neut % (Auto) 73.1 % Lymph % (Auto) 17.7 % Rolette % (Auto) 7.5 % Eos % (Auto) 0.8 % Baso % (Auto) 0.8 % Neut # (Auto) 5.76 (1.4-6.5) K/uL Lymph # (Auto) 1.39 (1.2-3.4) K/uL Rolette # (Auto) 0.59 (0.11-0.59) K/uL Eos # (Auto) 0.06 (0-0.5) K/uL Baso # (Auto) 0.06 (0-0.2) K/uL Immature Gran # (Auto) 0.01 (0.00-0.02) K/uL PT 10.0 (9.0-12.0) Seconds INR 1.0 (0.9-1.1) APTT 22.2 (21.0-31.0) Seconds PTT Ratio 0.8 Sodium 140 (136-145) mmol/L Potassium 4.6 (3.5-5.1) mmol/L Chloride 109 H (98-107) mmol/L Carbon Dioxide 24 (21-32) mmol/L Anion Gap 6.0 (3-11) BUN 20 H (7-18) mg/dl Creatinine 1.13 (0.6-1.2) mg/dl Est Cr Clr Drug Dosing Not Reportable Est GFR ( Amer) 51.7 Est GFR (Non-Af Amer) 44.6 BUN/Creatinine Ratio 18.0 (10-20) Glucose 136 H (70-99) mg/dl POC Glucose (70-99) mg/dl Estimat Average Glucose mg/dl Hemoglobin A1c (4.5-5.6) % Calcium 9.3 (8.5-10.1) mg/dl Total Bilirubin 0.4 (0.2-1) mg/dl AST 25 (15-37) U/L ALT 21 (12-78) U/L Alkaline Phosphatase 60 (45-117) U/L Troponin I < 0.015 (0-0.045) ng/ml Total Protein 7.6 (6.4-8.2) gm/dl Albumin 4.0 (3.4-5.0) gm/dl Globulin 3.6 (2.5-4.0) gm/dl Albumin/Globulin Ratio 1.1 (0.9-2) Lipase 373 (73-393) U/L COVID-19 Eval Order SARS-CoV-2 (PCR) (Negative) Influenza Type A (PCR) (Neg) Influenza Type B (PCR) (Neg) RSV (RT-PCR) (Neg) Diagnostic Findings Telemetry reviewed - Normal sinus rhythm. No arrhythmias. Echo results pending Head CT - no acute process Medications Administered Current Inpatient Medications Acetaminophen (Acetaminophen 325 Mg Tab) 650 mg PO Q4H PRN PRN Reason: Pain or Fever Stop: 11/29/20 20:02 Amlodipine Besylate (Amlodipine Besylate 5 Mg Tab) 5 mg PO QAM WILLIAM Stop: 11/30/20 08:59 Last Admin: 10/31/20 08:40 Dose: 5 mg Documented by: Aspirin (Aspirin 81 Mg Ectab) 81 mg PO DAILY [facility] Stop: 11/30/20 08:59 Last Admin: 10/31/20 08:42 Dose: 81 mg Documented by: Atorvastatin Calcium (Atorvastatin 20 Mg Tab) 20 mg PO HS [facility] Stop: 11/29/20 20:59 Last Admin: 10/30/20 22:29 Dose: 20 mg Documented by: Brimonidine Tartrate (Brimonidine Tartrate 0.2% 5ml) 1 drops OP TID WILLIAM Stop: 11/29/20 20:59 Last Admin: 10/31/20 09:21 Dose: 1 drops Documented by: Calcium Carbonate (Calcium Carbonate 500 Mg Chewable Tab) 500 mg PO DAILY WILLIAM Stop: 11/30/20 08:59 Last Admin: 10/31/20 08:40 Dose: 500 mg Documented by: Dextrose (Dextrose 50% 50 Ml Syringe) 25 - 50 ml IV UD PRN; Protocol PRN Reason: Hypoglycemia Protocol Stop: 11/29/20 20:02 Docusate Sodium (Docusate Sodium 100 Mg Cap) 100 mg PO HS [facility] Stop: 11/29/20 20:59 Last Admin: 10/30/20 22:28 Dose: 100 mg Documented by: Glucagon (Glucagon For Inj 1 Mg Vial) 1 mg SQ UD PRN; Protocol PRN Reason: Hypoglycemia Protocol Stop: 11/29/20 20:02 Glucose (Glucose 10 Tabs/Tube) 4 - 8 tabs PO UD PRN; Protocol PRN Reason: Hypoglycemia Protocol Stop: 11/29/20 20:02 Glucose (Glucose 40% Gel 15 Gm Tube) 15 - 30 gm PO UD PRN; Protocol PRN Reason: Hypoglycemia Protocol Stop: 11/29/20 20:02 Hydralazine HCl (Hydralazine Tab 50 Mg Tab) 50 mg PO TID WILLIAM Stop: 11/29/20 20:59 Last Admin: 10/31/20 09:21 Dose: 50 mg Documented by: Insulin Aspart (Insulin Aspart 100 Units/Ml 3 Ml Pen) 0 units SC ACHS [facility] Stop: 11/29/20 20:02 Last Admin: 10/31/20 09:26 Dose: 1 units Documented by: Isosorbide Mononitrate (Isosorbide Rolette Extended Rel 30 Mg Tabcr) 30 mg PO BID WILLIAM Stop: 11/29/20 20:59 Last Admin: 10/31/20 09:21 Dose: 30 mg Documented by: Losartan Potassium (Losartan Potassium 50 Mg Tab) 100 mg PO QDL WILLIAM Stop: 11/30/20 11:29 Melatonin (Melatonin 3 Mg Tab) 9 mg PO HS PRN PRN Reason: Sleep Stop: 11/30/20 00:14 Metoprolol Succinate (Metoprolol Succ 25mg Ext Rel Tab) 12.5 mg PO HS WILLIAM Stop: 11/29/20 20:59 Last Admin: 10/30/20 22:29 Dose: 12.5 mg Documented by: Miscellaneous (Carbohydrates For Hypoglycemia ) 15 - 30 gm PO UD PRN PRN Reason: Hypoglycemia Protocol Stop: 11/29/20 20:02 Psyllium Hydrophilic Mucilloid (Psyllium 58.6% Powder Packet) 1 pkt PO DAILY WILLIAM Stop: 11/30/20 08:59 Last Admin: 10/31/20 08:40 Dose: 1 pkt Documented by: Sertraline HCl (Sertraline Hcl 50 Mg Tablet) 25 mg PO DAILY WILLIAM Stop: 11/30/20 08:59 Last Admin: 10/31/20 08:42 Dose: 25 mg Documented by: Vitamin D (Cholecalciferol 1,000 Units 25 Mcg Tab) 2,000 units PO QAM WILLIAM Stop: 11/30/20 08:59 Last Admin: 10/31/20 08:41 Dose: 2,000 units Documented by:
[2020-10-31] MEDS ORDERED: LOSARTAN POTASSIUM 50 MG TAB PO SCH (11:30)
--- NOTE | 2020-10-31 13:41 | Hospitalist Progress Note ---
Date of Service October 31, 2020 Assessment & Plan (1) Hypertensive urgency: Hypertensive urgency Atypical Chest Pain DD: GERD CT head:No acute intracranial abnormality. Troponin negative EKG showed no signs of acute ischemia ECHO:pending Continue amlodipine 5 mg daily, hydralazine 50 mg 3 times daily, Imdur, losartan 100 mg daily Also on metoprolol 12.5 mg daily Appreciate cardiology input Blood pressure improved Currently patient reluctant to be started on PPI/Pepcid Needs follow-up with cardiology upon discharge (2) CAD (coronary artery disease): Continue aspirin, statin, beta-louisa, nitrate (3) Diabetes mellitus, type 2: HbA1c 6.7 Continue to hold p.o. medication Continue insulin therapy while hospitalized (4) Asthma: Stable No signs of exacerbation Continue home inhalers (5) DVT prophylaxis: SCDs Admission and Anticipated Discharge Date Admission Date: October 30, 2020 Subjective Patient is seen and examined at bedside States doing well this morning Chest tightness/burning sensation completely resolved Denies shortness of breath, dizziness, nausea, abdominal pain Eager to get discharged Offers no other complaints Review of Systems Review of Systems: All systems reviewed & are unremarkable except as noted in HPI & below Physical Exam 2 Physical Exam: Physical Exam: Vitals signs as noted above General Appearance:Moderately built and nourished, no apparent distress Head: normocephalic, Atraumatic Eyes: normal inspection, EOMI Neck: supple, Trachea midline Respiratory/Chest: Normal breath sounds, CTA, No accessory muscle use Cardiovascular: S1, S2, + murmur Abdomen/GI:Soft, Non tender, Bowel sounds present Extremities/Musculoskelatal:normal inspection, no edema Neurologic/Psych:AAOX3, grossly no focal neurological deficits Skin: normal color, warm Results & Data Results & Data ([facility]) Vital Signs (Past 12 Hours) Vital Signs Temp Pulse Pulse Resp BP Pulse Ox 10/31/20 11:39 36.5 C 57 L 20 154/56 H 97 10/31/20 07:32 36.6 C 59 L 18 161/45 H 97 10/31/20 07:00 53 L 10/31/20 04:13 36.5 C 54 L 18 112/55 L 97 Laboratory Results Short CBC 10/31/20 Range/Units 06:04 WBC 7.53 (4.8-10.8) K/uL Hgb 11.5 L (12.0-16.0) g/dL Hct 35.0 L (37-47) % Plt Count 302 (130-400) K/uL BMP 10/31/20 06:04 Sodium 141 Potassium 5.0 Chloride 113 H Carbon Dioxide 24 BUN 20 H Creatinine 1.06 Glucose 103 H Calcium 8.8 Cardiac Enzymes 10/30/20 10/30/20 Range/Units 17:27 23:14 Troponin I < 0.015 0.015 (0-0.045) ng/ml
--- NOTE | 2020-10-31 13:50 | Electrocardiogram Report ---
Test Reason : Blood Pressure : / mmHG Vent. Rate : 056 BPM Atrial Rate : 056 BPM P-R Int : 150 ms QRS Dur : 068 ms QT Int : 438 ms P-R-T Axes : 066 032 056 degrees QTc Int : 422 ms Sinus bradycardia Possible Left atrial enlargement Borderline ECG When compared with ECG of 30-OCT-2020 09:43, No significant change was found Confirmed by González Goldberg ([id number]) on 10/31/2020 1:49:50 PM Referred By: REFERRED SELF Confirmed By:Shiva Goldberg
--- NOTE | 2020-10-31 17:31 | Discharge Summary ---
Date of Service October 31, 2020 Admission HPI Per Admitting Provider 85-year-old female with PMH branch vessel CAD, longstanding HTN, asthma, DM type II, and other problems listed below who presents to the ED for evaluation of chest discomfort and headache. Patient reports she closely self monitors her blood pressure at home. Reports that last evening her systolic blood pressure was 190. She also reports experiencing a burning in her chest at that time. She denies chest pain or chest pressure. Patient ports she was able to sleep throughout the night without difficulty. This morning whenever she awoke she reports persistent chest burning and she had also developed a headache. She rechecked her blood pressure and it was again 190. She then presented to the ED for further evaluation. She reports a moderately severe frontal headache. However has had some relief since receiving nitroglycerin in the ED. Denies unilateral weakness, numbness, tingling, facial droop. No difficulty with speech or understanding. Patient reports chronic exertional shortness of breath which is unchanged from baseline. No lightheadedness, dizziness, diaphoresis, syncopal events. Denies abdominal pain, nausea, vomiting, diarrhea. No other recent illnesses, fevers, chills. She denies urinary symptoms. On presentation to the ED, BP 208/71. She received sublingual nitroglycerin and 0.5 nitroglycerin topical paste. She reports resolution in her chest discomfort/burning and headache has eased however not resolved. Initial troponin is negative, EKG without acute ST changes. Patient was also given a full dose aspirin. Admission Exam Per Admitting Provider Physical Exam Constitutional: WD/WN, vitals as above Eyes: PERRL, conjunctivae normal, anicteric sclerae ENMT: external ear and nose normal, oropharynx normal Respiratory: normal respiratory effort, lungs clear to auscultation Cardiovascular: Rate/Rhythm: regular rate and regular rhythm Vessels: normal peripheral pulses Extremities: no edema Gastrointestinal (Abdomen): normal bowel sounds, soft, nontender, no hepatosplenomegaly Musculoskeletal: no cyanosis or clubbing, extremities motor strength 5/5 Skin: no rashes, warm and dry Neurologic: PERRL, EOMI, accommodation nl, no face palsy, no dysarthria no focal motor deficits Psychiatric: A+Ox3, euthymic affect Principal Diagnosis Hypertensive urgency Atypical chest pain Discharge Data Allergies Allergy/AdvReac Type Severity Reaction Status Date / Time Beta-Blockers Allergy Mild MAKES Verified 10/30/20 10:58 (Beta-Adrenergic Bloc BREATHING/ASTHMA WORSE-LOW PULSE animal dander Allergy Unknown INCREASES Verified 10/30/20 10:58 HER ASTHMA SYMPTOMS Consultations 10/30/20 14:13 ED Decision to Admit Stat 10/30/20 20:03 Consult Cardiology Routine Procedures Performed CT head:No acute intracranial abnormality. Ordered Studies 10/30/20 16:13 CT head/brain wo con Routine Hospital Course (1) Hypertensive urgency: Hypertensive urgency Atypical Chest Pain DD: GERD CT head:No acute intracranial abnormality. Troponin negative EKG showed no signs of acute ischemia ECHO: Normal LV chamber size with moderate concentric LVH. Normal LV systolic function, EF 60 to 65%. No segmental left ventricular wall motion abnormalities noted. Grade 1 diastolic dysfunction. Aortic Valve sclerosis mild, without significant aortic valvular stenosis. Continue amlodipine 5 mg daily, hydralazine 50 mg 3 times daily, Imdur, losartan 100 mg daily Also on metoprolol 12.5 mg daily Appreciate cardiology input Blood pressure improved Currently patient reluctant to be started on PPI Continue Pepcid PRN Needs follow-up with cardiology upon discharge (2) CAD (coronary artery disease): Continue aspirin, statin, beta-louisa, nitrate (3) Diabetes mellitus, type 2: HbA1c 6.7 Continue to hold p.o. medication Continue insulin therapy while hospitalized (4) Asthma: Stable No signs of exacerbation Continue home inhalers (5) DVT prophylaxis: SCDs Total Time Total Time Spent Total Time Spent (In Minutes): 38 minutes Discharge Plan Discharge Items Patient Disposition: Home - Self-Care Reason For Visit: BURNING IN CHEST,HYPERTENSION Discharge Diagnosis: Hypertensive urgency Atypical chest pain Activity: Per Instructions section Exercise/Sports: Gradually increase as tolerated Non-emergency contact: Primary Care Provider and Mess Cook Call non-emergency contact if: you have any medication questions, your symptoms worsen, your pain is not controlled, your pain is concerning for you and you have a fever Follow-up/Referrals: Ayana Bergeron [Primary Care Provider] - Diet: Carb Consistent or DM2 and Heart Healthy Addtl Attending Provider Instructions: Follow-up with your primary care physician Dr. Jennifer Bergeron in 1 week upon discharge Follow-up with your color dipper Dr. Sullivan in 2 to 4 weeks Take medications regularly as prescribed Seek immediate medical attention if your symptoms reoccur or worsen Pending Studies at Discharge: No Stand-Alone Forms: [facility] [employer], Smoking Cessation Medications and DC Order Prescriptions: New amlodipine [Norvasc] 5 mg Tablet 5 mg PO QAM Qty: 30 RF: 0 hydralazine 50 mg Tablet 50 mg PO TID Qty: 90 RF: 0 Continued atorvastatin 20 mg Tablet 20 mg PO HS RF: 0 isosorbide mononitrate 30 mg Tablet Extended Release 24 Hr 30 mg PO BID RF: 0 docusate sodium 100 mg Capsule 100 mg PO HS RF: 0 losartan 100 mg Tablet 100 mg PO QDL RF: 0 cholecalciferol (vitamin D3) [Vitamin D3] 2,000 unit Capsule 2,000 unit PO QAM RF: 0 psyllium husk [Metamucil] 0.4 gram Capsule 0.4 g PO DAILY RF: 0 metformin 500 mg Tablet 500 mg PO BID RF: 0 metoprolol succinate 25 mg Capsule,Sprinkle,Er 24hr 12.5 mg PO HS RF: 0 fluticasone propionate [Flonase Allergy Relief] 50 mcg/actuation [place],Suspension 2 spray INTRANASAL HS RF: 0 Breo Ellipta 100-25 mcg/dose Blister With Device 1 inh INHALATION 2XWK RF: 0 calcium carbonate [Tums E-X] 300 mg (750 mg) Tablet,Chewable 300 mg PO DAILY RF: 0 famotidine [Pepcid] 20 mg Tablet 20 mg PO DAILY PRN (Reason: Dyspepsia) RF: 0 brimonidine 0.2 % Drops 1 drp OPB TID RF: 0 sertraline 25 mg Tablet 25 mg PO DAILY RF: 0 melatonin 10 mg Tablet 10 mg PO HS RF: 0 aspirin [Aspirin Low Dose] 81 mg Tablet,Delayed Release (Dr/Ec) 81 mg PO DAILY RF: 0 Discontinued hydralazine 50 mg Tablet 25 mg PO DAILY RF: 0 hydralazine 50 mg Tablet 50 mg PO BID RF: 0 Discharge Orders: Discharge Order (Routine); Ordered 10/31/20 Ordered By: Bola Jamison/Other Patient Handouts: Managing Type 2 Diabetes, Managing Diabetes: The A1C Test Admission Data Admit Date/Time: 10/30/20 19:57 Attending Provider: Bola Telles Admit Provider: Davon Yan Primary Care Provider: Ayana Bergeron Other Providers: Davon Yan ; Chin Sullivan
== END 2020-10-31 17:53 | disposition home or self-care (01) ==
LOC: ED 09:15 → 2S 19:55 → EDINP 19:57 → SUATTDRO 19:57 → INTOOBSV 19:57 → 2S 10-31 00:38

== ENCOUNTER 2024-08-05 18:38 | Observation (INO) ==
--- NOTE | 2024-08-05 19:15 | Emergency Department Note ---
Impression & Plan Complex laceration of scalp, Fall from standing, Hyperglycemia, Elevated lipase, Non-ST elevation IA (NSTEMI) ED Provider Note HISTORY OF PRESENT ILLNESS: Patient is an 89-year-old female presenting with a head wound after a fall. Patient was alerted as a trauma through triage. Patient reports she was walking in her bedroom when she tripped over corner of her comforter and fell backwards, striking the back of her head on a nightstand. She states she had immediate bleeding to the back of her head. Denies loss of consciousness. She is not on any anticoagulation. She denies any headache or changes in vision. Denies any numbness or tingling or weakness in her extremities. Denies any chest pain, shortness of breath or lightheadedness prior to the fall. Reports she just fell and lost her footing. She denies any abdominal pain, nausea or vomiting. ROS: as above PHYSICAL EXAM: Vitals: See nursing chart. Constitutional: GCS 15. HENT: Head: 4.5 cm linear laceration to the right posterior parietal region with pulsatile blood from the wound. Mouth/Throat: Midface stable. No malocclusion. Eyes: EOMI. Pupils are 3 mm, round and reactive bilaterally. Nose: No nasal septal hematoma. No gross deformity. Neck: No midline C-spine tenderness. No step-offs. Cardiovascular: RRR. Pulses present in all 4 extremities. Pulmonary/Chest: BS equal bilaterally. No tenderness or ecchymosis. Abdomen: No tenderness or ecchymosis. Musculoskeletal: Pelvis: No instability. Back: No midline tenderness. No step-offs. Extremities: No gross deformities. No TTP. Skin: Laceration as above. Neuro: No focal neurological deficits. GCS as above. Psych: Normal mood and affect. MDM: - Vitals signs showed hypertension. - ABCs intact. Patient is profoundly hypertensive on arrival to the emergency department. - History obtained via patient. History as above. - Chronic conditions affecting care: HTN; CAD; DM-2; HLD - Differential diagnoses include, but are not limited to: Skull fracture; intracranial hemorrhage; cervical spine fracture; dysrhythmia; electrolyte abnormality - Order placed for continuous cardiac monitoring. At this time, monitor showed rate of 63 bpm with normal sinus rhythm, per my interpretation. - External medical records reviewed. Cardiology office visit note dated 02/04/2024 was reviewed. Patient has a history of CAD with mild to moderate atherosclerosis in 70-80% of the left circumflex. - EKG interpreted by myself showed normal sinus rhythm. Rate 70 bpm. QT 364. No acute ischemic changes. - Laboratory workup interpreted by myself showed normal WBC; chronic anemia (Hgb 10.8); normal PT/INR; stable electrolytes; hyperglycemia (glucose 318); slightly elevated troponin (14.1); elevated lipase (111) - CT head wo contrast negative for acute intracranial pathology. - CT cervical spine without contrast negative for acute abnormality. - CT face wo contrast negative for acute pathology - Patient's scalp laceration had a pulsatile bleeder. It was injected with 3 cc of lidocaine with epi with successful tamponade of the bleed. Laceration was repaired with lilo by myself. Please see procedure note below. - UA negative for infection - Patient tolerated oral intake in the emergency department without any vomiting and ambulated without any gait instability. - Patient has no reproducible chest pain or abdominal pain on examination. So though CT chest/abdomen/pelvis was considered, was not obtained. - Patient's glucose improved in the emergency department on reassessment. - Discussed results with the patient. Recommended close follow-up with her primary care provider. Instructed that lilo need to be removed in the 10 days. - Had initially planned to discharge the patient, but repeat troponin level elevated to 45.0. - Patient has no complaints of chest pain in the emergency department. She is currently complaining of a headache. Given 1 g IV Tylenol. - Discussion was had with continuous pillowcase cutter about patient's case and need for admission - Hospitalist, Dr. Israel, consulted for admission - [facility]. PROCEDURE: Laceration repair Location: Right posterior parietal region Total length: 4.5 cm Complexity: Complex (given the arterial bleed) Verbal consent was obtained after the risks and benefits were explained, including but not limited to bleeding, scarring, infection, pain, and bone/joint/nerve damage. At this time, the risks of the procedure are less than the risks of NOT performing the procedure. A time out was taken and the correct patient and site identified. The skin was prepped with soap and water, hydrogen peroxide and chlohexidine. The target area was anesthetized with 3 ml of 1% lidocaine with epinephrine. Copious irrigation was performed using soap and water. The wound was explored for foreign bodies and none found. Examination revealed a small bleeding blood vessels superficially on the right lateral portion of the wound. Debridement was not performed. The wound edges were approximated using 7 lilo. Hemostasis and excellent approximation was achieved. Antibacterial ointment and a sterile dressing applied. Detailed wound care instructions and signs and symptoms of infection reviewed with the patient and patient's family. No complications and the patient tolerated the procedure well. ASSESSMENT AND PLAN: Diagnosis: Fall from standing; complex scalp laceration; NSTEMI; elevated lipase; hyperglycemia Plan: Admit Past Med/Surg History Problem List (Updated 08/06/24 @ 00:01 by Mendy Collins MD) Non-ST elevation IA (NSTEMI) (Acute) Elevated lipase (Acute) Hyperglycemia (Acute) Fall from standing (Acute) Complex laceration of scalp (Acute) LVH (left ventricular hypertrophy) Hyperlipidemia Weight loss, unintentional Lung nodules Diabetes mellitus type 2, controlled (12/06/12) Asthma (12/06/12) Asthma STABLE WITH BREO 3X/WK. NO RESCUE INHALER USE. Diabetes mellitus, type 2 CAD (coronary artery disease) Per cardio 11/09/18 "branch vessel coronary artery disease with mild to moderate atherosclerosis in 70-80% narrowing of a small branch of the left circumflex." Cardiac cath 2017, no stents. Hypertensive urgency Hypertension Medical History (Updated 08/06/24 @ 00:01 by Mendy Collins MD) Hiatal hernia (12/06/12) Pancreatitis HX Osteoporosis Lyme disease TREATED-DX'D 4-5 YRS AGO Lung nodules UNDER OBSERVATION Osteoarthritis Hiatal hernia GERD (gastroesophageal reflux disease) Glaucoma Anxiety SOB (shortness of breath) on exertion Myocardial Infarction 11/2017 NSTEMI in the setting of hypertensive urgency, elevated HR. Hypertension Surgical History History of total left knee replacement History of laparotomy ECTOPIC History of esophagogastroduodenoscopy (EGD) WITH DILITATION Cancer BASAL CELL NECK REMOVAL History of cardiac cath 11/2017 for NSTEMI NO STENTS-[facility] Family History (Updated 10/30/20 @ 16:25 by KURTIS River) Aunt Family history of diabetes mellitus Father Hypertension Social History Smoking Status: Never smoker Second Hand Exposure: No; Do You Dip or Chew Tobacco: No; Hx Alcohol Use: No Hx Substance Use: No Preferred Language: Sinhala Communication Ability: Effective Air Brush Decorator Required: No Beliefs That Will Affect Care: None marital status: Current Living Situation: Spouse Feels Safe at Home: Yes Assistive Devices: Denture - Upper Allergies Allergies Allergy/AdvReac Type Severity Reaction Status Date / Time Beta-Blockers Allergy Mild MAKES Verified 02/04/24 10:24 (Beta-Adrenergic Bloc BREATHING/ASTHMA WORSE-LOW PULSE animal dander Allergy Unknown INCREASES Verified 02/04/24 10:24 HER ASTHMA SYMPTOMS Lisinopril TABS Allergy Mild Uncoded 02/04/24 10:24 Home Meds Home Medications Medication Instructions Recorded Confirmed cholecalciferol (vitamin D3) 50 2,000 unit PO QAM 11/11/18 02/04/24 mcg (2,000 unit) capsule (Vitamin D3) docusate sodium 100 mg capsule 100 mg PO HS 11/11/18 02/04/24 fluticasone furoate 100 1 inh inhalation 2XWK 11/11/18 02/04/24 mcg-vilanterol 25 mcg/dose inhalation powder (Breo Ellipta) fluticasone propionate 50 2 spray intranasal HS 11/11/18 02/04/24 mcg/actuation nasal spray,suspension (Flonase Allergy Relief) metoprolol succinate 25 mg capsule 12.5 mg PO HS 11/11/18 02/04/24 sprinkle, ext. release 24 hr psyllium husk 0.4 gram capsule 0.4 g PO DAILY 11/11/18 02/04/24 (Metamucil) aspirin 81 mg tablet,delayed 81 mg PO DAILY 10/30/20 02/04/24 release (Sandra Low Dose Aspirin) brimonidine 0.2 % eye drops 1 drp OPB TID 10/30/20 02/04/24 calcium carbonate (Tums E-X) 300 mg PO DAILY 10/30/20 02/04/24 melatonin 10 mg tablet 10 mg PO HS 10/30/20 02/04/24 atorvastatin 20 mg tablet 20 mg PO DAILY 05/12/22 02/04/24 gabapentin 100 mg capsule 100 mg PO DAILY 05/12/22 02/05/23 isosorbide mononitrate 30 mg 30 mg PO DAILY 05/12/22 02/04/24 tablet,extended release 24 hr acetaminophen 650 mg 650 mg PO Q12H PRN 02/04/24 02/04/24 tablet,extended release (Tylenol Arthritis Pain) losartan 100 mg tablet 25 mg PO DAILY 02/04/24 02/04/24 Previous Rx's Medication Instructions Recorded amlodipine 5 mg tablet (Norvasc) 5 mg PO QAM #30 tabs 10/31/20 Results & Data (ED) Vital Signs Vital Signs - 24 hr 08/05/24 18:39 08/05/24 18:47 08/05/24 18:47 Temperature Pulse Rate 107 H Pulse Rate [Right] 93 H Pulse Rate from SpO2 Sensor Pulse Rhythm [Right] Regular Pulse Strength [Right Carotid] Pulse Strength [Right] Respiratory Rate 24 Respiratory Effort / Characteristics Non-Labored Respiratory Depth Normal Respiratory Pattern Regular Blood Pressure Blood Pressure [Right Arm] 204/128 H Blood Pressure Mean Blood Pressure Mean [Right Arm] 153 Blood Pressure Position [Right Arm] Pulse Oximetry 97 Oxygen Delivery Method Room Air Oxygen Flow Rate Sepsis Recent Fever Within 48 Hours No Sepsis New/Unexplained Change in Mental Status No Sepsis Action Taken by Nursing No Action Required 08/05/24 19:00 08/05/24 19:01 08/05/24 19:01 Temperature 36.6 C Pulse Rate 81 78 Pulse Rate [Right] 70 Pulse Rate from SpO2 Sensor 81 Pulse Rhythm [Right] Pulse Strength [Right Carotid] Normal Pulse Strength [Right] Respiratory Rate 21 20 20 Respiratory Effort / Characteristics Non-Labored Spontaneous Respiratory Depth Normal Respiratory Pattern Regular Blood Pressure 155/65 H 155/65 H Blood Pressure [Right Arm] 155/65 H Blood Pressure Mean 95 Blood Pressure Mean [Right Arm] 95 Blood Pressure Position [Right Arm] Sitting Pulse Oximetry 97 97 155 H Oxygen Delivery Method Room Air Room Air Room Air Oxygen Flow Rate 0 Sepsis Recent Fever Within 48 Hours Sepsis New/Unexplained Change in Mental Status Sepsis Action Taken by Nursing 08/05/24 19:01 08/05/24 19:24 08/05/24 19:28 Temperature Pulse Rate 71 71 Pulse Rate [Right] Pulse Rate from SpO2 Sensor 71 Pulse Rhythm [Right] Pulse Strength [Right Carotid] Pulse Strength [Right] Respiratory Rate 20 18 Respiratory Effort / Characteristics Respiratory Depth Respiratory Pattern Blood Pressure 151/65 H Blood Pressure [Right Arm] Blood Pressure Mean 93 Blood Pressure Mean [Right Arm] Blood Pressure Position [Right Arm] Pulse Oximetry 97 97 97 Oxygen Delivery Method Room Air Room Air Room Air Oxygen Flow Rate Sepsis Recent Fever Within 48 Hours Sepsis New/Unexplained Change in Mental Status Sepsis Action Taken by Nursing 08/05/24 19:51 08/05/24 20:01 08/05/24 20:03 Temperature Pulse Rate 66 72 Pulse Rate [Right] 75 Pulse Rate from SpO2 Sensor 66 73 Pulse Rhythm [Right] Pulse Strength [Right Carotid] Pulse Strength [Right] Respiratory Rate 18 18 18 Respiratory Effort / Characteristics Non-Labored Spontaneous Respiratory Depth Normal Respiratory Pattern Regular Blood Pressure 149/58 H 146/63 H Blood Pressure [Right Arm] 146/63 H Blood Pressure Mean 88 90 Blood Pressure Mean [Right Arm] 90 Blood Pressure Position [Right Arm] Lying Pulse Oximetry 96 95 96 Oxygen Delivery Method Room Air Room Air Room Air Oxygen Flow Rate Sepsis Recent Fever Within 48 Hours Sepsis New/Unexplained Change in Mental Status Sepsis Action Taken by Nursing 08/05/24 20:36 08/05/24 20:38 08/05/24 21:06 Temperature Pulse Rate 64 Pulse Rate [Right] 62 Pulse Rate from SpO2 Sensor 64 Pulse Rhythm [Right] Regular Pulse Strength [Right Carotid] Pulse Strength [Right] Normal Respiratory Rate 20 16 22 Respiratory Effort / Characteristics Non-Labored Spontaneous Non-Labored Spontaneous Respiratory Depth Normal Normal Respiratory Pattern Regular Regular Blood Pressure 144/66 H Blood Pressure [Right Arm] 141/65 H Blood Pressure Mean 92 Blood Pressure Mean [Right Arm] 90 Blood Pressure Position [Right Arm] Sitting Pulse Oximetry 97 97 Oxygen Delivery Method Room Air Room Air Oxygen Flow Rate Sepsis Recent Fever Within 48 Hours Sepsis New/Unexplained Change in Mental Status Sepsis Action Taken by Nursing 08/05/24 22:00 08/05/24 22:39 08/05/24 23:00 Temperature Pulse Rate 60 Pulse Rate [Right] 68 63 Pulse Rate from SpO2 Sensor Pulse Rhythm [Right] Regular Pulse Strength [Right Carotid] Pulse Strength [Right] Normal Respiratory Rate 16 18 Respiratory Effort / Characteristics Non-Labored Spontaneous Respiratory Depth Normal Respiratory Pattern Regular Blood Pressure Blood Pressure [Right Arm] 139/70 Blood Pressure Mean Blood Pressure Mean [Right Arm] 93 Blood Pressure Position [Right Arm] Sitting Pulse Oximetry 96 97 Oxygen Delivery Method Room Air Room Air Oxygen Flow Rate Sepsis Recent Fever Within 48 Hours Sepsis New/Unexplained Change in Mental Status Sepsis Action Taken by Nursing 08/06/24 00:00 Temperature Pulse Rate Pulse Rate [Right] 68 Pulse Rate from SpO2 Sensor Pulse Rhythm [Right] Pulse Strength [Right Carotid] Pulse Strength [Right] Respiratory Rate 18 Respiratory Effort / Characteristics Respiratory Depth Respiratory Pattern Blood Pressure Blood Pressure [Right Arm] 186/69 H Blood Pressure Mean Blood Pressure Mean [Right Arm] 108 Blood Pressure Position [Right Arm] Pulse Oximetry 98 Oxygen Delivery Method Room Air Oxygen Flow Rate Sepsis Recent Fever Within 48 Hours Sepsis New/Unexplained Change in Mental Status Sepsis Action Taken by Nursing Laboratory Data 08/05/24 18:48 08/05/24 18:48 Lab Results 08/05/24 08/05/24 08/05/24 Range/Units 18:48 19:31 22:50 WBC 9.63 (4.8-10.8) K/ul RBC 3.57 L (4.20-5.40) M/uL Hgb 10.8 L (12.0-16.0) g/dl POC Hgb 11.2 L (12.0-16.0) g/dl Hct 32.7 L (37.0-47.0) % POC Hct 33 L (37-47) % MCV 91.6 (80.0-100.0) fL MCH 30.3 (25.0-34.0) pg MCHC 33.0 (32.0-36.0) g/dL RDW Std Deviation 40.8 (36.4-46.3) fL RDW Coeff of Don 12.1 (11.5-14.5) % Plt Count 331 (130-400) K/uL MPV 10.3 (9.4-12.4) fL Immature Gran % (Auto) 0.2 % Neut % (Auto) 60.4 % Lymph % (Auto) 25.0 % [place] % (Auto) 9.8 % Eos % (Auto) 3.3 % Baso % (Auto) 1.3 % Neut # (Auto) 5.81 (1.40-6.50) K/uL Lymph # (Auto) 2.41 (1.20-3.40) K/uL [place] # (Auto) 0.94 H (0.11-0.59) K/uL Eos # (Auto) 0.32 (0.00-0.50) K/uL Baso # (Auto) 0.13 (0.00-0.20) K/uL Immature Gran # (Auto) 0.02 (0.01-0.20) K/uL PT 10.3 (9.0-12.0) Seconds INR 0.9 (0.9-1.1) APTT 24 (21-31) Seconds PTT Ratio 0.9 POC Sodium 137 (135-144) mmol/L Sodium 136 (136-145) mmol/L POC Potassium 4.6 (3.3-5.0) mmol/L Potassium 4.6 (3.5-5.1) mmol/L POC Chloride 105 (101-112) mmol/L Chloride 105 (98-107) mmol/L Carbon Dioxide 23 (21-32) mmol/L POC Total CO2 23 L (24-31) mmol/L Anion Gap 8 (3-11) POC Anion Gap 14.0 L (16-25) mmol/L POC BUN 33 H (7-18) mg/dl BUN 31 H (6-23) mg/dl Creatinine 1.06 (0.6-1.2) mg/dl POC Creatinine 1.1 (0.6-1.3) mg/dl Est Cr Clr Drug Dosing Not Reportable eGFR 50.53 BUN/Creatinine Ratio 29.2 H (10-20) Glucose 318 H* (70-99(Fasting)) mg/dl POC Glucose 134 H (70-99) mg/dl POC Glucose (other) 308 H (70-99) mg/dl Calcium 9.1 (8.6-10.3) mg/dl POC Ioniz Calcium Fredy 1.18 (1.12-1.32) mmol/l Total Bilirubin 0.3 (0.2-1.0) mg/dl AST 41 H (13-39) U/L ALT 29 (7-52) U/L Alkaline Phosphatase 66 (34-104) U/L Troponin I High Sens 14.1 H (0-14) pg/ml Total Protein 7.0 (6.0-8.3) gm/dl Albumin 3.7 (3.4-5.0) gm/dl Globulin 3.3 (2.5-4.0) gm/dl Albumin/Globulin Ratio 1.1 (0.9-2) Lipase 111 H (11-82) U/L Urine Color Urine Appearance (Clear) Urine pH (4.5-7.5) Ur Specific [place] (1.000-1.030) Urine Protein (Negative) Urine Glucose (UA) (Negative) Urine Ketones (Negative) Urine Blood (Negative) Urine Nitrite (Negative) Urine Bilirubin (Negative) Urine Urobilinogen (Negative) Ur Leukocyte Esterase (Negative) Urine WBC (Auto) (0-5) /hpf Urine RBC (Auto) (0-2) /hpf U Hyaline Cast (Auto) (0-2) /lpf U Epithel Cells (Auto) (0-2) /hpf Urine Bacteria (Auto) (None Seen) Hyaline Casts (None Presnt) /lpf 08/05/24 08/05/24 Range/Units 22:52 Unknown WBC (4.8-10.8) K/ul RBC (4.20-5.40) M/uL Hgb (12.0-16.0) g/dl POC Hgb (12.0-16.0) g/dl Hct (37.0-47.0) % POC Hct (37-47) % MCV (80.0-100.0) fL MCH (25.0-34.0) pg MCHC (32.0-36.0) g/dL RDW Std Deviation (36.4-46.3) fL RDW Coeff of D[place] (11.5-14.5) % Plt Count (130-400) K/uL MPV (9.4-12.4) fL Immature Gran % (Auto) % Neut % (Auto) % Lymph % (Auto) % [place] % (Auto) % Eos % (Auto) % Baso % (Auto) % Neut # (Auto) (1.40-6.50) K/uL Lymph # (Auto) (1.20-3.40) K/uL [place] # (Auto) (0.11-0.59) K/uL Eos # (Auto) (0.00-0.50) K/uL Baso # (Auto) (0.00-0.20) K/uL Immature Gran # (Auto) (0.01-0.20) K/uL PT (9.0-12.0) Seconds INR (0.9-1.1) APTT (21-31) Seconds PTT Ratio POC Sodium (135-144) mmol/L Sodium (136-145) mmol/L POC Potassium (3.3-5.0) mmol/L Potassium (3.5-5.1) mmol/L POC Chloride (101-112) mmol/L Chloride (98-107) mmol/L Carbon Dioxide (21-32) mmol/L POC Total CO2 (24-31) mmol/L Anion Gap (3-11) POC Anion Gap (16-25) mmol/L POC BUN (7-18) mg/dl BUN (6-23) mg/dl Creatinine (0.6-1.2) mg/dl POC Creatinine (0.6-1.3) mg/dl Est Cr Clr Drug Dosing eGFR BUN/Creatinine Ratio (10-20) Glucose (70-99(Fasting)) mg/dl POC Glucose (70-99) mg/dl POC Glucose (other) (70-99) mg/dl Calcium (8.6-10.3) mg/dl POC Ioniz Calcium Fredy (1.12-1.32) mmol/l Total Bilirubin (0.2-1.0) mg/dl AST (13-39) U/L ALT (7-52) U/L Alkaline Phosphatase (34-104) U/L Troponin I High Sens 45.2 H D (0-14) pg/ml Total Protein (6.0-8.3) gm/dl Albumin (3.4-5.0) gm/dl Globulin (2.5-4.0) gm/dl Albumin/Globulin Ratio (0.9-2) Lipase (11-82) U/L Urine Color Yellow Urine Appearance Clear (Clear) Urine pH 5.5 (4.5-7.5) Ur Specific [place] 1.020 (1.000-1.030) Urine Protein 2+ H (Negative) Urine Glucose (UA) 2+ H (Negative) Urine Ketones Trace H (Negative) Urine Blood Negative (Negative) Urine Nitrite Negative (Negative) Urine Bilirubin Negative (Negative) Urine Urobilinogen Negative (Negative) Ur Leukocyte Esterase Trace H (Negative) Urine WBC (Auto) 6-10 H (0-5) /hpf Urine RBC (Auto) 0-2 (0-2) /hpf U Hyaline Cast (Auto) 6-10 H (0-2) /lpf U Epithel Cells (Auto) 0-2 (0-2) /hpf Urine Bacteria (Auto) None Seen (None Seen) Hyaline Casts Present A (None Presnt) /lpf Administered Medications Discontinued Medications Lidocaine/Epinephrine (Lidocaine 1%/Epinephrine 1:100,000 50 Ml Vial) Confirm Administered Dose 1 ml .ROUTE .STK-MED ONE Stop: 08/05/24 18:50 Last Admin: 08/05/24 20:32 Dose: Not Given Documented By: SNS Imaging Data Radiologist's Impression: Face CT 08/05/24 19:12 Exam(s): CT FACIAL Without Contrast EXAM: CT Maxillofacial Without Intravenous Contrast CLINICAL HISTORY: Reason for exam: Trauma. TECHNIQUE: Axial computed tomography images of the face without intravenous contrast. CTDI is 11.02 mGy and DLP is 185.81 mGy-cm. Automated exposure control was utilized for the study. A dose lowering technique was utilized adhering to the principles of ALARA. COMPARISON: No relevant prior studies available. FINDINGS: Bones/joints: No acute fracture. Soft tissues: Unremarkable. Orbits: Unremarkable. Sinuses: Mild ethmoid sinus mucosal thickening. No fluid levels. IMPRESSION: No acute facial fracture. Electronically signed by: Srinivasa Stafford MD 08/05/24 20:[address] 08/05/24 19:12 Exam(s): CT HEAD Without Contrast EXAM: CT Head Without Intravenous Contrast CLINICAL HISTORY: Reason for exam: Trauma. TECHNIQUE: Axial computed tomography images of the head/brain without intravenous contrast. CTDI is 35.79 mGy and DLP is 546.36 mGy-cm. Automated exposure control was utilized for the study. A dose lowering technique was utilized adhering to the principles of ALARA. COMPARISON: 10/30/2020 FINDINGS: Brain: No hemorrhage, extra-axial fluid collection, mass effect, or edema. Basal ganglia calcifications on the left. Global proximal atrophy. Ventricles: Unremarkable. Bones/joints: Unremarkable. No fracture. Soft tissues: Posterior scalp laceration.. Sinuses: No acute sinusitis. Mastoid air cells: Unremarkable as visualized. IMPRESSION: No acute intracranial abnormality. Electronically signed by: Srinivasa Stafford MD 08/05/24 20:[address] 08/05/24 20:19 Exam(s): CT C SPINE EXAM: CT Cervical Spine Without Intravenous Contrast CLINICAL HISTORY: Reason for exam: fall from standing. TECHNIQUE: Axial computed tomography images of the cervical spine without intravenous contrast. CTDI is 12.67 mGy and DLP is 232.19 mGy-cm. Automated exposure control was utilized for the study. A dose lowering technique was utilized adhering to the principles of ALARA. COMPARISON: No relevant prior studies available. FINDINGS: Vertebrae: No acute fracture. No malalignment. Soft tissues: Unremarkable. IMPRESSION: No evidence of acute fracture or malalignment within the cervical spine. Electronically signed by: Srinivasa Stafford MD 08/05/24 21:54 PM Discharge Plan Visit Data Chief Complaint: Trauma Stated Complaint: HEAD INJURY ED Provider: Mendy Collins Discharge Problem: Complex laceration of scalp, Fall from standing, Hyperglycemia, Elevated lipase, Non-ST elevation IA (NSTEMI) Discharge Instructions Krames/Other Patient Handouts: ED Scalp Laceration Sutr Stap Activity Restrictions/Additional Instructions: Your laboratory workup in the emergency department showed that your glucose was quite elevated, but on repeat assessment this is improved. You were found to have a slightly elevated pancreas level (lipase). Recommend close follow-up with your primary care provider for reassessment of this. Your CT imaging did not show any acute traumatic injuries. The lilo in your scalp need to be removed in 10 days. Please go to your primary care provider or return to the emergency department to get these out. You should return to the emergency department immediately if you develop confusion, new numbness or tingling or weakness in your extremities, chest pain or shortness of breath, vomiting, or any new or worsening symptoms. Forms Stand Alone Forms: My [facility] [employer] Prescriptions Prescriptions: No Action acetaminophen [Tylenol Arthritis Pain] 650 mg tablet extended release 650 mg PO Q12H PRN gabapentin 100 mg capsule 100 mg PO DAILY atorvastatin 20 mg tablet 20 mg PO DAILY docusate sodium 100 mg Capsule 100 mg PO HS cholecalciferol (vitamin D3) [Vitamin D3] 2,000 unit Capsule 2,000 unit PO QAM psyllium husk [Metamucil] 0.4 gram Capsule 0.4 g PO DAILY metoprolol succinate 25 mg Capsule,Sprinkle,Er 24hr 12.5 mg PO HS fluticasone propionate [Flonase Allergy Relief] 50 mcg/actuation [place],Suspension 2 spray INTRANASAL HS Breo Ellipta 100-25 mcg/dose Blister With Device 1 inh INHALATION 2XWK isosorbide mononitrate 30 mg tablet extended release 24 hr 30 mg PO DAILY losartan 100 mg tablet 25 mg PO DAILY calcium carbonate [Tums E-X] 300 mg (750 mg) Tablet,Chewable 300 mg PO DAILY brimonidine 0.2 % Drops 1 drp OPB TID melatonin 10 mg Tablet 10 mg PO HS aspirin [Sandra Low Dose Aspirin] 81 mg Tablet,Delayed Release (Dr/Ec) 81 mg PO DAILY amlodipine [Norvasc] 5 mg Tablet 5 mg PO QAM Qty: 30 0RF Referrals Referrals: Ayana Bergeron [Primary Care Provider] -
[2024-08-05 19:33] LABS: Basophils # (auto) 0.13 K/uL (0.00-0.20); Basophils % (auto) 1.3 %; Eosinophils # (auto) 0.32 K/uL (0.00-0.50); Eosinophils % (auto) 3.3 %; Hematocrit (blood only) 32.7 % (37.0-47.0); Hemoglobin 10.8 g/dl (12.0-16.0); Immature Granulocytes # (auto) 0.02 K/uL (0.01-0.20); Immature Granulocytes % (auto) 0.2 %; Lymphocytes # (auto) 2.41 K/uL (1.20-3.40); Mean Corpuscular Hemoglobin 30.3 pg (25.0-34.0); Mean Corpuscular Volume 91.6 fL (80.0-100.0); Mean Platelet Volume 10.3 fL (9.4-12.4); Monocytes # (auto) 0.94 K/uL (0.11-0.59); Monocytes % (auto) 9.8 %; Neutrophils # (auto) 5.81 K/uL (1.40-6.50); Neutrophils % (auto) 60.4 %; Platelet Count 331 K/uL (130-400); RDW Coefficient of Variation 12.1 % (11.5-14.5); RDW Standard Deviation 40.8 fL (36.4-46.3); Red Blood Count 3.57 M/uL (4.20-5.40); White Blood Count 9.63 K/ul (4.8-10.8)
[2024-08-05 19:43] LABS: iSTAT Creatinine 1.1 mg/dl (0.6-1.3); iSTAT Hemoglobin 11.2 g/dl (12.0-16.0); iSTAT Ionized Calcium 1.18 mmol/l (1.12-1.32); iSTAT Potassium 4.6 mmol/L (3.3-5.0)
[2024-08-05 19:45] LABS: Alanine Aminotransferase 29 U/L (7-52); Albumin Globulin Ratio 1.1 (0.9-2); Albumin Level 3.7 gm/dl (3.4-5.0); Alkaline Phosphatase 66 U/L (34-104); Anion Gap 8 (3-11); Aspartate Aminotransferase 41 U/L (13-39); BUN Creatinine Ratio 29.2 (10-20); Bilirubin,Total 0.3 mg/dl (0.2-1.0); Blood Urea Nitrogen 31 mg/dl (6-23); Calcium 9.1 mg/dl (8.6-10.3); Carbon Dioxide 23 mmol/L (21-32); Chloride 105 mmol/L (98-107); Globulin 3.3 gm/dl (2.5-4.0); Glucose 318 mg/dl (70-99(Fasting)); Lipase 111 U/L (11-82); Potassium 4.6 mmol/L (3.5-5.1); Sodium 136 mmol/L (136-145); Troponin I High Sensitivity 14.1 pg/ml (0-14)
--- NOTE | 2024-08-05 20:06 | CT Scan Report ---
Exam(s): CT HEAD Without Contrast EXAM: CT Head Without Intravenous Contrast CLINICAL HISTORY: Reason for exam: Trauma. TECHNIQUE: Axial computed tomography images of the head/brain without intravenous contrast. CTDI is 35.79 mGy and DLP is 546.36 mGy-cm. Automated exposure control was utilized for the study. A dose lowering technique was utilized adhering to the principles of ALARA. COMPARISON: 10/30/2020 FINDINGS: Brain: No hemorrhage, extra-axial fluid collection, mass effect, or edema. Basal ganglia calcifications on the left. Global proximal atrophy. Ventricles: Unremarkable. Bones/joints: Unremarkable. No fracture. Soft tissues: Posterior scalp laceration.. Sinuses: No acute sinusitis. Mastoid air cells: Unremarkable as visualized. IMPRESSION: No acute intracranial abnormality. Electronically signed by: Srinivasa Stafford MD 08/05/24 20:06 PM
--- NOTE | 2024-08-05 20:09 | CT Scan Report ---
Exam(s): CT FACIAL Without Contrast EXAM: CT Maxillofacial Without Intravenous Contrast CLINICAL HISTORY: Reason for exam: Trauma. TECHNIQUE: Axial computed tomography images of the face without intravenous contrast. CTDI is 11.02 mGy and DLP is 185.81 mGy-cm. Automated exposure control was utilized for the study. A dose lowering technique was utilized adhering to the principles of ALARA. COMPARISON: No relevant prior studies available. FINDINGS: Bones/joints: No acute fracture. Soft tissues: Unremarkable. Orbits: Unremarkable. Sinuses: Mild ethmoid sinus mucosal thickening. No fluid levels. IMPRESSION: No acute facial fracture. Electronically signed by: Srinivasa Stafford MD 08/05/24 20:09 PM
[2024-08-05 20:11] LABS: INR 0.9 (0.9-1.1); Partial Thromboplastin Ratio 0.9; Partial Thromboplastin Time 24 Seconds (21-31); Prothrombin Time 10.3 Seconds (9.0-12.0)
[2024-08-05] MEDS: LIDOCAINE 1%/EPINEPHRINE 1:100,000 50 ML VIAL ONE (20:32)
[2024-08-05 20:55] LABS: Appearance Urine Clear (Clear); Bacteria Urine Automated None Seen (None Seen); Bilirubin Urine Negative (Negative); Blood Urine Negative (Negative); Color Urine Yellow; Epithelial Cell Urine Auto 0-2 /hpf (0-2); Glucose Urine UA 2+ (Negative); Hyaline Casts Urine Present /lpf (None Presnt); Ketones Urine Trace (Negative); Leukocyte Esterase Urine Trace (Negative); Nitrite Urine Negative (Negative); Protein Urine 2+ (Negative); RBC Urine Automated 0-2 /hpf (0-2); Urobilinogen Urine Negative (Negative); pH Urine 5.5 (4.5-7.5)
--- NOTE | 2024-08-05 21:55 | CT Scan Report ---
Exam(s): CT C SPINE EXAM: CT Cervical Spine Without Intravenous Contrast CLINICAL HISTORY: Reason for exam: fall from standing. TECHNIQUE: Axial computed tomography images of the cervical spine without intravenous contrast. CTDI is 12.67 mGy and DLP is 232.19 mGy-cm. Automated exposure control was utilized for the study. A dose lowering technique was utilized adhering to the principles of ALARA. COMPARISON: No relevant prior studies available. FINDINGS: Vertebrae: No acute fracture. No malalignment. Soft tissues: Unremarkable. IMPRESSION: No evidence of acute fracture or malalignment within the cervical spine. Electronically signed by: Srinivasa Stafford MD 08/05/24 21:54 PM
[2024-08-06] MEDS: ACETAMINOPHEN 1,000 MG/100 ML VIAL IV STA (00:20)
--- NOTE | 2024-08-06 01:23 | XRay Report ---
EXAM: XR chest 1V portable CLINICAL HISTORY: FELL. TECHNIQUE: X-ray of the chest was done in AP view. COMPARISON: 05/14/2022 CR. FINDINGS: Radiographic examination of the chest demonstrates clear lungs. Normal configuration of the mediastinum. The leta are normal in size and position. Cardiomegaly. The bony thorax is unremarkable. The costophrenic and cardiophrenic angles are clear. IMPRESSION: 1. No acute cardiopulmonary pathology. 2. Cardiomegaly. Stable. Electronically signed by Citlali Harris 08-06-2024 01:23 AM
--- NOTE | 2024-08-06 03:00 | History & Physical Report ---
Date of Service August 06, 2024 Assessment & Plan (1) Complex laceration of scalp: Plan: 89-year-old female with past med history significant for CAD, hypertension, hyperlipidemia, left ventricular hypertrophy history of diabetes comes with a fall and injury to the back of the head and bleeding and also found to have elevated troponin. Patient was walking in bedroom and tripped over the corner of the comforter and fell backwards striking her head on the chest/ night stand. And she was started bleeding from the back of the head. No loss of consciousness. Not on anticoagulation. Patient had scalp laceration on the right posteriorly parietal region had pulsatile bleeding it was injected with 3 cc lidocaine with epi and successful tamponade of the bleed. Laceration was repaired with lilo. Patients pain is under control now. Denies any blurred vision or double vision. No runny nose. No sore throat. No cough. No fevers. No chest pain or shortness of. No feeling of dizziness. No palpitation. No abdominal pain. Normal bowel and bladder movements. She ambulates without support per patient. Lives with her . Hemodynamics are okay. Complex laceration of scalp With the bleeding From fall Status post injection with 3 cc of lidocaine with epi with successful tamponade the bleed. Laceration was repaired with lilo We will monitor PT OT when stable Elevated troponin Initial troponin 14 repeat is 45 No chest pain or shortness of breath We will follow serial enzymes and echo If any concerns consult cardiology History of CAD 70 to 80% narrowing of the small branch of the left circumflex No stents On aspirin statin, beta-louisa and Imdur History of diabetes Seems not on med Sliding scale Will follow HbA1c levels Hypertension On amlodipine, losartan, Imdur and metoprolol succinate Will monitor DVT prophylaxis SCDs Disposition Med/telemetry Full code. History of Present Illness Chief Complaint: Status post fall and head injury and bleeding and elevated troponin Primary Care Provider: Ayana Bergreon 89-year-old female with past med history significant for CAD, hypertension, hyperlipidemia, left ventricular hypertrophy history of diabetes comes with a fall and injury to the back of the head and bleeding and also found to have elevated troponin. Patient was walking in bedroom and tripped over the corner of the comforter and fell backwards striking her head on the chest/ night stand. And she was started bleeding from the back of the head. No loss of consciousness. Not on anticoagulation. Patient had scalp laceration on the right posteriorly parietal region had pulsatile bleeding it was injected with 3 cc lidocaine with epi and successful tamponade of the bleed. Laceration was repaired with lilo. Patients pain is under control now. Denies any blurred vision or double vision. No runny nose. No sore throat. No cough. No fevers. No chest pain or shortness of. No feeling of dizziness. No palpitation. No abdominal pain. Normal bowel and bladder movements. She ambulates without support per patient. Lives with her . 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 Cardiac stent placed. History of left total knee replacement. History of laparotomy. History of GERD. Family history. Father had hypertension. Family significant diabetes. Social history. No smoking. No alcohol use. No drug use. Allergies Allergy/AdvReac Type Severity Reaction Status Date / Time Beta-Blockers Allergy Mild MAKES Verified 02/04/24 10:24 (Beta-Adrenergic Bloc BREATHING/ASTHMA WORSE-LOW PULSE lisinopril Allergy Mild Unknown Verified 08/06/24 04:15 animal dander Allergy Unknown INCREASES Verified 02/04/24 10:24 HER ASTHMA SYMPTOMS Home Medications Medication Instructions Recorded Confirmed Type cholecalciferol (vitamin D3) 50 2,000 unit PO QAM 11/11/18 08/06/24 History mcg (2,000 unit) capsule (Vitamin D3) docusate sodium 100 mg capsule 100 mg PO HS 11/11/18 08/06/24 History fluticasone furoate 100 1 inh inhalation 2XWK 11/11/18 08/06/24 History mcg-vilanterol 25 mcg/dose inhalation powder (Breo Ellipta) fluticasone propionate 50 2 spray intranasal HS PRN 11/11/18 08/06/24 History mcg/actuation nasal Congestion spray,suspension (Flonase Allergy Relief) aspirin 81 mg tablet,delayed 81 mg PO DAILY 10/30/20 08/06/24 History release (Sandra Low Dose Aspirin) brimonidine 0.2 % eye drops 1 drp OPB BID 10/30/20 08/06/24 History calcium carbonate (Tums E-X) 300 mg PO 3XWK 10/30/20 08/06/24 History melatonin 10 mg tablet 10 mg PO HS 10/30/20 08/06/24 History amlodipine 5 mg tablet (Norvasc) 5 mg PO QAM #30 tabs 10/31/20 08/06/24 Rx atorvastatin 20 mg tablet 20 mg PO HS 05/12/22 08/06/24 History isosorbide mononitrate 30 mg 30 mg PO QDL 05/12/22 08/06/24 History tablet,extended release 24 hr acetaminophen 650 mg 650 mg PO Q12H PRN Pain 02/04/24 08/06/24 History tablet,extended release (Tylenol Arthritis Pain) losartan 25 mg tablet 25 mg PO QDL 08/06/24 08/06/24 History metoprolol succinate 25 mg 12.5 mg PO HS 08/06/24 08/06/24 History tablet,extended release 24 hr psyllium husk 3.4 gram/5.4 gram 1.5 tbsp PO BID 08/06/24 08/06/24 History oral powder (Metamucil) Past Med/Surg History Problem List (Updated 08/06/24 @ 00:01 by Mendy Collins MD) Non-ST elevation IA (NSTEMI) (Acute) Elevated lipase (Acute) Hyperglycemia (Acute) Fall from standing (Acute) Complex laceration of scalp (Acute) LVH (left ventricular hypertrophy) Hyperlipidemia Weight loss, unintentional Lung nodules Diabetes mellitus type 2, controlled (12/06/12) Asthma (12/06/12) Asthma STABLE WITH BREO 3X/WK. NO RESCUE INHALER USE. Diabetes mellitus, type 2 CAD (coronary artery disease) Per cardio 11/09/18 "branch vessel coronary artery disease with mild to moderate atherosclerosis in 70-80% narrowing of a small branch of the left circumflex." Cardiac cath 2017, no stents. Hypertensive urgency Hypertension Medical History (Updated 08/06/24 @ 00:01 by Mendy Collins MD) Hiatal hernia (12/06/12) Pancreatitis HX Osteoporosis Lyme disease TREATED-DX'D 4-5 YRS AGO Lung nodules UNDER OBSERVATION Osteoarthritis Hiatal hernia GERD (gastroesophageal reflux disease) Glaucoma Anxiety SOB (shortness of breath) on exertion Myocardial Infarction 11/2017 NSTEMI in the setting of hypertensive urgency, elevated HR. Hypertension Surgical History History of total left knee replacement History of laparotomy ECTOPIC History of esophagogastroduodenoscopy (EGD) WITH DILITATION Cancer BASAL CELL NECK REMOVAL History of cardiac cath 11/2017 for NSTEMI NO STENTS-[facility] Family History (Updated 10/30/20 @ 16:25 by KURTIS River) Aunt Family history of diabetes mellitus Father Hypertension Social History Smoking Status: Never smoker Second Hand Exposure: No; Do You Dip or Chew Tobacco: No; Hx Alcohol Use: No Hx Substance Use: No Preferred Language: Macedonian Communication Ability: Effective Xerox Machine 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 ENT- oropharynx clear Neck- supple, no JVD. Lungs- clear to auscultation no wheezing or crackles Heart- regular rate and rhythm; no murmur, no gallop. Abdomen- normal bowel sounds, soft, nontender, no distension Extremities- no pretibial edema, no erythema seen Neuro- alert, oriented PERRL, EOMI; no facial palsy; no dysarthria; moves extremities Results & Data Results & Data Vital Signs (Past 12 Hours) Vital Signs Temp Pulse Pulse Resp BP BP Pulse Ox 08/06/24 01:00 59 L 18 154/40 H 97 08/06/24 00:00 68 18 186/69 H 98 08/05/24 23:00 63 18 97 08/05/24 22:39 60 08/05/24 22:00 68 16 139/70 96 08/05/24 21:06 62 22 141/65 H 97 08/05/24 20:38 16 08/05/24 20:36 64 20 144/66 H 97 08/05/24 20:03 72 18 146/63 H 96 08/05/24 20:01 75 18 146/63 H 95 08/05/24 19:51 66 18 149/58 H 96 08/05/24 19:28 71 18 97 08/05/24 19:24 71 20 151/65 H 97 08/05/24 19:01 97 08/05/24 19:01 70 20 155/65 H 155 H 08/05/24 19:01 36.6 C 78 20 155/65 H 97 08/05/24 19:00 81 21 155/65 H 97 08/05/24 18:47 107 H 08/05/24 18:47 93 H 24 204/128 H 97 O2 Del Method O2 Flow Rate 08/06/24 01:00 Room Air 08/06/24 00:00 Room Air 08/05/24 23:00 Room Air 08/05/24 22:39 08/05/24 22:00 Room Air 08/05/24 21:06 Room Air 08/05/24 20:38 08/05/24 20:36 Room Air 08/05/24 20:03 Room Air 08/05/24 20:01 Room Air 08/05/24 19:51 Room Air 08/05/24 19:28 Room Air 08/05/24 19:24 Room Air 08/05/24 19:01 Room Air 08/05/24 19:01 Room Air 08/05/24 19:01 Room Air 0 08/05/24 19:00 Room Air 08/05/24 18:47 08/05/24 18:47 Room Air Diagnostic Findings Laboratory Results WBC 9.63 K/ul (4.8-10.8) 08/05/24 18:48 RBC 3.57 M/uL (4.20-5.40) L 08/05/24 18:48 Hgb 10.8 g/dl (12.0-16.0) L 08/05/24 18:48 POC Hgb 11.2 g/dl (12.0-16.0) L 08/05/24 19:31 Hct 32.7 % (37.0-47.0) L 08/05/24 18:48 POC Hct 33 % (37-47) L 08/05/24 19:31 MCV 91.6 fL (80.0-100.0) 08/05/24 18:48 MCH 30.3 pg (25.0-34.0) 08/05/24 18:48 MCHC 33.0 g/dL (32.0-36.0) 08/05/24 18:48 RDW Std Deviation 40.8 fL (36.4-46.3) 08/05/24 18:48 RDW Coeff of Don 12.1 % (11.5-14.5) 08/05/24 18:48 Plt Count 331 K/uL (130-400) 08/05/24 18:48 MPV 10.3 fL (9.4-12.4) 08/05/24 18:48 Immature Gran % (Auto) 0.2 % 08/05/24 18:48 Neut % (Auto) 60.4 % 08/05/24 18:48 Lymph % (Auto) 25.0 % 08/05/24 18:48 [place] % (Auto) 9.8 % 08/05/24 18:48 Eos % (Auto) 3.3 % 08/05/24 18:48 Baso % (Auto) 1.3 % 08/05/24 18:48 Neut # (Auto) 5.81 K/uL (1.40-6.50) 08/05/24 18:48 Lymph # (Auto) 2.41 K/uL (1.20-3.40) 08/05/24 18:48 [place] # (Auto) 0.94 K/uL (0.11-0.59) H 08/05/24 18:48 Eos # (Auto) 0.32 K/uL (0.00-0.50) 08/05/24 18:48 Baso # (Auto) 0.13 K/uL (0.00-0.20) 08/05/24 18:48 Immature Gran # (Auto) 0.02 K/uL (0.01-0.20) 08/05/24 18:48 PT 10.3 Seconds (9.0-12.0) 08/05/24 18:48 INR 0.9 (0.9-1.1) 08/05/24 18:48 APTT 24 Seconds (21-31) 08/05/24 18:48 PTT Ratio 0.9 08/05/24 18:48 POC Sodium 137 mmol/L (135-144) 08/05/24 19:31 Sodium 136 mmol/L (136-145) 08/05/24 18:48 POC Potassium 4.6 mmol/L (3.3-5.0) 08/05/24 19:31 Potassium 4.6 mmol/L (3.5-5.1) 08/05/24 18:48 POC Chloride 105 mmol/L (101-112) 08/05/24 19:31 Chloride 105 mmol/L (98-107) 08/05/24 18:48 Carbon Dioxide 23 mmol/L (21-32) 08/05/24 18:48 POC Total CO2 23 mmol/L (24-31) L 08/05/24 19:31 Anion Gap 8 (3-11) 08/05/24 18:48 POC Anion Gap 14.0 mmol/L (16-25) L 08/05/24 19:31 POC BUN 33 mg/dl (7-18) H 08/05/24 19:31 BUN 31 mg/dl (6-23) H 08/05/24 18:48 Creatinine 1.06 mg/dl (0.6-1.2) 08/05/24 18:48 POC Creatinine 1.1 mg/dl (0.6-1.3) 08/05/24 19:31 Est Cr Clr Drug Dosing Not Reportable 08/05/24 18:48 eGFR 50.53 08/05/24 18:48 BUN/Creatinine Ratio 29.2 (10-20) H 08/05/24 18:48 Glucose 318 mg/dl (70-99(Fasting)) H* 08/05/24 18:48 POC Glucose 134 mg/dl (70-99) H 08/05/24 22:50 POC Glucose (other) 308 mg/dl (70-99) H 08/05/24 19:31 Calcium 9.1 mg/dl (8.6-10.3) 08/05/24 18:48 POC Ioniz Calcium Fredy 1.18 mmol/l (1.12-1.32) 08/05/24 19:31 Total Bilirubin 0.3 mg/dl (0.2-1.0) 08/05/24 18:48 AST 41 U/L (13-39) H 08/05/24 18:48 ALT 29 U/L (7-52) 08/05/24 18:48 Alkaline Phosphatase 66 U/L (34-104) 08/05/24 18:48 Troponin I High Sens 45.2 pg/ml (0-14) H D 08/05/24 22:52 Total Protein 7.0 gm/dl (6.0-8.3) 08/05/24 18:48 Albumin 3.7 gm/dl (3.4-5.0) 08/05/24 18:48 Globulin 3.3 gm/dl (2.5-4.0) 08/05/24 18:48 Albumin/Globulin Ratio 1.1 (0.9-2) 08/05/24 18:48 Lipase 111 U/L (11-82) H 08/05/24 18:48 Urine Color Yellow 08/05/24 Unknown Urine Appearance Clear (Clear) 08/05/24 Unknown Urine pH 5.5 (4.5-7.5) 08/05/24 Unknown Ur Specific [place] 1.020 (1.000-1.030) 08/05/24 Unknown Urine Protein 2+ (Negative) H 08/05/24 Unknown Urine Glucose (UA) 2+ (Negative) H 08/05/24 Unknown Urine Ketones Trace (Negative) H 08/05/24 Unknown Urine Blood Negative (Negative) 08/05/24 Unknown Urine Nitrite Negative (Negative) 08/05/24 Unknown Urine Bilirubin Negative (Negative) 08/05/24 Unknown Urine Urobilinogen Negative (Negative) 08/05/24 Unknown Ur Leukocyte Esterase Trace (Negative) H 08/05/24 Unknown Urine WBC (Auto) 6-10 /hpf (0-5) H 08/05/24 Unknown Urine RBC (Auto) 0-2 /hpf (0-2) 08/05/24 Unknown U Hyaline Cast (Auto) 6-10 /lpf (0-2) H 08/05/24 Unknown U Epithel Cells (Auto) 0-2 /hpf (0-2) 08/05/24 Unknown Urine Bacteria (Auto) None Seen (None Seen) 08/05/24 Unknown Hyaline Casts Present /lpf (None Presnt) A 08/05/[address] 08/05/24 19:12 Exam(s): CT FACIAL Without Contrast EXAM: CT Maxillofacial Without Intravenous Contrast CLINICAL HISTORY: Reason for exam: Trauma. TECHNIQUE: Axial computed tomography images of the face without intravenous contrast. CTDI is 11.02 mGy and DLP is 185.81 mGy-cm. Automated exposure control was utilized for the study. A dose lowering technique was utilized adhering to the principles of ALARA. COMPARISON: No relevant prior studies available. FINDINGS: Bones/joints: No acute fracture. Soft tissues: Unremarkable. Orbits: Unremarkable. Sinuses: Mild ethmoid sinus mucosal thickening. No fluid levels. IMPRESSION: No acute facial fracture. Electronically signed by: Srinivasa Stafford MD 08/05/24 20:[address] 08/05/24 19:12 Exam(s): CT HEAD Without Contrast EXAM: CT Head Without Intravenous Contrast CLINICAL HISTORY: Reason for exam: Trauma. TECHNIQUE: Axial computed tomography images of the head/brain without intravenous contrast. CTDI is 35.79 mGy and DLP is 546.36 mGy-cm. Automated exposure control was utilized for the study. A dose lowering technique was utilized adhering to the principles of ALARA. COMPARISON: 10/30/2020 FINDINGS: Brain: No hemorrhage, extra-axial fluid collection, mass effect, or edema. Basal ganglia calcifications on the left. Global proximal atrophy. Ventricles: Unremarkable. Bones/joints: Unremarkable. No fracture. Soft tissues: Posterior scalp laceration.. Sinuses: No acute sinusitis. Mastoid air cells: Unremarkable as visualized. IMPRESSION: No acute intracranial abnormality. Electronically signed by: Srinivasa Stafford MD 08/05/24 20:[address] 08/05/24 20:19 Exam(s): CT C SPINE EXAM: CT Cervical Spine Without Intravenous Contrast CLINICAL HISTORY: Reason for exam: fall from standing. TECHNIQUE: Axial computed tomography images of the cervical spine without intravenous contrast. CTDI is 12.67 mGy and DLP is 232.19 mGy-cm. Automated exposure control was utilized for the study. A dose lowering technique was utilized adhering to the principles of ALARA. COMPARISON: No relevant prior studies available. FINDINGS: Vertebrae: No acute fracture. No malalignment. Soft tissues: Unremarkable. IMPRESSION: No evidence of acute fracture or malalignment within the cervical spine. Electronically signed by: Srinivasa Stafford MD 08/05/24 21:54 PM Chest X-Ray 08/05/24 23:44 EXAM: XR chest 1V portable CLINICAL HISTORY: FELL. TECHNIQUE: X-ray of the chest was done in AP view. COMPARISON: 05/14/2022 CR. FINDINGS: Radiographic examination of the chest demonstrates clear lungs. Normal configuration of the mediastinum. The leta are normal in size and position. Cardiomegaly. The bony thorax is unremarkable. The costophrenic and cardiophrenic angles are clear. IMPRESSION: 1. No acute cardiopulmonary pathology. 2. Cardiomegaly. Stable. Electronically signed by Citlali Harris 08-06-2024 01:23 AM ECG Additional Comments: ECG normal sinus rhythm rate of 70. No significant change was found. Code Status & VTE Plan VTE Prophylaxis Plan VTE Prophylaxis will be ordered: Yes
[2024-08-06] MEDS ORDERED: POLYETHYLENE (MIRALAX) 17 GM PACK PO PRN (04:09)
[2024-08-06] MEDS ORDERED: MELATONIN 3 MG TAB PO PRN (04:09)
[2024-08-06] MEDS ORDERED: NITROGLYCERIN SL 0.4 MG/TAB TAB SL PRN (04:09)
[2024-08-06 09:12] LABS: Basophils % (auto) 1.3 %; Eosinophils # (auto) 0.28 K/uL (0.00-0.50); Eosinophils % (auto) 3.6 %; Hematocrit (blood only) 32.1 % (37.0-47.0); Hemoglobin 10.5 g/dl (12.0-16.0); Immature Granulocytes # (auto) 0.02 K/uL (0.01-0.20); Immature Granulocytes % (auto) 0.3 %; Lymphocytes # (auto) 1.67 K/uL (1.20-3.40); Lymphocytes % (auto) 21.6 %; Mean Corpuscular Hemoglobin 29.7 pg (25.0-34.0); Mean Corpuscular Hgb Conc 32.7 g/dL (32.0-36.0); Mean Corpuscular Volume 90.9 fL (80.0-100.0); Mean Platelet Volume 9.8 fL (9.4-12.4); Monocytes # (auto) 0.68 K/uL (0.11-0.59); Monocytes % (auto) 8.8 %; Neutrophils # (auto) 4.97 K/uL (1.40-6.50); Neutrophils % (auto) 64.4 %; Platelet Count 335 K/uL (130-400); RDW Coefficient of Variation 12.1 % (11.5-14.5); RDW Standard Deviation 39.8 fL (36.4-46.3); Red Blood Count 3.53 M/uL (4.20-5.40); White Blood Count 7.72 K/ul (4.8-10.8)
[2024-08-06 09:25] LABS: BUN Creatinine Ratio 26.4 (10-20); Calcium 9.3 mg/dl (8.6-10.3); Creatinine Clr Calc Pharmacy 34.9 ml/min; Magnesium 1.9 mg/dl (1.7-2.4); Potassium 4.4 mmol/L (3.5-5.1)
[2024-08-06 09:37] LABS: Troponin I High Sensitivity 19.4 pg/ml (0-14)
[2024-08-06] MEDS ORDERED: CARBOHYDRATES FOR HYPOGLYCEMIA PO PRN (09:37)
[2024-08-06] MEDS ORDERED: DEXTROSE 50% 50 ML SYRINGE IV PRN (09:37)
[2024-08-06] MEDS ORDERED: GLUCOSE 40% GEL 15 GM TUBE PO PRN (09:37)
[2024-08-06] MEDS ORDERED: GLUCAGON FOR INJ 1 MG VIAL SQ PRN (09:37)
[2024-08-06] MEDS ORDERED: GLUCOSE 10 TAB/TUBE PO PRN (09:37)
--- NOTE | 2024-08-06 10:30 | Electrocardiogram Report ---
Test Reason : Blood Pressure : */* mmHG Vent. Rate : 70 BPM Atrial Rate : 70 BPM P-R Int : 150 ms QRS Dur : 72 ms QT Int : 364 ms P-R-T Axes : 58 5 39 degrees QTcB Int : 393 ms Normal sinus rhythm Normal ECG When compared with ECG of 31-Oct-2020 05:56, No significant change was found Confirmed by Lauren Deleon (Jermaine) on 08/06/2024 10:29:52 AM Referred By: REFERRED SELF Confirmed By: Lauren Deleon
[2024-08-06] MEDS: PSYLLIUM or GUAR GUM FIBER 4GM PACKET PO SCH (11:22)
[2024-08-06] MEDS: ASPIRIN 81 MG ECTAB PO SCH (11:23)
[2024-08-06] MEDS: amLODIPine BESYLATE 5 MG TAB PO SCH (11:23)
[2024-08-06] MEDS: CHOLECALCIFEROL 25 MCG (1000 UNITS) TAB PO SCH (11:23)
[2024-08-06] MEDS: BRIMONIDINE TARTRATE 0.2% 5ML OPB SCH (11:24)
[2024-08-06] MEDS: FLUTICASONE/VILANTEROL 100/25MCG 14 PUFFS/INHALER INH SCH (11:24)
[2024-08-06] MEDS: LOSARTAN POTASSIUM 25 MG TAB PO SCH (11:25)
[2024-08-06] MEDS: ISOSORBIDE MONO EXTENDED REL 30 MG TABCR PO SCH (11:25)
[2024-08-06] MEDS: INSULIN ASPART PER UNIT CHARGE SC SCH (11:55)
[2024-08-06] MEDS: ACETAMINOPHEN 325 MG TAB PO PRN (16:15)
--- NOTE | 2024-08-06 17:14 | Hospitalist Progress Note ---
Date of Service August 06, 2024 Assessment & Plan (1) Complex laceration of scalp: Plan Pt is a 89-year-old female with past med history significant for CAD, hypertension, hyperlipidemia, left ventricular hypertrophy, history of diabetes who presented after a fall and injury to the back of the head with significant bleeding. Also found to have an elevated troponin level. Patient stated she was walking in her bedroom and tripped over the corner of the comforter and fell backwards striking her head on the chest/ night stand. Started bleeding from the back of the head. No loss of consciousness. Not on anticoagulation. Laceration was repaired with lilo. Complex laceration of scalp Pt fell, likely mechanical, hit the back of her head Not on anticoagulation head CT, face CT, cervical spine CT unremarkable for acute fractures/trauma Profuse bleeding from posterior scalp laceration, s/p stapled repair in the ED on 08/05/24, 7 lilo, need to be removed in 10 days Empiric Augmentin 875mg BID x 7 days Check TDAP status PT OT for further recs for discharge Elevated troponin Demand Ischemia Initial troponin 14 repeat is 45, has since downtrended EKG NSR Echo noting EF 65 to 70%, mild LVH, grade 1 diastolic dysfunction, mild aortic regurgitation No chest pain or shortness of breath Doubt ACS History of CAD 70 to 80% narrowing of the small branch of the left circumflex No stents On aspirin statin, beta-louisa and Imdur History of diabetes Not currently on meds Sliding scale Hgba1c pending Hypertension On amlodipine, losartan, Imdur and metoprolol succinate Will monitor Diet: HH/DMII DVT prophylaxis: SCDs in setting of acute bleed Dispo: PT/OT for further recs Admission and Anticipated Discharge Date Admission Date: August 06, 2024 Subjective patient was seen while still down in the emergency room She is anxious for discharge, noting that the bleeding had stopped to head Did notice slight headache Otherwise denying acute concerns Daughter called and updated at about 5:20 PM Review of Systems Review of Systems: All systems reviewed & are unremarkable except as noted in Subjective Physical Exam Physical Exam: General: Alert, oriented Psych: Appropriate mood and affect Neuro: AAOx3 HEENT: NC, bloody hair, stapled laceration on back of scalp CV: RRR Resp: Breath sounds clear bilaterally, no increased effort of breathing Abdomen:Soft, nontender Extremities: No edema in lower extremities bilaterally. Results & Data Results & Data Vital Signs (Past 12 Hours) Vital Signs Temp Pulse Pulse Resp BP BP Pulse Ox 08/06/24 17:01 36.7 C 93 H 16 178/64 H 96 08/06/24 13:30 79 17 98 08/06/24 13:03 70 20 154/65 H 98 08/06/24 12:54 63 20 91 08/06/24 12:12 69 19 98 08/06/24 12:00 145/59 H 08/06/24 10:09 77 20 174/73 H 98 08/06/24 07:38 83 19 165/65 H 97 08/06/24 07:10 64 21 165/65 H 95 08/06/24 06:32 60 18 171/44 H 100 O2 Del Method 08/06/24 17:01 Room Air 08/06/24 13:30 08/06/24 13:03 08/06/24 12:54 08/06/24 12:12 08/06/24 12:00 08/06/24 10:09 08/06/24 07:38 08/06/24 07:10 Room Air 08/06/24 06:[address] 08/05/24 19:12 Exam(s): CT FACIAL Without Contrast EXAM: CT Maxillofacial Without Intravenous Contrast CLINICAL HISTORY: Reason for exam: Trauma. TECHNIQUE: Axial computed tomography images of the face without intravenous contrast. CTDI is 11.02 mGy and DLP is 185.81 mGy-cm. Automated exposure control was utilized for the study. A dose lowering technique was utilized adhering to the principles of ALARA. COMPARISON: No relevant prior studies available. FINDINGS: Bones/joints: No acute fracture. Soft tissues: Unremarkable. Orbits: Unremarkable. Sinuses: Mild ethmoid sinus mucosal thickening. No fluid levels. IMPRESSION: No acute facial fracture. Electronically signed by: Srinivasa Stafford MD 08/05/24 20:[address] 08/05/24 19:12 Exam(s): CT HEAD Without Contrast EXAM: CT Head Without Intravenous Contrast CLINICAL HISTORY: Reason for exam: Trauma. TECHNIQUE: Axial computed tomography images of the head/brain without intravenous contrast. CTDI is 35.79 mGy and DLP is 546.36 mGy-cm. Automated exposure control was utilized for the study. A dose lowering technique was utilized adhering to the principles of ALARA. COMPARISON: 10/30/2020 FINDINGS: Brain: No hemorrhage, extra-axial fluid collection, mass effect, or edema. Basal ganglia calcifications on the left. Global proximal atrophy. Ventricles: Unremarkable. Bones/joints: Unremarkable. No fracture. Soft tissues: Posterior scalp laceration.. Sinuses: No acute sinusitis. Mastoid air cells: Unremarkable as visualized. IMPRESSION: No acute intracranial abnormality. Electronically signed by: Srinivasa Stafford MD 08/05/24 20:[address] 08/05/24 20:19 Exam(s): CT C SPINE EXAM: CT Cervical Spine Without Intravenous Contrast CLINICAL HISTORY: Reason for exam: fall from standing. TECHNIQUE: Axial computed tomography images of the cervical spine without intravenous contrast. CTDI is 12.67 mGy and DLP is 232.19 mGy-cm. Automated exposure control was utilized for the study. A dose lowering technique was utilized adhering to the principles of ALARA. COMPARISON: No relevant prior studies available. FINDINGS: Vertebrae: No acute fracture. No malalignment. Soft tissues: Unremarkable. IMPRESSION: No evidence of acute fracture or malalignment within the cervical spine. Electronically signed by: Srinivasa Stafford MD 08/05/24 21:54 PM Chest X-Ray 08/05/24 23:44 EXAM: XR chest 1V portable CLINICAL HISTORY: FELL. TECHNIQUE: X-ray of the chest was done in AP view. COMPARISON: 05/14/2022 CR. FINDINGS: Radiographic examination of the chest demonstrates clear lungs. Normal configuration of the mediastinum. The leta are normal in size and position. Cardiomegaly. The bony thorax is unremarkable. The costophrenic and cardiophrenic angles are clear. IMPRESSION: 1. No acute cardiopulmonary pathology. 2. Cardiomegaly. Stable. Electronically signed by Citlali Harris 08-06-2024 01:23 AM
[2024-08-06] MEDS: AMOXICILLIN/CLAVULANATE 875 MG TAB PO SCH (18:19)
[2024-08-06] MEDS: METOPROLOL SUCC 25MG EXT REL TAB PO SCH (22:18)
[2024-08-06] MEDS: ATORVASTATIN 20 MG TAB PO SCH (22:19)
[2024-08-06] MEDS: MELATONIN 3 MG TAB PO SCH (22:19)
[2024-08-06] MEDS: DOCUSATE SODIUM 100 MG CAP PO SCH (22:20)
[2024-08-07 07:26] LABS: Basophils # (auto) 0.11 K/uL (0.00-0.20); Basophils % (auto) 1.6 %; Eosinophils # (auto) 0.39 K/uL (0.00-0.50); Eosinophils % (auto) 5.6 %; Hematocrit (blood only) 30.3 % (37.0-47.0); Hemoglobin 9.7 g/dl (12.0-16.0); Immature Granulocytes # (auto) 0.02 K/uL (0.01-0.20); Immature Granulocytes % (auto) 0.3 %; Lymphocytes # (auto) 1.61 K/uL (1.20-3.40); Lymphocytes % (auto) 23.2 %; Mean Corpuscular Hemoglobin 29.1 pg (25.0-34.0); Mean Platelet Volume 9.9 fL (9.4-12.4); Monocytes % (auto) 11.5 %; Neutrophils # (auto) 4.01 K/uL (1.40-6.50); Neutrophils % (auto) 57.8 %; Platelet Count 301 K/uL (130-400); RDW Coefficient of Variation 12.2 % (11.5-14.5); RDW Standard Deviation 40.6 fL (36.4-46.3); Red Blood Count 3.33 M/uL (4.20-5.40); White Blood Count 6.94 K/ul (4.8-10.8)
[2024-08-07] MEDS: FLUTICASONE PROPIONATE NA SPR 16 GM BTL PRN (07:41)
[2024-08-07 07:45] LABS: Calcium 8.9 mg/dl (8.6-10.3); Creatinine Clr Calc Pharmacy 29.2 ml/min; Potassium 4.8 mmol/L (3.5-5.1)
[2024-08-07 07:48] LABS: Estimated Average Glucose 163 mg/dl; Hemoglobin A1C 7.3 % (4.5-5.6)
[2024-08-07] MEDS ORDERED: AMOXICILLIN/CLAVULANATE 875 MG TAB PO SCH (08:00)
--- NOTE | 2024-08-07 10:19 | Electrocardiogram Report ---
Test Reason : Blood Pressure : */* mmHG Vent. Rate : 58 BPM Atrial Rate : 58 BPM P-R Int : 152 ms QRS Dur : 78 ms QT Int : 426 ms P-R-T Axes : 55 9 36 degrees QTcB Int : 418 ms Sinus bradycardia Otherwise normal ECG When compared with ECG of 06-Aug-2024 00:02, No significant change was found Confirmed by Lauren Deleon (Jermaine) on 08/07/2024 10:18:57 AM Referred By: REFERRED SELF Confirmed By: Lauren Deleon
[2024-08-07 11:10] VITALS: BP 185/64; PULSE 64; RESP 18; TEMP 98.2; O2SAT 94
--- NOTE | 2024-08-07 12:46 | Discharge Summary ---
Discharge Summary Date of Service August 07, 2024 Principal Dx & Hospital Course #1 = Principal Diagnosis (1) Complex laceration of scalp: Plan Pt is a 89-year-old female with past med history significant for CAD, hypertension, hyperlipidemia, left ventricular hypertrophy, history of diabetes who presented after a fall and injury to the back of the head with significant bleeding. Also found to have an elevated troponin level. Patient stated she was walking in her bedroom and tripped over the corner of the comforter and fell backwards striking her head on the chest/ night stand. Started bleeding from the back of the head. No loss of consciousness. Not on anticoagulation. Laceration was repaired with lilo. Complex laceration of scalp Pt fell, likely mechanical, hit the back of her head Not on anticoagulation but on baby aspirin head CT, face CT, cervical spine CT unremarkable for acute fractures/trauma Profuse bleeding from posterior scalp laceration, s/p stapled repair in the ED on 08/05/24, 8 lilo counted on exam, need to be removed in 10 days Empiric Augmentin 875mg BID x total of 7 days. Discharged with the same with probiotic. Per pt, no TDAP in the last 5 years. TDAP given before discharge PT OT recommending home, no need for services. PCP followup after discharge Hypertensive Urgency Pt with significant BP readings Attributed to situation above with some anxiety Home meds amlodipine, losartan, Imdur and metoprolol succinate were continued Pt follows with [facility], close Cardiology follow up after discharge Elevated troponin Demand Ischemia Initial troponin 14 repeat is 45, has since downtrended EKG NSR Echo noting EF 65 to 70%, mild LVH, grade 1 diastolic dysfunction, mild aortic regurgitation No chest pain or shortness of breath Doubt ACS Pt follows with [facility], close Cardiology follow up after discharge History of CAD 70 to 80% narrowing of the small branch of the left circumflex No stents On aspirin statin, beta-louisa and Imdur Cardiology follow up as above History of diabetes Not currently on meds Sliding scale Hgba1c of 7.3 PCP followup Notes For Next Care Provider Per ED physician, remove lilo in 10 days. Placed on 08/05/24. Eight lilo counted on exam. Please ensure follow up with Cardiology for noted hypertensive urgency and elevated troponin Medication Changes From Visit Augmentin 875mg for 6 more days with probiotic TDAP given Admission HPI Per Admitting Provider 89-year-old female with past med history significant for CAD, hypertension, hyperlipidemia, left ventricular hypertrophy history of diabetes comes with a fall and injury to the back of the head and bleeding and also found to have elevated troponin. Patient was walking in bedroom and tripped over the corner of the comforter and fell backwards striking her head on the chest/ night stand. And she was started bleeding from the back of the head. No loss of consciousness. Not on anticoagulation. Patient had scalp laceration on the right posteriorly parietal region had pulsatile bleeding it was injected with 3 cc lidocaine with epi and successful tamponade of the bleed. Laceration was repaired with lilo. Patients pain is under control now. Denies any blurred vision or double vision. No runny nose. No sore throat. No cough. No fevers. No chest pain or shortness of. No feeling of dizziness. No palpitation. No abdominal pain. Normal bowel and bladder movements. She ambulates without support per patient. Lives with her . 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 Cardiac stent placed. History of left total knee replacement. History of laparotomy. History of GERD. Family history. Father had hypertension. Family significant diabetes. Social history. No smoking. No alcohol use. No drug use. Admission Exam Per Admitting Provider General- Not in distress Head- laceration on right posterior parietal region Eyes- PERRL. ENT- oropharynx clear Neck- supple, no JVD. Lungs- clear to auscultation no wheezing or crackles Heart- regular rate and rhythm; no murmur, no gallop. Abdomen- normal bowel sounds, soft, nontender, no distension Extremities- no pretibial edema, no erythema seen Neuro- alert, oriented PERRL, EOMI; no facial palsy; no dysarthria; moves extremities Discharge Exam General: Alert, oriented Psych: Appropriate mood and affect Neuro: AAOx3 HEENT: NC, bloody hair, stapled laceration on back of scalp CV: RRR Resp: Breath sounds clear bilaterally, no increased effort of breathing Abdomen:Soft, nontender Extremities: No edema in lower extremities bilaterally. Updated Medication List Medication Instructions Recorded Confirmed Type cholecalciferol (vitamin D3) 50 2,000 unit PO QAM 11/11/18 08/06/24 History mcg (2,000 unit) capsule (Vitamin D3) docusate sodium 100 mg capsule 100 mg PO HS 11/11/18 08/06/24 History fluticasone furoate 100 1 inh inhalation 2XWK 11/11/18 08/06/24 History mcg-vilanterol 25 mcg/dose inhalation powder (Breo Ellipta) fluticasone propionate 50 2 spray intranasal HS PRN 11/11/18 08/06/24 History mcg/actuation nasal Congestion spray,suspension (Flonase Allergy Relief) aspirin 81 mg tablet,delayed 81 mg PO DAILY 10/30/20 08/06/24 History release (Sandra Low Dose Aspirin) brimonidine 0.2 % eye drops 1 drp OPB BID 10/30/20 08/06/24 History calcium carbonate (Tums E-X) 300 mg PO 3XWK 10/30/20 08/06/24 History melatonin 10 mg tablet 10 mg PO HS 10/30/20 08/06/24 History amlodipine 5 mg tablet (Norvasc) 5 mg PO QAM #30 tabs 10/31/20 08/06/24 Rx atorvastatin 20 mg tablet 20 mg PO HS 05/12/22 08/06/24 History isosorbide mononitrate 30 mg 30 mg PO QDL 05/12/22 08/06/24 History tablet,extended release 24 hr acetaminophen 650 mg 650 mg PO Q12H PRN Pain 02/04/24 08/06/24 History tablet,extended release (Tylenol Arthritis Pain) losartan 25 mg tablet 25 mg PO QDL 08/06/24 08/06/24 History metoprolol succinate 25 mg 12.5 mg PO HS 08/06/24 08/06/24 History tablet,extended release 24 hr psyllium husk 3.4 gram/5.4 gram 1.5 tbsp PO BID 08/06/24 08/06/24 History oral powder (Metamucil) Lactobacillus acidophilus 1,200 mg PO DAILY #30 caps 08/07/24 Rx amoxicillin 875 mg-potassium 1 tab PO BIDM #12 tabs 08/07/24 Rx clavulanate 125 mg tablet Hospital Stay Data Consultations 08/06/24 00:10 ED Decision to Admit Stat Diagnostic Imagining Performed 08/05/24 19:12 CT facial bones wo con Stat CT head/brain wo con Stat 08/05/24 20:19 CT cervical spine wo con Stat Face CT 08/05/24 19:12 Exam(s): CT FACIAL Without Contrast EXAM: CT Maxillofacial Without Intravenous Contrast CLINICAL HISTORY: Reason for exam: Trauma. TECHNIQUE: Axial computed tomography images of the face without intravenous contrast. CTDI is 11.02 mGy and DLP is 185.81 mGy-cm. Automated exposure control was utilized for the study. A dose lowering technique was utilized adhering to the principles of ALARA. COMPARISON: No relevant prior studies available. FINDINGS: Bones/joints: No acute fracture. Soft tissues: Unremarkable. Orbits: Unremarkable. Sinuses: Mild ethmoid sinus mucosal thickening. No fluid levels. IMPRESSION: No acute facial fracture. Electronically signed by: Srinivasa Stafford MD 08/05/24 20:[address] 08/05/24 19:12 Exam(s): CT HEAD Without Contrast EXAM: CT Head Without Intravenous Contrast CLINICAL HISTORY: Reason for exam: Trauma. TECHNIQUE: Axial computed tomography images of the head/brain without intravenous contrast. CTDI is 35.79 mGy and DLP is 546.36 mGy-cm. Automated exposure control was utilized for the study. A dose lowering technique was utilized adhering to the principles of ALARA. COMPARISON: 10/30/2020 FINDINGS: Brain: No hemorrhage, extra-axial fluid collection, mass effect, or edema. Basal ganglia calcifications on the left. Global proximal atrophy. Ventricles: Unremarkable. Bones/joints: Unremarkable. No fracture. Soft tissues: Posterior scalp laceration.. Sinuses: No acute sinusitis. Mastoid air cells: Unremarkable as visualized. IMPRESSION: No acute intracranial abnormality. Electronically signed by: Srinivasa Stafford MD 08/05/24 20:[address] 08/05/24 20:19 Exam(s): CT C SPINE EXAM: CT Cervical Spine Without Intravenous Contrast CLINICAL HISTORY: Reason for exam: fall from standing. TECHNIQUE: Axial computed tomography images of the cervical spine without intravenous contrast. CTDI is 12.67 mGy and DLP is 232.19 mGy-cm. Automated exposure control was utilized for the study. A dose lowering technique was utilized adhering to the principles of ALARA. COMPARISON: No relevant prior studies available. FINDINGS: Vertebrae: No acute fracture. No malalignment. Soft tissues: Unremarkable. IMPRESSION: No evidence of acute fracture or malalignment within the cervical spine. Electronically signed by: Srinivasa Stafford MD 08/05/24 21:54 PM Chest X-Ray 08/05/24 23:44 EXAM: XR chest 1V portable CLINICAL HISTORY: FELL. TECHNIQUE: X-ray of the chest was done in AP view. COMPARISON: 05/14/2022 CR. FINDINGS: Radiographic examination of the chest demonstrates clear lungs. Normal configuration of the mediastinum. The leta are normal in size and position. Cardiomegaly. The bony thorax is unremarkable. The costophrenic and cardiophrenic angles are clear. IMPRESSION: 1. No acute cardiopulmonary pathology. 2. Cardiomegaly. Stable. Electronically signed by Citlali Harris 08-06-2024 01:23 AM Pending Results Patient Have Any Pending Studies at Discharge: No Discharge Instructions Given to Patient (Per Discharging Provider) Tacho Santoro were admitted and treated after a fall at home. You had a scalp laceration that was repaired in the emergency room. We gave you a tetanus shot and you are prescribed antibiotics to help prevent an infection. Please continue with the antibiotics for an additional 6 days as well as the prescribed probiotic while on the antibiotics. You had lilo placed by the emergency room physician who repaired your laceration. She advised that the lilo can be removed after 10 days. This would be around the date August 15, 2024. Your blood pressure was also noted to be very high. You also had a high troponin level that has since come down. We recommend that you closely follow- up with your slate splitter after discharge about this. Please also keep close follow up with your primary care provider after discharge. Please do not hesitate to come back to the emergency room if your symptoms worsen or return. It was a pleasure taking care of you while you were here. Total Time Total Time Spent Total Time Spent (In Minutes): 60
[2024-08-07] MEDS: DIPHTHER/TETAN/PERTUS Vaccine (Tdap, Adol/Adult) 0.5mL IM ONE (13:50)
[2024-08-07] MEDS: ADVANCED PROBIOTIC 625 MG CAPSULE PO ONE (13:50)
== END 2024-08-07 15:11 | disposition home or self-care (01) | DRG 605 ==
LOC: ED 18:38 → EDINP 08-06 02:45 → INTOOBSV 08-06 02:45 → 2N 08-06 16:30